=== PATIENT | female | born 1940 | race Caucasian/White ===

== ENCOUNTER 2019-12-03 02:08 | Emergency (ER) | payer MEDICARE, MEDICAID, SELFPAY ==
[2019-12-03 01:53] VITALS: BP 171/51; PULSE 95; RESP 16; TEMP 36.5; O2SAT 98; BMI 33.5
--- NOTE | 2019-12-03 02:05 | CTR_ITS ---
PROCEDURE INFORMATION: Exam: CT Head Without Contrast Exam date and time: 12/03/2019 2:09 AM Age: 79 years old Clinical indication: Injury or trauma; Fall; Initial encounter; Blunt trauma (contusions or hematomas) and laceration; Consciousness not specified; Without residual foreign body; Forehead; Additional info: Fall, head lac TECHNIQUE: Imaging protocol: Computed tomography of the head without contrast. Total DLP: 831.73 mGy-cm Radiation optimization: All CT scans at this facility use at least one of these dose optimization techniques: automated exposure control; mA and/or kV adjustment per patient size (includes targeted exams where dose is matched to clinical indication); or iterative reconstruction. COMPARISON: No relevant prior studies available. FINDINGS: Brain: No acute intracranial hemorrhage or mass effect. There is decreased attenuation in the periventricular white matter, likely from microvascular disease. No definite acute infarct by CT. Ventricles: Ventricle size is normal for age. Bones/joints: No definite acute skull fracture. Sinuses: Minimal mucosal thickening in the left maxillary sinus. Included paranasal sinuses otherwise appear essentially clear. Mastoid air cells: No significant acute finding. Vasculature: Vascular calcifications in the internal carotid and vertebral basilar systems. CT/CT head wo con* [id number] IMPRESSION: 1. No acute intracranial hemorrhage or mass effect. 2. Changes of microvascular disease. 3. Other findings discussed above. Radiation Dose CTDIVOL = (mGy): DLP = 831.73 (mGy-cm)
[2019-12-03 02:06] VITALS: BP 164/60; PULSE 66; RESP 18; TEMP 37.2; O2SAT 99
--- NOTE | 2019-12-03 02:06 | ECG_ITS ---
Measurements Intervals [place] Rate: 66 P: -86 [place]: 158 QRS: 61 QRSD: 96 T: 57 QT: 393 QTc: 414 ECTOPIC ATRIAL RHYTHM ABNORMAL RHYTHM ECG No previous ECG available for comparison Electronically Signed On 12-03-2019 8:09:17 [employer] by Lazaro Broussard M.D. [email or web address]
--- NOTE | 2019-12-03 02:16 | PC.NURSE ---
Pt presents to ER after falling in home and hitting her head. Per pt, she got up from bed to go to bathroom, but then because nauseous, then dizzy, then fell onto floor.
--- NOTE | 2019-12-03 02:19 | W.ED.FALL ---
Documented by User: IWONA Painter 12/03/19 02:25 HPI - Fall General: Chief Complaint: Fall Stated Complaint: FALL/PASSING OUT Time Seen by Provider: 12/03/19 02:09 History of Present Illness: HPI Narrative: Patient arrived by EMS. Patient complains of fall earlier tonight. States she hit her head not sure what she hit. Patient says she felt like she was going to pass out but did not pass out. No loss of consciousness. Patient does have a laceration to middle of forehead extending up into the scalp line vertical. Patient denies shortness of breath chest pain or any other ongoing problems except possible UTI. MD complaint: fall Onset (ago): hour(s) Fall from: standing Fall witnessed: no Place fall occurred: home Loss of consciousness: None Prolonged down time: no Symptoms prior to fall: dizziness Location of injury: head Associated symptoms-after fall: Denies abdominal pain, chest pain or headache(s) Review of Systems General: Reports: 10 or more systems reviewed and unremarkable except in HPI and below (dizzieness) Const: Denies: fever, chills or body aches Eyes: Denies: change in vision or blurry vision ENMT: Denies: throat pain or nasal congestion Card: Denies: chest pain or shortness of breath on exertion Resp: Denies: shortness of breath, productive cough or non-productive cough GI: Denies: abdominal pain, nausea or vomiting : Reports: urinary frequency and urinary urgency Musc: Denies: extremity pain Skin/Breast: Denies: rash Neuro: Denies: headache Psych: Denies: anxiety or depression Emre/Lymph: Denies: easy bruising PFSH ED PFSH: Statuses (acute, chronic, etc) shown below reflect problem list status as previously entered and may not be historically accurate Social History Smoking and tobacco status: never smoked Physical Exam Narrative: EXAM NARRATIVE: 4 inch laceration vertical midline laceration of scalp and to forehead. Wound was closed with tissue adhesive without any complications. Const: COMMON NORMALS: no apparent distress, average body habitus and oriented x3 HENMT: COMMON NORMALS: normocephalic HEAD & SCALP: normal to inspection and normocephalic FACE & SINUS: normal facial exam Eye: COMMON NORMALS: conjunctivae normal GENERAL EYE: normal appearance of both eyes CONJUNCTIVA: Yes conjunctivae normal Neck/C-Spine: COMMON NORMALS: full ROM and no JVD CERVICAL SPINE: Yes cervical ROM normal and No pain with cervical ROM Chest: COMMONS NORMALS: inspection of chest normal Resp: COMMON NORMALS: normal respiratory effort and clear to auscultation bilaterally AUSCULTATION: clear to auscultation bilaterally Cardio: COMMON NORMALS: no JVD, regular rate and regular rhythm RATE: regular rate RHYTHM: regular rhythm GI: COMMON NORMALS: normal to inspection, nondistended, normoactive bowel sounds Extremity: COMMON NORMALS: normal to inspection and full ROM Neuro: COMMON NORMALS: oriented x3 and CN's II-XII intact bilaterally Procedures Laceration Laceration 1: Site: scalp and face Size (cm): 4 Description: linear Depth: simple, single layer Pre-repair: wound explored Skin layer closed with: other (tissue adhesive) Course Vital Signs: Vital signs: Vital Signs Temperature 97.7 F 12/03/19 01:53 Pulse Rate 95 12/03/19 01:53 Respiratory Rate 16 12/03/19 01:53 Blood Pressure 171/51 12/03/19 01:53 Pulse Oximetry 98 12/03/19 01:53 MDM - Fall Lab Data: Labs: Lab Results 12/03/19 12/03/19 12/03/19 Range/Units 02:00 02:00 03:10 WBC 14.3 H (4.0-10.0) 10^3/ uL RBC 5.39 H (4.1-5.3) 10^6/u L Hgb 15.2 (11.5-15.3) g/dL Hct 48.5 H (37.0-47.0) % MCV 90.0 (81-99) fL MCH 28.2 (28.0-34.0) pg MCHC 31.3 (30.0-36.0) g/dL RDW 14.9 (12.1-15.1) % Plt Count 219 (130-400) 10^3/c mm MPV 12.0 H (7.4-10.4) fL Neut % (Auto) 78.8 % Lymph % (Auto) 14.6 % [place] % (Auto) 5.3 % Eos % (Auto) 0.7 % Baso % (Auto) 0.3 % Neut # (Auto) 11.3 H (1.8-7.7) 10^3/u L Lymph # (Auto) 2.1 (0.8-4.8) 10^3/u L [place] # (Auto) 0.8 (0.2-0.9) 10^3/u L Eos # (Auto) 0.1 (0.0-0.8) 10^3/u L Baso # (Auto) 0.1 (0.0-0.1) 10^3/u L Nucleated RBC % (a uto) 0 % Nucleated RBCs # 0.0 /100WBC Sodium Cancelled Potassium Cancelled Chloride Cancelled Carbon Dioxide Cancelled Anion Gap Cancelled BUN Cancelled Creatinine Cancelled GFR Calculation Cancelled Glucose Cancelled POC Glucose (70-110) mg/dL Calcium Cancelled Total Bilirubin Cancelled AST Cancelled ALT Cancelled Alkaline Phosphata se Cancelled Total Protein Cancelled Albumin Cancelled Globulin Cancelled Urine Color Yellow (Yellow) Urine Appearance Hazy A (CLEAR) Urine pH 5 (5-7) Ur Specific Gravit y 1.020 (1.005-1.030) Urine Protein Neg (Negative) Urine Glucose (UA) 2+ (Normal) Urine Ketones Negative (Negative) Urine Occult Blood Neg (Negative) Urine Nitrate Negative (Negative) Urine Bilirubin Neg (NEGATIVE) Urine Urobilinogen Norm (Negative) mg/dL Ur Leukocyte Nevaeh ase Negative (Negative) Ur Squamous Epith Cells 10-15 H (0-5) Urine Bacteria Trace (NONE) Hyaline Casts 10-15 H Fine Granular Cast s 0-4 H /lpf Other Casts 0-4 /lpf 12/03/19 12/03/19 Range/Units 03:40 03:43 WBC (4.0-10.0) 10^3/ uL RBC (4.1-5.3) 10^6/u L Hgb (11.5-15.3) g/dL Hct (37.0-47.0) % MCV (81-99) fL MCH (28.0-34.0) pg MCHC (30.0-36.0) g/dL RDW (12.1-15.1) % Plt Count (130-400) 10^3/c mm MPV (7.4-10.4) fL Neut % (Auto) % Lymph % (Auto) % [place] % (Auto) % Eos % (Auto) % Baso % (Auto) % Neut # (Auto) (1.8-7.7) 10^3/u L Lymph # (Auto) (0.8-4.8) 10^3/u L [place] # (Auto) (0.2-0.9) 10^3/u L Eos # (Auto) (0.0-0.8) 10^3/u L Baso # (Auto) (0.0-0.1) 10^3/u L Nucleated RBC % (a uto) % Nucleated RBCs # /100WBC Sodium 139 Potassium 5.3 H Chloride 100 Carbon Dioxide 25 Anion Gap 19.3 H BUN 19 Creatinine 1.0 H GFR Calculation Glucose 328 H POC Glucose 323 (70-110) mg/dL Calcium 10.6 H Total Bilirubin 0.4 AST 24 ALT 26 Alkaline Phosphata se 93 Total Protein 8.0 Albumin 4.7 Globulin 3.3 Urine Color (Yellow) Urine Appearance (CLEAR) Urine pH (5-7) Ur Specific Gravit y (1.005-1.030) Urine Protein (Negative) Urine Glucose (UA) (Normal) Urine Ketones (Negative) Urine Occult Blood (Negative) Urine Nitrate (Negative) Urine Bilirubin (NEGATIVE) Urine Urobilinogen (Negative) mg/dL Ur Leukocyte Nevaeh ase (Negative) Ur Squamous Epith Cells (0-5) Urine Bacteria (NONE) Hyaline Casts Fine Granular Cast s /lpf Other Casts /lpf EKG Data^: EKG 1: EKG interpretation date: 12/03/19 EKG interpretation time: 02:25 Interpretation: 66bpm, ectopic atrial , pr-158ms Discharge Plan Discharge Patient Disposition: Home, Self-Care Clinical Impression: Fall Qualifiers: Encounter type: initial encounter Qualified Code(s): W19.XXXA - Unspecified fall, initial encounter Laceration of head Qualifiers: Encounter type: initial encounter Location of open wound of head: other part of head Foreign body presence: without foreign body Qualified Code(s): S01.81XA - Laceration without foreign body of other part of head, initial encounter Condition: Stable Prescriptions: No Action metformin 500 mg Tablet 500 mg PO BID RF: 0 verapamil 360 mg Capsule,Ext Rel. Pellets 24 Hr 360 mg PO QAM RF: 0 lisinopril 20 mg Tablet 20 mg PO BID RF: 0 Mucinex 600 mg Tablet Extended Release 12hr 600 mg PO Q12H RF: 0 Zyrtec 10 mg Tablet 10 mg PO DAILY RF: 0 furosemide 20 mg Tablet 20 mg PO DAILY RF: 0 potassium chloride 20 mEq Tablet Extended Release 20 meq PO DAILY RF: 0 Levemir FlexTouch U-100 Insuln 70 units SUBCUT DAILY RF: 0 Discharge Orders: Discharge Order (Routine); Ordered 12/03/19 Ordered By: Danie New Referrals: Marcelina Enrique FNP-C [Primary Care Provider] - Discharge Diet: Advance as tolerated Discharge Activity: Resume usual activity Patient Instructions: Laceration (ED), Minor Head Injury (ED) Coding Level of Care Code ED Welding Rod Coater for Chg Fwd Exam Problem Focused Documented by User: Danie New MD 12/03/19 04:23 HPI - Fall General: Chief Complaint: Fall Stated Complaint: FALL/PASSING OUT Time Seen by Provider: 12/03/19 02:09 [facility] ED PFSH: Statuses (acute, chronic, etc) shown below reflect problem list status as previously entered and may not be historically accurate Social History Smoking and tobacco status: never smoked Course Vital Signs: Vital signs: Vital Signs Temperature 97.7 F 12/03/19 01:53 Pulse Rate 95 12/03/19 01:53 Respiratory Rate 16 12/03/19 01:53 Blood Pressure 171/51 12/03/19 01:53 Pulse Oximetry 98 12/03/19 01:53 MDM - Fall MDM Narrative: Medical decision making narrative: Patient presents here with head injury and head laceration from a fall. Patient is well-appearing here and head CT is normal. She did not have any chest pain prior or syncope. Patient is stable for discharge and return with worsening. I saw patient with midlevel Dave. Tian and agree with his history and plan. Lab Data: Labs: Lab Results 12/03/19 12/03/19 12/03/19 Range/Units 02:00 02:00 03:10 WBC 14.3 H (4.0-10.0) 10^3/ uL RBC 5.39 H (4.1-5.3) 10^6/u L Hgb 15.2 (11.5-15.3) g/dL Hct 48.5 H (37.0-47.0) % MCV 90.0 (81-99) fL MCH 28.2 (28.0-34.0) pg MCHC 31.3 (30.0-36.0) g/dL RDW 14.9 (12.1-15.1) % Plt Count 219 (130-400) 10^3/c mm MPV 12.0 H (7.4-10.4) fL Neut % (Auto) 78.8 % Lymph % (Auto) 14.6 % [place] % (Auto) 5.3 % Eos % (Auto) 0.7 % Baso % (Auto) 0.3 % Neut # (Auto) 11.3 H (1.8-7.7) 10^3/u L Lymph # (Auto) 2.1 (0.8-4.8) 10^3/u L [place] # (Auto) 0.8 (0.2-0.9) 10^3/u L Eos # (Auto) 0.1 (0.0-0.8) 10^3/u L Baso # (Auto) 0.1 (0.0-0.1) 10^3/u L Nucleated RBC % (a uto) 0 % Nucleated RBCs # 0.0 /100WBC Sodium Cancelled Potassium Cancelled Chloride Cancelled Carbon Dioxide Cancelled Anion Gap Cancelled BUN Cancelled Creatinine Cancelled GFR Calculation Cancelled Glucose Cancelled POC Glucose (70-110) mg/dL Calcium Cancelled Total Bilirubin Cancelled AST Cancelled ALT Cancelled Alkaline Phosphata se Cancelled Total Protein Cancelled Albumin Cancelled Globulin Cancelled Urine Color Yellow (Yellow) Urine Appearance Hazy A (CLEAR) Urine pH 5 (5-7) Ur Specific Gravit y 1.020 (1.005-1.030) Urine Protein Neg (Negative) Urine Glucose (UA) 2+ (Normal) Urine Ketones Negative (Negative) Urine Occult Blood Neg (Negative) Urine Nitrate Negative (Negative) Urine Bilirubin Neg (NEGATIVE) Urine Urobilinogen Norm (Negative) mg/dL Ur Leukocyte Nevaeh ase Negative (Negative) Ur Squamous Epith Cells 10-15 H (0-5) Urine Bacteria Trace (NONE) Hyaline Casts 10-15 H Fine Granular Cast s 0-4 H /lpf Other Casts 0-4 /lpf 12/03/19 12/03/19 Range/Units 03:40 03:43 WBC (4.0-10.0) 10^3/ uL RBC (4.1-5.3) 10^6/u L Hgb (11.5-15.3) g/dL Hct (37.0-47.0) % MCV (81-99) fL MCH (28.0-34.0) pg MCHC (30.0-36.0) g/dL RDW (12.1-15.1) % Plt Count (130-400) 10^3/c mm MPV (7.4-10.4) fL Neut % (Auto) % Lymph % (Auto) % [place] % (Auto) % Eos % (Auto) % Baso % (Auto) % Neut # (Auto) (1.8-7.7) 10^3/u L Lymph # (Auto) (0.8-4.8) 10^3/u L [place] # (Auto) (0.2-0.9) 10^3/u L Eos # (Auto) (0.0-0.8) 10^3/u L Baso # (Auto) (0.0-0.1) 10^3/u L Nucleated RBC % (a uto) % Nucleated RBCs # /100WBC Sodium 139 Potassium 5.3 H Chloride 100 Carbon Dioxide 25 Anion Gap 19.3 H BUN 19 Creatinine 1.0 H GFR Calculation Glucose 328 H POC Glucose 323 (70-110) mg/dL Calcium 10.6 H Total Bilirubin 0.4 AST 24 ALT 26 Alkaline Phosphata se 93 Total Protein 8.0 Albumin 4.7 Globulin 3.3 Urine Color (Yellow) Urine Appearance (CLEAR) Urine pH (5-7) Ur Specific Gravit y (1.005-1.030) Urine Protein (Negative) Urine Glucose (UA) (Normal) Urine Ketones (Negative) Urine Occult Blood (Negative) Urine Nitrate (Negative) Urine Bilirubin (NEGATIVE) Urine Urobilinogen (Negative) mg/dL Ur Leukocyte Nevaeh ase (Negative) Ur Squamous Epith Cells (0-5) Urine Bacteria (NONE) Hyaline Casts Fine Granular Cast s /lpf Other Casts /lpf Imaging Data^: CT Head: Attestation: I personally reviewed and interpreted this imaging study as follows: Radiologist's impression: Ordering Physician: Flora Tian Sr, [facility] Date of Service: 12/03/19 Procedure(s): CT head wo con* [id number] Accession Number(s): [id number] cc: Flora Tian Sr, [facility] PROCEDURE INFORMATION: Exam: CT Head Without Contrast Exam date and time: 12/03/2019 2:09 AM Age: 79 years old Clinical indication: Injury or trauma; Fall; Initial encounter; Blunt trauma (contusions or hematomas) and laceration; Consciousness not specified; Without residual foreign body; Forehead; Additional info: Fall, head lac TECHNIQUE: Imaging protocol: Computed tomography of the head without contrast. Total DLP: 831.73 mGy-cm Radiation optimization: All CT scans at this facility use at least one of these dose optimization techniques: automated exposure control; mA and/or kV adjustment per patient size (includes targeted exams where dose is matched to clinical indication); or iterative reconstruction. COMPARISON: No relevant prior studies available. FINDINGS: Brain: No acute intracranial hemorrhage or mass effect. There is decreased attenuation in the periventricular white matter, likely from microvascular disease. No definite acute infarct by CT. Ventricles: Ventricle size is normal for age. Bones/joints: No definite acute skull fracture. Sinuses: Minimal mucosal thickening in the left maxillary sinus. Included paranasal sinuses otherwise appear essentially clear. Mastoid air cells: No significant acute finding. Vasculature: Vascular calcifications in the internal carotid and vertebral basilar systems. CT/CT head wo con* [id number] IMPRESSION: 1. No acute intracranial hemorrhage or mass effect. 2. Changes of microvascular disease. 3. Other findings discussed above. Discharge Plan Discharge Patient Disposition: Home, Self-Care Clinical Impression: Fall Qualifiers: Encounter type: initial encounter Qualified Code(s): W19.XXXA - Unspecified fall, initial encounter Laceration of head Qualifiers: Encounter type: initial encounter Location of open wound of head: other part of head Foreign body presence: without foreign body Qualified Code(s): S01.81XA - Laceration without foreign body of other part of head, initial encounter Condition: Stable Prescriptions: No Action metformin 500 mg Tablet 500 mg PO BID RF: 0 verapamil 360 mg Capsule,Ext Rel. Pellets 24 Hr 360 mg PO QAM RF: 0 lisinopril 20 mg Tablet 20 mg PO BID RF: 0 Mucinex 600 mg Tablet Extended Release 12hr 600 mg PO Q12H RF: 0 Zyrtec 10 mg Tablet 10 mg PO DAILY RF: 0 furosemide 20 mg Tablet 20 mg PO DAILY RF: 0 potassium chloride 20 mEq Tablet Extended Release 20 meq PO DAILY RF: 0 Levemir FlexTouch U-100 Insuln 70 units SUBCUT DAILY RF: 0 Discharge Orders: Discharge Order (Routine); Ordered 12/03/19 Ordered By: Danie New Referrals: Marcelina Enrique FNP-C [Primary Care Provider] - Discharge Diet: Advance as tolerated Discharge Activity: Resume usual activity Patient Instructions: Laceration (ED), Minor Head Injury (ED) Coding Level of Care Code ED Welding Rod Coater for Cheryle Russell Exam Problem Focused
[2019-12-03 02:51] LABS: Basophils # 0.1 10^3/uL (0.0-0.1); Basophils % 0.3 %; Eosinophils # 0.1 10^3/uL (0.0-0.8); Eosinophils % 0.7 %; Hematocrit 48.5 % (37.0-47.0); Hemoglobin 15.2 g/dL (11.5-15.3); Lymphocytes # 2.1 10^3/uL (0.8-4.8); Lymphocytes % 14.6 %; Mean Corpuscular HGB Conc 31.3 g/dL (30.0-36.0); Mean Corpuscular Hemoglobin 28.2 pg (28.0-34.0); Monocytes # 0.8 10^3/uL (0.2-0.9); Monocytes % 5.3 %; Neutrophils # 11.3 10^3/uL (1.8-7.7); Neutrophils % 78.8 %; Nucleated Red Blood Cells % 0 %; Platelet Count 219 10^3/cmm (130-400); Red Blood Count 5.39 10^6/uL (4.1-5.3); Red Cell Distribution Width 14.9 % (12.1-15.1); White Blood Count 14.3 10^3/uL (4.0-10.0)
[2019-12-03 03:06] VITALS: BP 113/60; PULSE 63; RESP 18; O2SAT 97
[2019-12-03 03:47] LABS: Glucose Point of Care 323 mg/dL (70-110)
[2019-12-03 03:52] LABS: Bilirubin Urine Neg (NEGATIVE); Blood Urine Neg (Negative); Glucose Urine UA 2+ (Normal); Ketones Urine Negative (Negative); Leukocyte Esterase Urine Negative (Negative); Nitrate Urine Negative (Negative); Protein Urine Neg (Negative); Urine Appearance Hazy (CLEAR); Urine Color Yellow (Yellow); Urobilinogen Urine Norm (Negative); pH Urine 5 (5-7)
[2019-12-03 03:53] LABS: Add Urine Microscopic? YES
[2019-12-03 04:00] LABS: Fine Granular Casts Urine 0-4 /lpf
[2019-12-03 04:00] LABS: Alanine Aminotransferase 26 U/L (0-33); Albumin Level 4.7 g/dL (3.5-5.2); Alkaline Phosphatase 93 IU/L (35-105); Anion Gap 19.3 (5-19); Aspartate Amino Transferase 24 U/L (0-32); Blood Urea Nitrogen 19 mg/dL (8-23); Calcium 10.6 mg/Dl (8.8-10.2); Carbon Dioxide 25 mmol/L (22-29); Chloride 100 mmol/L (98-107); Globulin 3.3 g/dL (1.3-4.6); Glucose 328 mg/dL (74-106); Potassium 5.3 mmol/L (3.5-5.1); Sodium 139 mmol/L (136-145); Total Bilirubin 0.4 mg/dL (0.15-1.2)
[2019-12-03 04:02] LABS: Bacteria Urine TRACE
[2019-12-03 04:03] LABS: Add Urine Culture? No; Other Casts Urine 0-4 /lpf
[2019-12-03 04:28] VITALS: BP 147/57; PULSE 64; RESP 18; O2SAT 97
[2019-12-03] MEDS: HYDROcodone-acetaminophen 5-325 mg Tablet 1 TAB PO (04:34)
[2019-12-03] MEDS: insulin regular-human 100 units/1 mL 5 UNIT SUBCUT (04:50)
[2019-12-03 07:55] LABS: WBC Urine 0-4 /hpf (0-5)
== END 2019-12-03 04:56 | disposition home or self-care (01) ==
PROVIDERS: Nurse Practitioner Family; Emergency Provider Emergency Medicine; Family Provider Nurse Practitioner Family; PCP Nurse Practitioner Family
DX: S01.01XA Laceration without foreign body of scalp, initial encounter (principal); W19.XXXA Unspecified fall, initial encounter; Y92.009 Unspecified place in unspecified non-institutional (private) residence as the place of occurrence of the external cause; Z79.4 Long term (current) use of insulin
CPT/HCPCS: 12002; 36415; 36416; 70450; 80053; 81003; 82962; 85025; 93005; 96372; 99282; A9270; J1815

== ENCOUNTER → 2020-02-20 12:48 | Outpatient (BNVA) | payer MEDICARE, MEDICAID, SELFPAY | PROVIDERS: Family Provider Nurse Practitioner Family; PCP Nurse Practitioner Family; Visit Provider Nurse Practitioner Family | DX: J06.9 Acute upper respiratory infection, unspecified (principal); E11.65 Type 2 diabetes mellitus with hyperglycemia; E55.9 Vitamin D deficiency, unspecified; E03.8 Other specified hypothyroidism; I10 Essential (primary) hypertension; Z79.4 Long term (current) use of insulin | CPT/HCPCS: 80053; 80061; 82306; 84443; 85025 ==

== ENCOUNTER → 2020-03-12 00:01 | Outpatient (BNVA) | payer MEDICARE, MEDICAID, SELFPAY | PROVIDERS: Family Provider Nurse Practitioner Family; PCP Nurse Practitioner Family; Visit Provider Nurse Practitioner | DX: E11.9 Type 2 diabetes mellitus without complications (principal) | CPT/HCPCS: 81000; 83036 ==

== ENCOUNTER 2020-04-07 08:56 | Outpatient (CLI) | payer MEDICARE, MEDICAID, SELFPAY ==
--- NOTE | 2020-04-07 09:11 | CT_ITS ---
WS: [id number] CTA NECK TECHNIQUE: Contrast enhanced CTA of the neck with coronal and sagittal reformatted images and maximum intensity projection (MIP) images. NASCET criteria utilized. CLINICAL INFORMATION: Carotid stenosis COMPARISON: September 01, 2019 and March 21, 2018 DLP: [address] scans at [facility] use at least one of these dose optimization techniques: automat ed exposure control; mA and/or kV adjustment per patient size (includes targeted exams where dose is matched to clinical indication); or iterative reconstruction. FINDINGS: RIGHT: Right common carotid artery is patent. Moderate atheromatous disease right carotid bulb extend ing into the ICA with right proximal ICA stenosis measuring approximately 60% unchanged from previous . Right ICA is patent to the skull base. LEFT: Left common carotid artery is patent. No significant left ICA stenosis. Left ICA is patent to t he skull base. Codominant and patent vertebral arteries bilaterally. Moderate calcified atheromatous disease involvi ng both cavernous carotid arteries unchanged. Proximal gulkana of Zhu appears unremarkable. Mastoid air cells are well aerated. Paranasal sinuses are well aerated. Mild mucosal thickening in th e ethmoid air cells. Partially visualized moderate intracranial parenchymal volume loss. Parotid glands are normal. Normal visualized tongue base. No evidence of supraglottic or glottic mass . Mild spondylitic changes cervical spine. CT/CT angio neck 50591 IMPRESSION: 1. Right ICA stenosis measures approximately 60% similar to previous. 2. Prior postoperative changes left carotid endarterectomy. No recurrent steno sis. 3. Codominant and patent vertebral arteries bilaterally. Proximal basilar akshat ry is patent. 4. Intracranial cavernous carotid calcification with moderate stenosis unchang ed.. 5. Partially visualized intracranial [place] of Zhu appears unremarkable.
[2020-04-07 09:59] LABS: Blood Urea Nitrogen 14 mg/dL (8-23)
[2020-04-07] MEDS: iohexol 350 mg/mL 100 mL Btl IV (10:14)
== END 2020-04-07 08:57 | disposition home or self-care (01) ==
LOC: RADWPI 09:02
PROVIDERS: Family Provider Nurse Practitioner Family; PCP Nurse Practitioner Family; Visit Provider Internal Medicine Cardiovascular Disease
DX: I65.21 Occlusion and stenosis of right carotid artery (principal)
CPT/HCPCS: 70498; 82565; 84520; Q9967

== ENCOUNTER → 2020-04-26 11:55 | Outpatient (BNVA) | payer MEDICARE, MEDICAID, SELFPAY | PROVIDERS: Family Provider Nurse Practitioner Family; PCP Nurse Practitioner Family; Visit Provider Nurse Practitioner Family | DX: E78.5 Hyperlipidemia, unspecified (principal); J30.89 Other allergic rhinitis; R60.0 Localized edema; E11.69 Type 2 diabetes mellitus with other specified complication; Z76.0 Encounter for issue of repeat prescription; K21.9 Gastro-esophageal reflux disease without esophagitis; M54.5 Low back pain; M25.551 Pain in right hip; Z91.19 Patient's noncompliance with other medical treatment and regimen; Z79.4 Long term (current) use of insulin; E03.8 Other specified hypothyroidism; I10 Essential (primary) hypertension; I87.2 Venous insufficiency (chronic) (peripheral); I65.23 Occlusion and stenosis of bilateral carotid arteries; W19.XXXA Unspecified fall, initial encounter; E04.1 Nontoxic single thyroid nodule; B37.3 Candidiasis of vulva and vagina; E55.9 Vitamin D deficiency, unspecified | CPT/HCPCS: 80053; 80061; 81000; 82306; 83036; 84443; 85025 ==

== ENCOUNTER → 2020-05-03 11:41 | Outpatient (BNVA) | payer MEDICARE, MEDICAID, SELFPAY | PROVIDERS: Family Provider Nurse Practitioner Family; PCP Nurse Practitioner Family; Visit Provider Nurse Practitioner Family | DX: M25.551 Pain in right hip (principal); W19.XXXA Unspecified fall, initial encounter | CPT/HCPCS: 73502 ==

== ENCOUNTER 2020-05-31 13:55 | Outpatient (CLI) | payer MEDICARE, MEDICAID, SELFPAY ==
--- NOTE | 2020-05-31 14:09 | USCV_ITS ---
Christina Julien Age: 79 Gender: F : 1940 Exam Date: 05/31/2020 14:33 Ordering Phys: Shyam Bellamy MD ([email or web address]) Technologist: ASHWIN OLIVIA [place] [facility] [place]: CAROTID STENOSIS Risk Factors: Previous Vascular Surgery: L CEA Right Brachial BP: / Left Brachial BP: / Right Left Velocity (cm/s) Spectral Plaque Velocity (cm/s) Spectral Plaque Syst/Diast Broadening Syst/Diast Broadening 106.90/12.10 Prox CCA 100.30/ 13.40 90.40/ 9.90 Mid CCA 82.80 / 9.90 64.50/ 10.90 Distal CCA 66.40 / 9.20 149.10/21.80 Prox ICA 86.20 / 22.50 104.10/15.50 Mid ICA 124.60/ 29.80 139.80/34.20 Distal ICA 88.90 / 15.10 155.40 ECA 88.60 1.15 ICA/CCA 1.50 Antegrade Vertebral Antegrade 72.30/ 18.40 cm/s 52.20/ 11.90 cm/s Bi Subclavian Bi 118.0 108.1 0 0 FINDINGS Moderate to heavy heterogeneous plaques of the right bifurcation and proximal internal carotid artery. Mild to moderate plaques of the left bifurcation and proximal internal carotid artery Antegrade flow in the vertebral arteries bilaterally Normal Doppler flow velocities in the external carotid arteries bilaterally CONCLUSIONS Moderate to heavy heterogeneous plaques at the right bifurcation and proximal internal carotid arterywith velocity elevation consistent with 50-79% stenosis. Mild to moderate plaques at the left bifurcation and proximal internal carotid arterywith velocity elevation consistent with 16-49% stenosis. Made to the study from 08/20/2018, there is progression of disease bilaterally Dr Shyam Bellamy MD [facility] (Electronically Signed) Final Date: 31 May 2020 21:10 S
--- NOTE | 2020-05-31 14:09 | US_ITS ---
WS: [id number] THYROID ULTRASOUND HISTORY: hypothyroid COMPARISON: 03/21/2018 Right lobe: 2.3 cm x 1.4 cm x 0.8 cm. Volume: 1.3 cm3. Small atrophic fibrotic RIGHT thyroid. Benign appearing subcentimeter hypoechoic nodule in the inferi or gland measures 4 x 3.5 mm. Left lobe: 1.8 cm x 1.1 cm x 0.6 cm. Volume: 0.6 cm3. Small atrophic gland. There is a very small ill-defined subcentimeter nodule in the inferior gland me asuring 4 x 3 x 4 mm. Isthmus: 0.3 cm. US/US thyroid 72578 IMPRESSION: 1. Shrunken fibrotic thyroid. 2. Bilateral subcentimeter thyroid nodules. Yearly evaluation by ultrasound re commended.
== END 2020-05-31 13:56 | disposition home or self-care (01) ==
PROVIDERS: Family Provider Nurse Practitioner Family; PCP Nurse Practitioner Family; Visit Provider Nurse Practitioner Family
DX: I65.23 Occlusion and stenosis of bilateral carotid arteries (principal); E03.9 Hypothyroidism, unspecified; E04.2 Nontoxic multinodular goiter
CPT/HCPCS: 76536; 93880

== ENCOUNTER → 2020-07-05 10:52 | Outpatient (BNVA) | payer MEDICARE, MEDICAID, SELFPAY | PROVIDERS: Family Provider Nurse Practitioner Family; PCP Nurse Practitioner Family; Visit Provider Nurse Practitioner Family | DX: R05 Cough (principal); E11.69 Type 2 diabetes mellitus with other specified complication; Z79.4 Long term (current) use of insulin; B37.3 Candidiasis of vulva and vagina | CPT/HCPCS: 71046; 81000 ==

== ENCOUNTER 2020-07-13 10:09 | Outpatient (CLI) | payer MEDICARE, MEDICAID, SELFPAY ==
--- NOTE | 2020-07-13 10:30 | CT_ITS ---
WS: [id number] CTA THORACIC TECHNIQUE: Contrast enhanced CTA of the thoracic aorta with coronal and sagittal reformatted images a nd maximum intensity projection (MIP) images. CLINICAL INFORMATION: abnormal chest cough COMPARISON: Radiograph July 05, 2020 DLP: 683.[address] scans at [facility] use at least one of these dose optimization techniques: automat ed exposure control; mA and/or kV adjustment per patient size (includes targeted exams where dose is matched to clinical indication); or iterative reconstruction. FINDINGS: Normal caliber thoracic aorta. Mild aortic calcification. Mild coronary calcification. Normal caliber descending thoracic aorta. Visualized upper abdominal aorta is normal caliber with mild to moderate aortic calcification. Lungs are well aerated. Subsegmental atelectasis in the lung bases. No suspicious pulmonary parenchym al opacities. No focal pneumonia. Moderate thoracic kyphosis. Hypertrophic changes mid thoracic spine. Proximal main pulmonary arteries are normal. Segmental and subsegmental pulmonary arteries appear nor mal. No evidence for pulmonary embolus. No mediastinal or hilar lymphadenopathy. Shotty AP window and mediastinal lymph nodes. Incidental prominent mediastinal fat corresponds to the radiographic findin gs. No axillary lymphadenopathy. Normal GE junction. Adrenal glands are normal. CT/CT angio chest [id number] IMPRESSION: 1. Normal caliber thoracic aorta. 2. Proximal pulmonary arteries are normal. No evidence for pulmonary embolus. 3. Mild chronic emphysematous changes. No acute pulmonary infiltrates. Subsegm ental atelectasis in the lung bases. 4. No mediastinal or hilar lymphadenopathy. 5. No other significant findings.
[2020-07-13 10:49] LABS: Blood Urea Nitrogen 22 mg/dL (8-23)
[2020-07-13] MEDS: iohexol 350 mg/mL 100 mL Btl IV (11:04)
== END 2020-07-13 10:10 | disposition home or self-care (01) ==
LOC: RADWPI 10:15
PROVIDERS: Family Provider Nurse Practitioner Family; PCP Nurse Practitioner Family; Visit Provider Nurse Practitioner Family
DX: R05 Cough (principal); R93.89 Abnormal findings on diagnostic imaging of other specified body structures; J98.11 Atelectasis
CPT/HCPCS: 71275; 82565; 84520; Q9967

== ENCOUNTER → 2020-09-22 10:45 | Outpatient (BNVA) | payer MEDICARE, MEDICAID, SELFPAY | PROVIDERS: Family Provider Nurse Practitioner Family; PCP Nurse Practitioner Family; Visit Provider Nurse Practitioner Family | DX: E11.69 Type 2 diabetes mellitus with other specified complication (principal); B37.3 Candidiasis of vulva and vagina; R30.0 Dysuria; Z79.4 Long term (current) use of insulin | CPT/HCPCS: 80053; 80061; 81000; 83036; 84443; 85025 ==

== ENCOUNTER → 2020-11-04 10:49 | Outpatient (BNVA) | payer MEDICARE, MEDICAID, SELFPAY | PROVIDERS: Family Provider Nurse Practitioner Family; PCP Nurse Practitioner Family; Visit Provider Nurse Practitioner Family | DX: R30.0 Dysuria (principal); R32 Unspecified urinary incontinence | CPT/HCPCS: 81000 ==

== ENCOUNTER → 2021-02-09 10:48 | Outpatient (BNVA) | payer MEDICARE, MEDICAID, SELFPAY | PROVIDERS: Family Provider Nurse Practitioner Family; PCP Nurse Practitioner Family; Visit Provider Nurse Practitioner Family | DX: E11.69 Type 2 diabetes mellitus with other specified complication (principal); Z79.4 Long term (current) use of insulin; E55.9 Vitamin D deficiency, unspecified; E03.8 Other specified hypothyroidism; E78.5 Hyperlipidemia, unspecified; B37.2 Candidiasis of skin and nail; I10 Essential (primary) hypertension; R60.0 Localized edema; I87.2 Venous insufficiency (chronic) (peripheral); R32 Unspecified urinary incontinence; K21.9 Gastro-esophageal reflux disease without esophagitis; E04.1 Nontoxic single thyroid nodule; I65.23 Occlusion and stenosis of bilateral carotid arteries; B37.3 Candidiasis of vulva and vagina; Z91.19 Patient's noncompliance with other medical treatment and regimen | CPT/HCPCS: 80053; 80061; 82306; 83036; 84443; 85025 ==

== ENCOUNTER → 2021-02-22 11:04 | Outpatient (BNVA) | payer MEDICARE, MEDICAID, SELFPAY | PROVIDERS: Family Provider Nurse Practitioner Family; PCP Nurse Practitioner Family; Visit Provider Nurse Practitioner Family | DX: M25.50 Pain in unspecified joint (principal); R10.9 Unspecified abdominal pain; K46.9 Unspecified abdominal hernia without obstruction or gangrene; G62.9 Polyneuropathy, unspecified; B35.1 Tinea unguium; K92.1 Melena; R10.84 Generalized abdominal pain | CPT/HCPCS: 85651; 86140; 86431 ==

== ENCOUNTER 2021-03-17 09:21 | Outpatient (CLI) | payer MEDICARE, MEDICAID, SELFPAY ==
--- NOTE | 2021-03-17 09:30 | US_ITS ---
WS: [id number] ULTRASOUND ABDOMEN CLINICAL INFORMATION: R10.9 - Unspecified abdominal pain COMPARISON: None. FINDINGS: Liver Size: Mild hepatomegaly Craniocaudal length: 17.0 cm. Echogenicity: Coarse with fatty infiltration Surface nodularity: None. Mass (size and location): None. Bile ducts Intrahepatic ducts: Normal. Common bile duct diameter: 0.5 cm. Gallbladder Removed Pancreas Normal as visualized. Spleen Splenomegaly: None. Craniocaudal length: 10.6 cm. Right kidney: Normal. Hydronephrosis: None. Size: 10.9 cm x 4.7 cm x 4.7 cm Left kidney: Normal. Hydronephrosis: None. Size: 10.7 cm x 6.0 cm x 5.5 cm. Abdominal aorta and IVC Visualized portions are normal. Ascites: Mild ascites US/US abdomen complete* [id number] IMPRESSION: 1. Mild hepatomegaly with fatty infiltration. 2. Prior cholecystectomy. 3. No hydronephrosis in either kidney. 4. Mild ascites
== END 2021-03-17 09:22 | disposition home or self-care (01) ==
LOC: RAD 09:32
PROVIDERS: PCP Nurse Practitioner Family; Visit Provider Nurse Practitioner Family
DX: R10.9 Unspecified abdominal pain (principal); K46.9 Unspecified abdominal hernia without obstruction or gangrene; R16.0 Hepatomegaly, not elsewhere classified; K76.0 Fatty (change of) liver, not elsewhere classified; Z90.49 Acquired absence of other specified parts of digestive tract; R18.8 Other ascites
CPT/HCPCS: 76700

== ENCOUNTER → 2021-05-03 11:27 | Outpatient (BNVA) | payer MEDICARE, MEDICAID, SELFPAY | PROVIDERS: PCP Nurse Practitioner Family; Visit Provider Nurse Practitioner Family | DX: E11.69 Type 2 diabetes mellitus with other specified complication (principal); E55.9 Vitamin D deficiency, unspecified; E03.8 Other specified hypothyroidism; E78.5 Hyperlipidemia, unspecified; B37.2 Candidiasis of skin and nail; I10 Essential (primary) hypertension; R60.0 Localized edema; I87.2 Venous insufficiency (chronic) (peripheral); R32 Unspecified urinary incontinence; K21.9 Gastro-esophageal reflux disease without esophagitis; E04.1 Nontoxic single thyroid nodule; I65.23 Occlusion and stenosis of bilateral carotid arteries; B37.3 Candidiasis of vulva and vagina; Z91.19 Patient's noncompliance with other medical treatment and regimen; Z79.4 Long term (current) use of insulin; Z76.0 Encounter for issue of repeat prescription | CPT/HCPCS: 80053; 80061; 83036; 84443; 85025 ==

== ENCOUNTER → 2021-05-24 11:21 | Outpatient (BNVA) | payer MEDICARE, MEDICAID, SELFPAY | PROVIDERS: PCP Nurse Practitioner Family; Visit Provider Internal Medicine Rheumatology | DX: M19.90 Unspecified osteoarthritis, unspecified site (principal); M54.5 Low back pain; G89.29 Other chronic pain; Z79.899 Other long term (current) drug therapy; L23.5 Allergic contact dermatitis due to other chemical products; E11.9 Type 2 diabetes mellitus without complications; Z79.4 Long term (current) use of insulin; M19.041 Primary osteoarthritis, right hand; M79.89 Other specified soft tissue disorders; M77.32 Calcaneal spur, left foot; M20.11 Hallux valgus (acquired), right foot; M77.31 Calcaneal spur, right foot | CPT/HCPCS: 36415; 72100; 72170; 73130; 73630; 82306; 99204; 99214 ==

== ENCOUNTER 2021-05-24 12:49 | Outpatient (CLI) | payer MEDICARE, MEDICAID, SELFPAY ==
--- NOTE | 2021-05-24 12:57 | XRR_ITS ---
PROCEDURE INFORMATION: Exam: XR Left Foot Exam date and time: 05/24/2021 12:57 PM Age: 80 years old Clinical indication: Foot; Bilateral; Patient HX: 1st visit with ra Dr. GOMEZ states she has no pain today but in her lumbar spine. Bk pain is a 4 and the rest is at 0 at the moment. PT pain is transient and it worsens as she is walking or movement; Additional info: Z79.899 - other terminal operator (current) drug therapy TECHNIQUE: Imaging protocol: XR Left foot. Views: 3 or more views. COMPARISON: No relevant prior studies available. FINDINGS: There is soft tissue swelling involving the dorsal foot and ankle. Plantar calcaneal spur. The Achilles tendon is not well evaluated. There is probable edema or infiltration of Kager's fat pad. Mild scattered degenerative changes. No fracture, dislocation or subluxation. No periosteal reaction or supsicious bone lesion. No tibiotalar joint effusion. XR/XR foot LT min 3V* [id number] IMPRESSION: 1. There is soft tissue swelling involving the dorsal foot and ankle. 2. Plantar calcaneal spur. 3. There is probable edema or infiltration of Kager's fat pad. 4. No acute fracture is seen.
--- NOTE | 2021-05-24 12:57 | XRR_ITS ---
PROCEDURE INFORMATION: Exam: XR Lumbosacral Spine Exam date and time: 05/24/2021 12:57 PM Age: 80 years old Clinical indication: Low back pain; Prior surgery; Surgery type: Gb; Patient HX: 1st visit with ra Dr. GOMEZ states she has no pain today but in her lumbar spine. Bk pain is a 4 and the rest is at 0 at the moment. PT pain is transient and it worsens as she is walking or movement; Additional info: Z79.899 - other intermediate teacher (current) drug therapy TECHNIQUE: Imaging protocol: XR of the lumbosacral spine. Views: 2 or 3 views. COMPARISON: CR XR hip RT 2-3V wo/w pel* [id number] 05/03/2020 11:43 AM FINDINGS: There are 5 lumbar type vertebral bodies. There is a grade 1 anterolisthesis of L5 likely related to facet joint degeneration. [id number]-[id number] degenerative spine most prominent at L5-S1. The sacroiliac joints are grossly symmetric. No acute fracture is identified. XR/XR lumbar spine 2-3V* [id number] IMPRESSION: 1. There is a grade 1 anterolisthesis of L5 likely related to facet joint degeneration. 2. Kghl-ac-mzfebiec degenerative spine most prominent at L5-S1. 3. No acute fracture is seen.
--- NOTE | 2021-05-24 12:57 | XRR_ITS ---
PROCEDURE INFORMATION: Exam: XR Right Foot Exam date and time: 05/24/2021 12:57 PM Age: 80 years old Clinical indication: Foot; Bilateral; Patient HX: 1st visit with ra Dr. GOMEZ states she has no pain today but in her lumbar spine. Bk pain is a 4 and the rest is at 0 at the moment. PT pain is transient and it worsens as she is walking or movement; Additional info: Z79.899 - other fpc (current) drug therapy TECHNIQUE: Imaging protocol: XR Right foot. Views: 3 or more views. COMPARISON: No relevant prior studies available. FINDINGS: Mild hallux valgus deformity. There is soft tissue swelling involving the dorsal foot and ankle. Plantar calcaneal spur. The Achilles tendon is not well evaluated. There is probable edema or infiltration of Kager's fat pad. Mild scattered degenerative changes. No fracture, dislocation or subluxation. No periosteal reaction or supsicious bone lesion. No tibiotalar joint effusion. XR/XR foot RT min 3V* [id number] IMPRESSION: 1. Mild hallux valgus deformity. 2. There is soft tissue swelling involving the dorsal foot and ankle. 3. Plantar calcaneal spur. 4. There is probable edema or infiltration of Kager's fat pad. 5. No acute fracture is seen.
--- NOTE | 2021-05-24 12:57 | XRR_ITS ---
PROCEDURE INFORMATION: Exam: XR Left Hand Exam date and time: 05/24/2021 12:57 PM Age: 80 years old Clinical indication: Hand; Bilateral; Patient HX: 1st visit with ra Dr. GOMEZ states she has no pain today but in her lumbar spine. Bk pain is a 4 and the rest is at 0 at the moment. PT pain is transient and it worsens as she is walking or movement; Additional info: Z79.899 - other assistant terminal manager (current) drug therapy TECHNIQUE: Imaging protocol: XR Left hand. Views: 3 or more views. COMPARISON: No relevant prior studies available. FINDINGS: There are small lucent lesions involving several of the phalanges which could reflect multiple myeloma. Mild degenerative changes at the radiocarpal, triscaphe and 1st carpometacarpal joints. No acute fracture, dislocation or subluxation is seen. No chondrocalcinosis is seen. XR/XR hand LT min 3V* [id number] IMPRESSION: 1. There are small lucent lesions involving several of the phalanges which could reflect multiple myeloma. 2. Mild degenerative changes at the radiocarpal, triscaphe and 1st carpometacarpal joints. 3. No acute fracture
--- NOTE | 2021-05-24 12:57 | XRR_ITS ---
PROCEDURE INFORMATION: Exam: XR Right Hand Exam date and time: 05/24/2021 12:57 PM Age: 80 years old Clinical indication: Hand; Bilateral; Patient HX: 1st visit with ra Dr. GOMEZ states she has no pain today but in her lumbar spine. Bk pain is a 4 and the rest is at 0 at the moment. PT pain is transient and it worsens as she is walking or movement; Additional info: Z79.899 - other [facility] (current) drug therapy TECHNIQUE: Imaging protocol: XR Right hand. Views: 3 or more views. COMPARISON: No relevant prior studies available. FINDINGS: There are a few small lucent lesions involving the phalanges reflect multiple myeloma. The scapholunate and lunotriquetral intervals are maintained. No chondrocalcinosis is seen. Mild primary osteoarthritis at the interphalangeal joint of the thumb. No fracture, dislocation or subluxation. XR/XR hand RT min 3V* [id number] IMPRESSION: 1. There are a few small lucent lesions involving the phalanges that could reflect multiple myeloma. 2. Mild primary osteoarthritis at the interphalangeal joint of the thumb. 3. No acute fracture.
--- NOTE | 2021-05-24 12:57 | XRR_ITS ---
PROCEDURE INFORMATION: Exam: XR Pelvis Exam date and time: 05/24/2021 12:57 PM Age: 80 years old Clinical indication: Hip pain; Bilateral; Prior surgery; Surgery type: Gb; Additional info: Z79.899 - other fci (current) drug therapy TECHNIQUE: Imaging protocol: XR pelvis. Views: 1 or 2 view. COMPARISON: CR XR hip RT 2-3V wo/w pel* [id number] 05/03/2020 11:43 AM FINDINGS: No fracture, dislocation or subluxation. Possible small sclerotic lesion in the left iliac wing. Possible subtle sclerotic lesion in intertrochanteric left femur. No evidence of small-bowel obstruction. There is a structure in the visualized upper abdomen that may reflect a prominent loop of gas-filled colon. Minimal degenerative changes at the hips. No gross free air. XR/XR pelvis 1-2V* [id number] IMPRESSION: 1. Minimal degenerative changes at the hips. 2. Possible small sclerotic lesion in the left iliac wing. Possible subtle sclerotic lesion in intertrochanteric left femur. Recommend CT to further assess. 3. There is a structure in the visualized upper abdomen that may reflect a prominent loop of gas-filled colon.
[2021-05-24 13:47] LABS: 25 Hydroxy Vitamin D 40 ng/mL (30-100)
[2021-05-25 15:12] LABS: Cyclic Citrullinated Peptide 17 UNITS
== END 2021-05-24 12:50 | disposition home or self-care (01) ==
PROVIDERS: PCP Nurse Practitioner Family; Visit Provider Internal Medicine Rheumatology
DX: M19.90 Unspecified osteoarthritis, unspecified site (principal); Z79.899 Other long term (current) drug therapy; M19.041 Primary osteoarthritis, right hand; M79.89 Other specified soft tissue disorders; M77.32 Calcaneal spur, left foot; M20.11 Hallux valgus (acquired), right foot; M77.31 Calcaneal spur, right foot
CPT/HCPCS: 36415; 72100; 72170; 73130; 73630; 82306

== ENCOUNTER 2021-07-06 10:06 | Outpatient (CLI) | payer MEDICARE, MEDICAID, SELFPAY ==
--- NOTE | 2021-07-06 10:00 | CT_ITS ---
WS: [id number] CT LEFT HIP, NONCONTRAST. HISTORY: R93.89 - Abnormal findings on diagnostic imaging exam. Technique: All CT scans at [facility] use at least one of these dose optimization techniq ues: automated exposure control; mA and/or kV adjustment per patient size (includes targeted exams wh ere dose is matched to clinical indication); or iterative reconstruction. DLP: Was not submitted. COMPARISON: CT 12/21/2017, pelvis radiograph 05/24/2021. Long-term stability sclerotic 13 mm lesion in the LEFT ilium. Stable since at least 12/21/2017. No bon e or osseous destruction or cortical thinning. No sclerotic foci present in the proximal LEFT femur. Very mild narrowing of the LEFT hip joint. Mild enthesopathy at the greater trochanter. Mild atrophy of the muscles surrounding the LEFT hip. No effusion over the greater trochanter. Mild atrophic uterus. There are a few visualized sigmoid diverticula without diverticulitis. Moderate calcification noted in the femoral arteries at the level of the hip. CT/CT hip LT wo con* [id number] IMPRESSION: 1. Mild degenerative changes at the LEFT hip and enthesopathy at the greater t rochanter. 2. Long-term stability of a sclerotic focus in the LEFT ilium is probably a audi ne island. Noted additional sclerotic foci. 3. Vascular calcifications.
[2021-07-06 12:05] LABS: Lactate Dehydrogenase 192 U/L (135-214)
[2021-07-07 07:38] LABS: PROTEIN, TOTAL 6.8 g/dL (6.1-8.1)
[2021-07-07 16:29] LABS: ALBUMIN 3.8 g/dL (3.8-4.8); ALPHA 1 GLOBULIN 0.3 g/dL (0.2-0.3); BETA 1 GLOBULIN 0.4 g/dL (0.4-0.6); BETA 2 GLOBULIN 0.4 g/dL (0.2-0.5); GAMMA GLOBULIN 0.9 g/dL (0.8-1.7)
== END 2021-07-06 10:07 | disposition home or self-care (01) ==
PROVIDERS: PCP Nurse Practitioner Family; Visit Provider Internal Medicine Rheumatology
DX: R93.89 Abnormal findings on diagnostic imaging of other specified body structures (principal); C90.00 Multiple myeloma not having achieved remission
CPT/HCPCS: 36415; 73700; 83615; 84155; 84165; 84260

== ENCOUNTER → 2021-08-04 11:25 | Outpatient (BNVA) | payer MEDICARE, MEDICAID, SELFPAY | PROVIDERS: PCP Nurse Practitioner Family; Visit Provider Nurse Practitioner Family | DX: I10 Essential (primary) hypertension (principal); R60.0 Localized edema; E78.5 Hyperlipidemia, unspecified; E03.8 Other specified hypothyroidism; Z79.4 Long term (current) use of insulin; J30.89 Other allergic rhinitis; Z76.0 Encounter for issue of repeat prescription; I87.2 Venous insufficiency (chronic) (peripheral); R32 Unspecified urinary incontinence; B37.2 Candidiasis of skin and nail; K21.9 Gastro-esophageal reflux disease without esophagitis; E55.9 Vitamin D deficiency, unspecified; I65.23 Occlusion and stenosis of bilateral carotid arteries; E04.1 Nontoxic single thyroid nodule; N39.498 Other specified urinary incontinence; B37.3 Candidiasis of vulva and vagina; Z91.19 Patient's noncompliance with other medical treatment and regimen | CPT/HCPCS: 80053; 80061; 83036; 84443; 85025 ==

== ENCOUNTER 2021-09-22 08:05 | Observation (INO) | payer MEDICARE, MEDICAID, SELFPAY ==
[2021-09-22 08:05] VITALS: BP 138/52; PULSE 71; RESP 23; TEMP 36.5; O2SAT 97; BMI 34.9
--- NOTE | 2021-09-22 08:11 | CT_ITS ---
WS: [id number] CT HEAD NONCONTRAST HISTORY: new onset seizure TECHNIQUE: Contiguous axial imaging performed through the brain in 2.5 mm imaging. Bone and soft tiss ue windows. Sagittal and coronal reformats reviewed. All CT scans at [facility] use at least one of these dose optimization techniques: automated exposure control; mA and/or kV adjustment per pa tient size (includes targeted exams where dose is matched to clinical indication); or iterative recon struction. DLP: 782.39 mGy.cm COMPARISON: 12/03/2019 Remote infarct in the LEFT parietal lobe with an adjacent calcification. Volume loss at the site of t he infarct. There is additional atrophy involving the frontal and temporal lobes which is similar to the prior examination. No acute infarcts or loss of the navarrete-white matter differentiation. Mild chronic small vessel ischemi c disease. Ventricles: Normal size with no hydrocephalus. Paranasal sinuses: Mild mucoperiosteal thickening in the ethmoid air cells. No air-fluid levels. Mastoid air cells: Well pneumatized. Calvarium and scalp: Skull is intact with no soft tissue edema or swelling. Moderate atherosclerotic plaque within the carotid arteries. CT/CT head wo con* [id number] IMPRESSION: 1. No acute intracranial hemorrhage or edema. 2. Remote infarct with encephalomalacia LEFT frontal lobe. 3. Moderate bifrontotemporal lobe atrophy and chronic ischemic disease. No int erval change.
--- NOTE | 2021-09-22 08:11 | XR_ITS ---
WS: [id number] Exam: XR chest 1V portable [id number] Date/Time of Exam: 09/22/2021 8:14 AM Reason For Exam: dyspnea/cough Comparison 07/05/2020. Probable infiltrate in the left lower lobe and retrocardiac region. Right lung is clear. No pneumotho rax is seen. Cardiomediastinal structures are unremarkable for technique. Bony elements are intact. Recommendations: Follow-up PA and lateral chest x-ray in several days might be considered for ongoing evaluation. XR/XR chest 1V portable [id number] IMPRESSION: 1. Findings suspicious for mild infiltrate in the left lower lobe.
--- NOTE | 2021-09-22 08:12 | ECG_ITS ---
[facility] Test Date: 2021-09-22 Pat Name: Christina Julien Department: Room: Gender: Female Soft Crab Shedder: : 1940 Requested By: Redd Vo Order Number: [id number] Latoya MD: Shyam Bellamy M.D. Measurements Intervals Cyril Rate: 68 P: SC: QRS: 86 QRSD: 145 T: 28 QT: 416 QTc: 445 Interpretive Statements Junctional rhythm with frequent supra ventricular ectopics RIGHT BUNDLE BRANCH BLOCK [120+ ms QRS DURATION, UPRIGHT V1, 40+ ms S IN I/aVL/V4/V5/V6] CRITICAL TEST RESULT Compared to ECG 12/03/2019 02:13:59 Right bundle-branch block now present Ectopic atrial rhythm no longer present Electronically Signed On 09-22-2021 23:55:45 CDT by Shyam Bellamy M.D. [id number] f
[2021-09-22 08:38] LABS: Glucose Point of Care 402 mg/dL (70-110)
--- NOTE | 2021-09-22 09:01 | NUR.SHIFT ---
pts blood glucose; 402. Dr malhotra
--- NOTE | 2021-09-22 09:02 | W.ED.SEIZURE ---
HPI - Seizure General: Chief Complaint: Seizure Stated Complaint: BRADYCARDIA, SEIZURE LIKE ACITIVITY Time Seen by Provider: 09/22/21 08:05 History of Present Illness: HPI Narrative: 81-year-old female presents to the emergency room via EMS complaint was that she had a seizure. Initially patient was lethargic and somewhat bradycardic we later got history from family and confirmed by the patient occurred after she had been straining on the toilet. She has no known history of seizures in the past. On EMS arrival she was bradycardic well into the 30s and she was given atropine which improved her heart rate into the 60s and remained there until she arrived here. She has no history of any arrhythmias. On arrival here she is awake and alert. MD complaint: possible seizure Onset (ago): minute(s) Description of Episode: tonic-clonic movement Trauma: No Seizure History: No Place: Home Associated symptoms: Reports confusion; Deny chest pain, chills, cough, diaphoresis, fever(s), anorexia, malaise, rash, short of breath, syncope or weakness Treatments prior to arrival: none Review of Systems Const: Denies: fever(s), chills, malaise or diaphoresis ENMT: Denies: throat pain, ear or mastoid pain, nasal discharge or nasal congestion Card: Denies: chest pain or syncope Resp: Denies: dyspnea, productive cough or non-productive cough GI: Denies: abdominal pain, nausea, vomiting, hematemesis, coffee ground emesis, diarrhea, constipation, bloating, hematochezia or melena : Denies: flank pain, difficulty voiding, dysuria, urinary frequency or urinary urgency Skin/Breast: Denies: rash or pruritus Neuro: Reports: confusion PFSH ED PFSH: Medical History Adult onset hypothyroidism Asymptomatic bilateral carotid artery stenosis Chemical induced allergic contact dermatitis Chronic GERD Chronic low back pain Diabetes Dyslipidemia Enrolled in chronic care management Environmental and seasonal allergies Essential hypertension Hypothyroidism (acquired) Leg swelling Lower extremity edema Medication refill Noncompliance Osteoarthritis (arthritis due to wear and tear of joints) Polyarthralgia Thyroid nodule Vaginal candidiasis Venous stasis dermatitis Vitamin D deficiency Surgical History History of cholecystectomy Family History Other Cancer Diabetes Hypertension Lung disease Social History Second hand smoke exposure: No Smoking risk assessment/counseling performed?: No Alcohol intake: never Desire information about alcohol rehabilitation?: No Counseling given: No Desire information about substance/drug rehabilitation?: No Counseling given: No Adopted: No Caregiver/support person: No Lives independently: Yes Household members: children Housing: House Marital status: / Number of children: 4 service: No Current occupational status: retired History of recent travel: No Current gender identity: Female Physical Exam Const: COMMON NORMALS: no acute distress GENERAL APPEARANCE: cooperative and comfortable ORIENTATION/CONSCIOUSNESS: Yes awake, Yes oriented to person, Yes oriented to place and Yes oriented to time HENMT: COMMON NORMALS: normocephalic, atraumatic and hearing grossly normal bilaterally HEAD & SCALP: normocephalic and atraumatic Neck/C-Spine: COMMON NORMALS: no JVD Resp: COMMON NORMALS: normal respiratory effort, No retractions, No use of accessory muscles and clear to auscultation bilaterally AUSCULTATION: clear to auscultation bilaterally Cardio: COMMON NORMALS: no JVD, regular rate, regular rhythm and No murmurs present (Cardio) RATE: regular rate RHYTHM: regular rhythm GI: COMMON NORMALS: Soft to palpation and No hepatosplenomegaly present AUSCULTATION: Yes normoactive bowel sounds PALPATION: Yes Soft to palpation, No Tenderness to palpation present (GI), No Guarding due to palpation present (GI) and Yes No hepatosplenomegaly present Extremity: COMMON NORMALS: normal to inspection, capillary refill normal, no clubbing, cyanosis or edema, no calf tenderness and no pedal edema Neuro: SENSORIUM/ORIENTATION: Yes oriented to person, Yes oriented to place and Yes oriented to time Skin: COMMON NORMALS: no rashes or lesions noted GENERAL SKIN EXAM: no rashes or lesions noted Course Vital Signs: Vital signs: Vital Signs Temperature 97.6 F 09/22/21 11:06 Pulse Rate 53 L 09/22/21 11:06 Respiratory Rate 11 L 09/22/21 11:06 Blood Pressure 131/49 09/22/21 11:06 Pulse Oximetry 100 09/22/21 11:06 MDM - Seizure MDM Narrative: Medical decision making narrative: Patient had significant bradycardia. I do not think she had a seizure think she had a vasovagal episode and there is little bit concerning she required atropine she is on a very high dose of verapamil and notes anything the records stating she has a history of A. fib and neither her nor her granddaughter at the bedside recall ever being told she had that in the past. She does have a little subtle left-sided pneumonia. We will start her on some antibiotics discussion with Dr. Vasquez orders written. Lab Data: Labs: Lab Results 09/22/21 09/22/21 09/22/21 08:32 09:40 09:40 WBC 11.4 10^3/uL H 10 ^3/uL (4.0-10.0) RBC 4.29 10^6/uL 10^6 /uL (4.1-5.3) Hgb 12.9 g/dL g/dL (11.5-15.3) Hct 41.0 % % (37.0-47.0) MCV 95.6 fl fl (81-99) MCH 30.1 pg pg (28.0-34.0) MCHC 31.5 g/dL g/dL (30.0-36.0) RDW 14.1 % % (12.1-15.1) Plt Count 200 10^3/cmm 10^3 /cmm (130-400) MPV 11.2 fL H fL (7.4-10.4) Neut % (Auto) 80.5 % % Lymph % (Auto) 13.9 % % [place] % (Auto) 4.4 % % Eos % (Auto) 0.4 % % Baso % (Auto) 0.4 % % Neut # (Auto) 9.20 10^3/uL H 10 ^3/uL (1.8-7.7) Lymph # (Auto) 1.6 10^3/uL 10^3/ uL (0.8-4.8) [place] # (Auto) 0.5 10^3/uL 10^3/ uL (0.2-0.9) Eos # (Auto) 0.0 10^3/uL 10^3/ uL (0.0-0.8) Baso # (Auto) 0.0 10^3/uL 10^3/ uL (0.0-0.1) Nucleated RBC % (a uto) 0 % % Nucleated RBCs # 0.0 /100WBC /100W BC Sodium 131 mmol/L L mmol /L (136-145) Potassium 5.5 mmol/L H mmol /L (3.5-5.1) Chloride 97 mmol/L L mmol/ L (98-107) Carbon Dioxide 23 mmol/L mmol/L (22-29) Anion Gap 16.5 (5-19) BUN 38 mg/dL H mg/dL (8-23) Creatinine 1.6 mg/dL H mg/dL (0.5-0.9) GFR Calculation Not Reportable Glucose 366 mg/dL H mg/dL (65-115) POC Glucose 402 mg/dL H mg/dL (70-110) Calculated Osmolal ity 296 mOsm/kg H mOs m/kg (285-295) Lactic Acid Calcium 9.1 mg/dL mg/dL (8.5-10.5) Magnesium Total Bilirubin 0.3 mg/dL mg/dL (0.15-1.2) AST 25 U/L U/L (0-32) ALT 36 U/L H U/L (0-33) Alkaline Phosphata se 78 IU/L IU/L (35-105) Creatine Kinase 131 U/L U/L (26-192) Troponin T Baselin e Total Protein 7.1 g/dL g/dL (6.6-8.7) Albumin 4.0 g/dL g/dL (3.5-5.2) Globulin 3.1 g/dL g/dL (1.3-4.6) TSH Urine Color Urine Appearance Urine pH Ur Specific Gravit y Urine Protein Urine Glucose (UA) Urine Ketones Urine Blood Urine Nitrate Urine Bilirubin Urine Urobilinogen Ur Leukocyte Nevaeh ase 09/22/21 09/22/21 09/22/21 09:40 09:40 09:40 WBC RBC Hgb Hct MCV MCH MCHC RDW Plt Count MPV Neut % (Auto) Lymph % (Auto) [place] % (Auto) Eos % (Auto) Baso % (Auto) Neut # (Auto) Lymph # (Auto) [place] # (Auto) Eos # (Auto) Baso # (Auto) Nucleated RBC % (a uto) Nucleated RBCs # Sodium Potassium Chloride Carbon Dioxide Anion Gap BUN Creatinine GFR Calculation Glucose POC Glucose Calculated Osmolal ity Lactic Acid 2.5 mmol/L H mmol /L (0.5-2.2) Calcium Magnesium 2.0 mg/dL mg/dL (1.7-2.3) Total Bilirubin AST ALT Alkaline Phosphata se Creatine Kinase Troponin T Baselin e 19 ng/L H ng/L (0-10) Total Protein Albumin Globulin TSH 6.11 uIU/mL H uIU /mL (0.27-4.20) Urine Color Urine Appearance Urine pH Ur Specific Gravit y Urine Protein Urine Glucose (UA) Urine Ketones Urine Blood Urine Nitrate Urine Bilirubin Urine Urobilinogen Ur Leukocyte Nevaeh ase 09/22/21 10:01 WBC RBC Hgb Hct MCV MCH MCHC RDW Plt Count MPV Neut % (Auto) Lymph % (Auto) [place] % (Auto) Eos % (Auto) Baso % (Auto) Neut # (Auto) Lymph # (Auto) [place] # (Auto) Eos # (Auto) Baso # (Auto) Nucleated RBC % (a uto) Nucleated RBCs # Sodium Potassium Chloride Carbon Dioxide Anion Gap BUN Creatinine GFR Calculation Glucose POC Glucose Calculated Osmolal ity Lactic Acid Calcium Magnesium Total Bilirubin AST ALT Alkaline Phosphata se Creatine Kinase Troponin T Baselin e Total Protein Albumin Globulin TSH Urine Color Straw (Yellow) Urine Appearance Clear (CLEAR) Urine pH 5 (5-7) Ur Specific Gravit y 1.015 (1.005-1.030) Urine Protein Neg (Negative) Urine Glucose (UA) 4+ H (Normal) Urine Ketones Negative (Negative) Urine Blood Neg (Negative) Urine Nitrate Negative (Negative) Urine Bilirubin Neg (Negative) Urine Urobilinogen Norm mg/dL mg/dL (Negative) Ur Leukocyte Nevaeh ase Negative (Negative) Discharge Plan Discharge Patient Disposition: Admitted As Inpatient Clinical Impression: Bradycardia, Community acquired pneumonia, Vasovagal episode Condition: Stable Coding Level of Care Code ED [employer] Supervisor for Cheryle Fwd Exam Comprehensive
--- NOTE | 2021-09-22 09:06 | CT_ITS ---
WS: [id number] CT ABDOMEN AND PELVIS WITH CONTRAST HISTORY: abd pain TECHNIQUE: Imaging performed of the abdomen and pelvis with IV contrast. Single phase imaging of the abdomen. Coronal and sagittal reformats are submitted. All CT scans at [facility] use at [facility] [facility] one of these dose optimization techniques: automated exposure control; mA and/or kV adjustment per patient size (includes targeted exams where dose is matched to clinical indication); or iterative re construction. IV CONTRAST: Visipaque 320; 95 mL IV. Oral contrast: No DLP: 1575.31 mGy.cm COMPARISON: 12/21/2017 Lower thorax: Dependent changes at the lung bases. Mild enlargement the heart chambers. Calcification along the mitral annular valve plane. Small hiatal hernia. Liver/biliary system: Normal size with no intrahepatic dilatation. Gallbladder: Normal. No gallstones or wall thickening. No pericholecystic fluid. Pancreas: Mild atrophy of the pancreas. Spleen: Splenic granulomata. Normal size. Adrenal glands: Normal. Right kidney: Normal. Left kidney: Normal. Aorta: Moderate atherosclerosis with no aneurysm. Lymphadenopathy: None. Free fluid: None. GI tract: The appendix is not visualized with certainty. No GI tract obstruction or mucosal inflammat ion. There are a few scattered diverticula in the sigmoid. Abdominal wall: Unremarkable abdominal wall. No hernia. Pelvis: Uterus remains present. No adnexal masses or free fluid. Urinary bladder is negative. Bones: 4 mm anterolisthesis of L5. CT/CT abdomen pelvis w con* [id number] IMPRESSION: 1. No acute abdominal or pelvic abnormalities are identified. 2. No GI tract obstruction or colitis. 3. Moderate atherosclerosis aorta. 4. Gallbladder is absent.
[2021-09-22 09:30] VITALS: BP 122/34; PULSE 74; RESP 18; TEMP 36.5; O2SAT 92
[2021-09-22 09:51] LABS: Basophils % 0.4 %; Eosinophils % 0.4 %; Hemoglobin 12.9 g/dL (11.5-15.3); Lymphocytes # 1.6 10^3/uL (0.8-4.8); Lymphocytes % 13.9 %; Mean Corpuscular HGB Conc 31.5 g/dL (30.0-36.0); Mean Corpuscular Hemoglobin 30.1 pg (28.0-34.0); Mean Corpuscular Volume 95.6 fl (81-99); Mean Platelet Volume 11.2 fL (7.4-10.4); Monocytes # 0.5 10^3/uL (0.2-0.9); Monocytes % 4.4 %; Neutrophils % 80.5 %; Nucleated Red Blood Cells % 0 %; Platelet Count 200 10^3/cmm (130-400); Red Blood Count 4.29 10^6/uL (4.1-5.3); Red Cell Distribution Width 14.1 % (12.1-15.1); White Blood Count 11.4 10^3/uL (4.0-10.0)
[2021-09-22 10:09] LABS: Add Urine Microscopic? NO; Charge for UA Resulting for Rev
[2021-09-22 10:11] LABS: Alanine Aminotransferase 36 U/L (0-33); Alkaline Phosphatase 78 IU/L (35-105); Anion Gap 16.5 (5-19); Aspartate Amino Transferase 25 U/L (0-32); Blood Urea Nitrogen 38 mg/dL (8-23); Calcium 9.1 mg/dL (8.5-10.5); Carbon Dioxide 23 mmol/L (22-29); Chloride 97 mmol/L (98-107); Creatine Phosphokinase 131 U/L (26-192); Globulin 3.1 g/dL (1.3-4.6); Glucose 366 mg/dL (65-115); Osmolality Calculated 296 mOsm/kg (285-295); Potassium 5.5 mmol/L (3.5-5.1); Sodium 131 mmol/L (136-145); Total Bilirubin 0.3 mg/dL (0.15-1.2); Total Protein 7.1 g/dL (6.6-8.7)
[2021-09-22 10:12] LABS: Lactic Sepsis W/Reflex 2.5 mmol/L (0.5-2.2); Troponin(5th) Baseline 19 ng/L (0-10)
--- NOTE | 2021-09-22 10:12 | ECG_ITS ---
[facility] Test Date: 2021-09-22 Pat Name: Christina Julien Department: Room: Gender: Female Taker Off Hemp Fiber: : 1940 Requested By: Redd Vo Order Number: [id number] Latoya MD: Shyam Bellamy M.D. Measurements Intervals Ayden Rate: 53 P: -83 LA: 133 QRS: 71 QRSD: 99 T: 62 QT: 451 QTc: 426 Interpretive Statements Ectopic atrial rhythm SEPTAL MYOCARDIAL INFARCTION , PROBABLY OLD [40+ ms Q WAVE IN V1/V2] Compared to ECG 09/22/2021 08:18:20 Myocardial infarct finding now present Sinus rhythm no longer present Right bundle-branch block no longer present Electronically Signed On 09-22-2021 23:59:36 CDT by Shyam Bellamy M.D. [id number]
[2021-09-22 10:24] LABS: Blood Urine Neg (Negative); Ketones Urine Negative (Negative); Nitrate Urine Negative (Negative); Protein Urine Neg (Negative); Specific Gravity, Urine 1.015 (1.005-1.030); Urine Appearance Clear (CLEAR); Urine Color Straw (Yellow); pH Urine 5 (5-7)
[2021-09-22 10:25] LABS: Bilirubin Urine Neg (Negative); Glucose Urine UA 4+ (Normal); Leukocyte Esterase Urine Negative (Negative); Urobilinogen Urine Norm (Negative)
[2021-09-22] MEDS: iodixanol 320 mg/mL 100mL Btl IV (10:33)
[2021-09-22] MEDS: levofloxacin-dextrose 5 % 750 MG/150 ML PREMIX 100 MG IV (11:03)
[2021-09-22] MEDS: sodium chloride 0.9% 1,000 ML 999 ML IV (11:04)
[2021-09-22 11:06] VITALS: BP 131/49; PULSE 53; RESP 11; TEMP 36.4; O2SAT 100
[2021-09-22 11:33] LABS: Reflex Lactate Order REFLEX LACTIC ORDERD
[2021-09-22 11:36] LABS: Thyroid Stimulating Hormone 6.11 uIU/mL (0.27-4.20)
--- NOTE | 2021-09-22 12:02 | PM.HP ---
Providers/Chief Complaint Primary Care Provider: VERONICA Ram Chief Complaint: BRADYCARDIA, SEIZURE LIKE ACITIVITY History of Present Illness Christina Julien is a 81 year old female who presented to the emergency department with an event at home. Apparently she was on the toilet, straining when she became lethargic, had decreased responsiveness, and apparently had some shaking. Exact events are not able to be confirmed at this point. When EMS arrived heart rate was in the 30s, likely atrial fibrillation with right bundle branch block. She received atropine with increase of her heart rate into the 60s. Patient reports no prior history of atrial fibrillation. Her only rate limiting medication is verapamil. She reports she does not have a history of a seizure disorder. She admits to feeling lightheaded prior to the event. Family is present with her currently and reports that she is back to her baseline mental status. She denies any chest discomfort currently. No fever. Has had a mild cold lately. Not short of breath. Not vaccinated for Covid. Review of Systems General: Reports: 10 or more systems reviewed and unremarkable except in HPI and below Const: Denies: fever(s) Eyes: Denies: change in vision ENMT: Denies: throat pain Card: Reports: lightheadedness; Denies: chest pain Resp: Denies: dyspnea GI: Reports: constipation; Denies: abdominal pain : Denies: flank pain Musc: Denies: neck pain Skin/Breast: Denies: rash Neuro: Denies: headache(s) Psych: Denies: anxiety Endo: Denies: polyuria Emre/Lymph: Denies: easy bruising All/Imm: Denies: urticaria Medications/Allergies Home Medications Medication Instructions Recorded Confirmed Last Taken Type lutein 10 mg tablet 10 mg PO DAILY 02/20/20 09/06/21 Unknown History nystatin 100,000 unit/gram topical 1 applic TOPICAL TID 30 Days #60 g 02/09/21 09/06/21 Unknown Rx powder Diabetic shoes with 3 inserts #1 ea 04/12/21 09/06/21 Unknown Rx Diabetic shoes #1 ea 05/06/21 09/06/21 Unknown Rx betamethasone dipropionate 0.05 % 1 applic TOPICAL BID #45 g 05/25/21 09/06/21 Unknown Rx topical cream ascorbic acid (vitamin C) 1,000 mg 500 mg PO DAILY 30 Days #30 tab 08/04/21 09/06/21 Unknown Rx tablet atorvastatin 40 mg tablet 40 mg PO DAILY 30 Days #30 tab 08/04/21 09/06/21 Unknown Rx calcium carbonate 600 mg (1,500 1 cap PO DAILY 30 Days #30 cap 08/04/21 09/06/21 Unknown Rx mg)-vitamin D3 500 unit capsule cetirizine 10 mg tablet 10 mg PO DAILY 30 Days #30 tab 08/04/21 09/06/21 Unknown Rx famotidine 20 mg tablet 20 mg PO BID 30 Days #60 tab 08/04/21 09/06/21 Unknown Rx fluticasone propionate 50 2 spray INTRANASAL DAILY 30 Days 08/04/21 09/06/21 Unknown Rx mcg/actuation nasal #9.9 ml spray,suspension furosemide 20 mg tablet 20 mg PO BID 30 Days #60 tab 08/04/21 09/06/21 Unknown Rx guaifenesin 600 mg tablet, 600 mg PO Q12H PRN 30 Days #60 tab 08/04/21 09/06/21 Unknown Rx extended release 12 hr insulin aspart U-100 100 unit/mL See Rx Instructions SUBCUT TID 30 08/04/21 09/06/21 Unknown Rx subcutaneous cartridge Days #15 ml insulin detemir U-100 100 unit/mL 40 unit SUBCUT BID 30 Days #24 ml 08/04/21 09/06/21 Unknown Rx (3 mL) subcutaneous pen ketoconazole 2 % topical cream 1 applic TOPICAL BID 14 Days #60 g 08/04/21 09/06/21 Unknown Rx levothyroxine 75 mcg capsule 75 mcg PO DAILY 30 Days #30 cap 08/04/21 09/06/21 Unknown Rx lisinopril 20 mg tablet 20 mg PO BID 30 Days #60 tab 08/04/21 09/06/21 Unknown Rx omega-3 fatty acids 1,000 mg 1,000 mg PO DAILY 30 Days #30 cap 08/04/21 09/06/21 Unknown Rx capsule oxybutynin chloride 15 mg 15 mg PO DAILY 30 Days #30 tab 08/04/21 09/06/21 Unknown Rx tablet,extended release 24 hr triamcinolone acetonide 0.1 % 1 applic TOPICAL DAILY 30 Days #80 08/04/21 09/06/21 Unknown Rx topical cream gm verapamil 360 mg 24 hr 360 mg PO QAM 30 Days #30 cap 08/04/21 09/06/21 Unknown Rx capsule,extended release ergocalciferol (vitamin D2) 50,000 unit PO Q7D 09/22/21 09/22/21 09/15/21 History potassium chloride 20 meq PO DAILY 09/22/21 09/22/21 09/21/21 History Allergies Allergy/AdvReac Type Severity Reaction Status Date / Time clindamycin Allergy ALGY-Rash Verified 08/17/21 10:33 Penicillins Allergy ALGY-Rash Verified 08/17/21 10:33 Sulfa (Sulfonamide Allergy ALGY-Swell Verified 08/17/21 10:33 Antibiotics) Lip/Tongue/Throat tetracycline Allergy ALGY-Swell Verified 08/17/21 10:33 Lip/Tongue/Throat PFSH Acute PFSH: Medical History (Updated 09/22/21 @ 12:11 by Ismael Vasquez MD) Adult onset hypothyroidism Asymptomatic bilateral carotid artery stenosis Chemical induced allergic contact dermatitis Chronic GERD Chronic low back pain Diabetes Dyslipidemia Enrolled in chronic care management Environmental and seasonal allergies Essential hypertension Hypothyroidism (acquired) Leg swelling Lower extremity edema Medication refill Noncompliance Osteoarthritis (arthritis due to wear and tear of joints) Polyarthralgia Thyroid nodule Vaginal candidiasis Venous stasis dermatitis Vitamin D deficiency Surgical History (Updated 09/22/21 @ 12:05 by Ismael Vasquez MD) H/O thyroidectomy History of cholecystectomy Family History Other Cancer Diabetes Hypertension Lung disease Social History Second hand smoke exposure: No Smoking risk assessment/counseling performed?: No Alcohol intake: never Desire information about alcohol rehabilitation?: No Counseling given: No Desire information about substance/drug rehabilitation?: No Counseling given: No Adopted: No Caregiver/support person: No Lives independently: Yes Household members: children Housing: House Marital status: / Number of children: 4 service: No Current occupational status: retired History of recent travel: No Current gender identity: Female Vitals/I&O/Wt Last Vital Signs Temp 97.6 F 09/22/21 11:06 Pulse 53 L 09/22/21 11:06 Resp 11 L 09/22/21 11:06 BP 131/49 09/22/21 11:06 Pulse Ox 100 09/22/21 11:06 Weight last 48 hrs Weight 81.193 kg Physical Exam Narrative: EXAM NARRATIVE: General exam is a conversant female in no apparent distress HEENT: Pupils equally round. Oropharynx clear. Neck is supple no lymphadenopathy thyromegaly Cardiovascular regular rate and rhythm with 2/6 systolic murmur Lungs clear Abdomen is soft, obese, nontender exam is deferred Extremities no cyanosis clubbing or edema, cap refill brisk Skin no rash Neuro no focal deficits. Data : 09/22/21 09:40 09/22/21 09:40 Micro: Microbiology 09/22/21 09:42 Blood Culture - Preliminary Blood SPECIMEN COLLECTED 09/22/21 09:40 Blood Culture - Preliminary Blood SPECIMEN COLLECTED Other data: Lactic acid elevated at 2.5 LFTs normal with exception of ALT of 36 Troponin baseline 19 with repeat pending TSH 6.1 Urinalysis negative Strips from ambulance demonstrate intraventricular conduction delay, no definable PEs, rate in the 30s. After atropine this is a right bundle with rate in the 60s. Perhaps atrial fibrillation or junctional. 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 However significant arrhythmia, and bradycardia noted during the event. Verapamil may have augmented this. Observation Telemetry Cardiology consultation Hydration Echocardiogram Check magnesium level Repeat potassium level in the morning Status: Acute (2) Bradycardia: See above Continue telemetry monitoring Discontinue verapamil Serial troponins Status: Acute (3) Community acquired pneumonia: Continue Levaquin initiated in the emergency department Status: Acute (4) Diabetes: Sliding scale insulin Status: Chronic Qualifiers: Diabetes mellitus type: type 2 Diabetes mellitus half-way insulin use: with half-way use Diabetes mellitus complication status: with other specified complication Qualified Code(s): E11.69 - Type 2 diabetes mellitus with other specified complication; 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 Hydration Mild hyperkalemia. Hold HUY inhibitor. Hold potassium. Hypertension. Hold ARB. Hold verapamil. Will likely need initiation of new regimen starting tomorrow hyperlipidemia. Continue statin Hypothyroidism. 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
[2021-09-22 12:08] LABS: Troponin 5 2HR 16.96 ng/L (0-10)
--- NOTE | 2021-09-22 12:15 | USCV_ITS ---
Christina Julien Age: 81 Gender: F : 1940 Exam Date: 09/22/2021 12:30 Ordering Phys: Ismael Vasquez MD Technologist: CORBY [place] [facility] [place]: [place] BP: 154 / 55 HR: 58 Rhythm: Sinus Technical Quality: Suboptimal MEASUREMENTS (Male / Female) Normal Values 2D ECHO LV Diastolic Diameter PLAX 4.3 cm 4.2 - 5.9 / 3.9 - 5.3 cm LV Systolic Diameter PLAX 3.2 cm IVS Diastolic Thickness 1.3 cm 0.6 - 1.0 / 0.6 - 0.9 cm IVS Systolic Thickness 1.9 cm LVPW Diastolic Thickness 1.0 cm 0.6 - 1.0 / 0.6 - 0.9 cm LVPW Systolic Thickness 1.6 cm LVOT Diameter 2.0 cm LV Ejection Fraction 2D Teich 51.7 % LV Ejection Fraction MOD 2C 62.9 % LV Ejection Fraction 2C AL 62.4 % LA Diameter 2.7 cm LA Width 2.4 cm RA Height 3.3 cm Aorta at Sinotubular Diameter 2.3 cm DOPPLER AV Peak Velocity 114.0 cm/s LVOT Peak Velocity 90.0 cm/s AV Area Cont Eq vti 2.5 cm squared AV Area Cont Eq pk 2.6 cm squared MV Area PHT 4.0 cm squared Mitral E to A Ratio 0.9 MV E' Velocity 54.5 cm/s Mitral E to MV E' Ratio 14.8 Mitral E to LV E' Lateral Ratio 14.8 Mitral E to LV E' Septal Ratio 15.0 TR Peak Velocity 330.7 cm/s TR Peak Gradient 43.7 mmHg TV Peak E Velocity 60.0 cm/s Right Atrial Pressure 3.0 mmHg Pulmonary Artery Systolic Pressu 46.7 mmHg PV Peak Velocity 125.0 cm/s RV Acceleration Time 0.1 s RV Ejection Time 0.4 s RV AcT/ET 0.2 FINDINGS Left Ventricle Normal left ventricular cavity size. Mildly increased left ventricular wall thickness. Normal left ventricular systolic function. Left ventricular ejection fraction is estimated at 60 %. No diagnostic regional wall motion abnormality based on this study. Grade II diastolic dysfunction, moderately elevated filling pressures. Right Ventricle Normal right ventricular size and systolic function. Right Atrium Right atrium not well visualized. Right atrial pressure estimated at 3 mmHg. Left Atrium Mildly increased left atrial size. Mitral Valve Mild mitral annular calcification. Thickened mitral valve. No mitral valve stenosis. Trace mitral valve regurgitation. Aortic Valve Structurally normal trileaflet aortic valve. No aortic valve stenosis. No aortic valve regurgitation. Tricuspid Valve Structurally normal tricuspid valve. No tricuspid valve stenosis. Trace tricuspid valve regurgitation. Pulmonic Valve Pulmonic valve not well visualized. No pulmonary valve stenosis. No significant pulmonary valve regurgitation. Pericardium No pericardial effusion. Aorta Normal size aortic root and proximal ascending aorta. Normal- sized inferior vena cava. CONCLUSIONS 1. This is a technically difficult study. 2. Normal left ventricular cavity size and systolic function. Mildly increased left ventricular wall thickness. Left ventricular ejection fraction is estimated at 60 %. No diagnostic regional wall motion abnormality based on this study. Grade II diastolic dysfunction, moderately elevated filling pressures. 3. Normal right ventricular size and systolic function. Devi Ragland MD (Electronically Signed) Final Date: 22 September 2021 17:21 S
[2021-09-22 12:17] LABS: Troponin 5 2HR Delta -2.04 ABS# (0-10)
--- NOTE | 2021-09-22 14:12 | ECG_ITS ---
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 Measurements Intervals [place] Rate: 60 P: 264 KS: 123 QRS: 73 QRSD: 113 T: 61 QT: 465 QTc: 465 Interpretive Statements Ectopic atrial rhythm MODERATE INTRAVENTRICULAR CONDUCTION DELAY [110+ ms QRS DURATION] ABNORMAL RHYTHM ECG Compared to ECG 09/22/2021 10:56:29 Intraventricular conduction delay now present Myocardial infarct finding no longer present Electronically Signed On 09-23-2021 0:01:39 CDT by Shyam Bellamy M.D. [id number]
[2021-09-22 15:03] LABS: Glucose Point of Care 233 mg/dL (70-110)
--- NOTE | 2021-09-22 15:03 | PC.NURSE ---
pt requesting a recheck on her blood glucose, blood glucose rechecked; 233. Dr. Root updated.
--- NOTE | 2021-09-22 16:19 | PC.NURSE ---
This RN called floor to give report, CONNIE Clay not available to take report, will return call as soon as possible
--- NOTE | 2021-09-22 16:44 | P.CONIM_ITS ---
Providers/Reason For Consult Consulting Physician/Specialty*: Dr. Ragland, cardiology Reason for Consult*: Bradycardia, syncope Attending Physician: Ismael Vasquez MD Primary Care Provider: VERONICA Ram History of Present Illness History of Present Illness Christina Julien is a 81 year old female with past medical history of hypertension, dyslipidemia, insulin-dependent diabetes mellitus, chronic leg swelling, hypothyroidism, carotid artery stenosis s/p left carotid endarterectomy presented for evaluation of syncope. She was in bathroom straining and became lethargic and had passing out episodes for few seconds to minutes. There was possibly some shaking of her head/ left arm involved. Patient is a poor historian. EKG on arrival showed junctional rhythm with competing ectopic atrial rhyhm. RBBB like morphology . Follow-up EKG with ectopic atrial bradycardia at 53 bpm. 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 No chest pain, ESTRELLA, dizziness or syncope since then. No URI/UTI like symptoms. No fever/chills. Review of Systems General: Reports: 10 or more systems reviewed and unremarkable except in HPI and below Const: Denies: fever(s) Eyes: Denies: change in vision ENMT: Denies: throat pain Card: Reports: lightheadedness; Denies: chest pain, irregular heart rhythm, edema or dyspnea on exertion Resp: Denies: dyspnea, productive cough or non-productive cough GI: Reports: constipation; Denies: abdominal pain : Denies: flank pain Musc: Denies: neck pain Skin/Breast: Denies: rash Neuro: Denies: headache(s) Psych: Denies: anxiety Endo: Denies: polyuria Emre/Lymph: Denies: easy bruising, petechiae or purpura All/Imm: Denies: urticaria Meds/Allergies Home Medications and Allergies Home Medications Medication Instructions Recorded Confirmed Last Taken Type lutein 10 mg tablet 10 mg PO DAILY 02/20/20 09/22/21 09/21/21 History nystatin 100,000 unit/gram topical 1 applic TOPICAL TID 30 Days #60 g 02/09/21 09/22/21 09/21/21 Rx powder Diabetic shoes with 3 inserts #1 ea 04/12/21 09/22/21 Unknown Rx Diabetic shoes #1 ea 05/06/21 09/22/21 Unknown Rx betamethasone dipropionate 0.05 % 1 applic TOPICAL BID #45 g 05/25/21 09/22/21 Unknown Rx topical cream ascorbic acid (vitamin C) 1,000 mg 500 mg PO DAILY 30 Days #30 tab 08/04/21 09/22/21 09/21/21 Rx tablet atorvastatin 40 mg tablet 40 mg PO DAILY 30 Days #30 tab 08/04/21 09/22/21 09/21/21 Rx calcium carbonate 600 mg (1,500 1 cap PO DAILY 30 Days #30 cap 08/04/21 09/22/21 09/21/21 Rx mg)-vitamin D3 500 unit capsule cetirizine 10 mg tablet 10 mg PO DAILY 30 Days #30 tab 08/04/21 09/22/21 09/21/21 Rx famotidine 20 mg tablet 20 mg PO BID 30 Days #60 tab 08/04/21 09/22/21 09/21/21 Rx fluticasone propionate 50 2 spray INTRANASAL DAILY 30 Days 08/04/21 09/22/21 09/21/21 Rx mcg/actuation nasal #9.9 ml spray,suspension furosemide 20 mg tablet 20 mg PO BID 30 Days #60 tab 08/04/21 09/22/21 09/22/21 Rx guaifenesin 600 mg tablet, 600 mg PO Q12H PRN 30 Days #60 tab 08/04/21 09/22/21 Unknown Rx extended release 12 hr insulin aspart U-100 100 unit/mL See Rx Instructions SUBCUT TID 30 08/04/21 09/22/21 Unknown Rx subcutaneous cartridge Days #15 ml insulin detemir U-100 100 unit/mL 40 unit SUBCUT BID 30 Days #24 ml 08/04/21 09/22/21 09/21/21 Rx (3 mL) subcutaneous pen ketoconazole 2 % topical cream 1 applic TOPICAL BID 14 Days #60 g 08/04/21 09/22/21 09/21/21 Rx levothyroxine 75 mcg capsule 75 mcg PO DAILY 30 Days #30 cap 08/04/21 09/22/21 09/21/21 Rx lisinopril 20 mg tablet 20 mg PO BID 30 Days #60 tab 08/04/21 09/22/21 09/21/21 Rx omega-3 fatty acids 1,000 mg 1,000 mg PO DAILY 30 Days #30 cap 08/04/21 09/22/21 09/21/21 Rx capsule oxybutynin chloride 15 mg 15 mg PO DAILY 30 Days #30 tab 08/04/21 09/22/21 09/21/21 Rx tablet,extended release 24 hr triamcinolone acetonide 0.1 % 1 applic TOPICAL DAILY 30 Days #80 08/04/21 09/22/21 Unknown Rx topical cream gm verapamil 360 mg 24 hr 360 mg PO QAM 30 Days #30 cap 08/04/21 09/22/21 09/21/21 Rx capsule,extended release ergocalciferol (vitamin D2) 50,000 unit PO Q7D 09/22/21 09/22/21 09/15/21 History potassium chloride 20 meq PO DAILY 09/22/21 09/22/21 09/21/21 History Allergies Allergy/AdvReac Type Severity Reaction Status Date / Time clindamycin Allergy ALGY-Rash Verified 08/17/21 10:33 Penicillins Allergy ALGY-Rash Verified 08/17/21 10:33 Sulfa (Sulfonamide Allergy ALGY-Swell Verified 08/17/21 10:33 Antibiotics) Lip/Tongue/Throat tetracycline Allergy ALGY-Swell Verified 08/17/21 10:33 Lip/Tongue/Throat PFSH Acute PFSH: Medical History Adult onset hypothyroidism Asymptomatic bilateral carotid artery stenosis Chemical induced allergic contact dermatitis Chronic GERD Chronic low back pain Diabetes Dyslipidemia Enrolled in chronic care management Environmental and seasonal allergies Essential hypertension Hypothyroidism (acquired) Leg swelling Lower extremity edema Medication refill Noncompliance Osteoarthritis (arthritis due to wear and tear of joints) Polyarthralgia Thyroid nodule Vaginal candidiasis Venous stasis dermatitis Vitamin D deficiency Surgical History H/O thyroidectomy History of cholecystectomy Family History Other Cancer Diabetes Hypertension Lung disease Social History Second hand smoke exposure: No Smoking risk assessment/counseling performed?: No Alcohol intake: never Desire information about alcohol rehabilitation?: No Counseling given: No Desire information about substance/drug rehabilitation?: No Counseling given: No Adopted: No Caregiver/support person: No Lives independently: Yes Household members: children Housing: House Marital status: / Number of children: 4 service: No Current occupational status: retired History of recent travel: No Current gender identity: Female Vitals/I&O/Wt Last Vital Signs Temp 97.6 F 09/22/21 11:06 Pulse 53 L 09/22/21 11:06 Resp 11 L 09/22/21 11:06 BP 131/49 09/22/21 11:06 Pulse Ox 100 09/22/21 11:06 Weight last 48 hrs Weight 179 lb Physical Exam Narrative: EXAM NARRATIVE: GENERAL: obese woman laying in bed in no acute distress HEENT: Pupils equal round reactive to light. No pallor or icterus. NECK: NoJVD, No carotid bruit. CARDIOVASCULAR SYSTEM: S1-S2 regular. No murmur rubs or gallops. RESPIRATORY SYSTEM: Chest clear to auscultation. No wheezes rhonchi or rubs heard. No use of accessory muscles. ABDOMEN: Soft, nontender and nondistended. Normal bowel sounds present. EXTREMITIES: No cyanosis or edema. No signs of chronic venous insufficiency. SEMICONDUCTOR BONDER: Patient is alert oriented ?3. No focal neurological deficits. SKIN: Normal turgor and temperature. Data Micro: Micro: Microbiology 09/22/21 09:42 Blood Culture - Pr eliminary Blood [facility] 09/22/21 09:40 Blood Culture - Pr eliminary Blood [facility] Other Data: Other data: Transthoracic echocardiogram 14 September 2021 CONCLUSIONS 1. This is a technically difficult study. 2. Normal left ventricular cavity size and systolic function. Mildly increased left ventricular wall thickness. Left ventricular ejection fraction is estimated at 60 %. No diagnostic regional wall motion abnormality based on this study. Grade II diastolic dysfunction, moderately elevated filling pressures. 3. Normal right ventricular size and systolic function LEXISCAN SPECT CARDIAC STRESS TEST ([id number]) 03/07/2019 1. No significant EKG changes with the LexiScan infusion 2. No LexiScan induced chest pain or cardiac arrhythmia 3. Normal blood pressure and heart rate response #1. Myocardial perfusion imaging revealing a small to moderate area of reversible defect in the mid inferolateral, apical lateral and LV apex, suggestive of myocardial ischemia in the distribution of the left circumflex artery. #2. Normal LV ejection fraction of 89%. #3. LV wall motion analysis revealing no gross wall motion abnormalities. #4. Normal LV volume. Echocardiogram 08/20/2018 Possibly normal LV size and ejection fraction of around 55%. Segmental wall motion analysis is difficult. No gross abnormalities noted Grade I/IV diastolic dysfunction (abnormal relaxation filling pattern), normal to mildly elevated filling pressures. Thickened aortic and mitral valves. Moderate mitral annular calcification. There is no pericardial effusion. There are no intracardiac masses. Mildly dilated right ventricle with normal ejection fraction Some features of right ventricular hypertrophy. The PA pressure could not be cannulated because of the poor Doppler signals . Technically difficult study because of the poor ultrasonic window. Coronary angiogram (03/2019) No significant disease noted in the Left Main, LAD, Circumflex, or RCAcoronary arteries. The left anterior escending artery and the circumflex artery was found to be tortuous. There are medium to large caliber vessels. Mild diffuse intimal irregularities were noted. No significant stenotic lesions. The right coronary artery is a nondominant, small caliber vessel with a high and posterior takeoff. Minimal intimal irregularities are noted throughout the vessel. No significant as stenotic lesions. Mild diffuse coronary calcification was noted in the other vessels. Coronary angiography shows left dominance. Chest x-ray 14 September 2021: Findings suspicious for mild infiltrate of left lower lobe. Carotid duplex 31 May 2020 CONCLUSIONS Moderate to heavy heterogeneous plaques at the right bifurcation and proximal internal carotid arterywith velocity elevation consistent with 50-79% stenosis. Mild to moderate plaques at the left bifurcation and proximal internal carotid arterywith velocity elevation consistent with 16-49% stenosis. Made to the study from 08/20/2018, there is progression of disease bilaterally A&P Assessment and plan (1) Syncope: Likley vasovagal. Baseline troponin T 19 at 2 hours 17 and at 6 hours 16.7. On verapamil at home. continue to hold. -HR running 50's-70's -continue to monitor closely on telemetry. Status: Acute (2) Bradycardia: Ectopic atrial rhythm on old EKG and on telemetry now. Status: Acute (3) Essential hypertension: Status: Chronic (4) Diabetes: Status: Chronic Qualifiers: Diabetes mellitus complication status: with other specified complication Diabetes mellitus terminal makeup operator insulin use: with terminal makeup operator use Diabetes mellitus type: type 2 Qualified Code(s): E11.69 - Type 2 diabetes mellitus with other specified complication; Z79.4 - intermediate manager (current) use of insulin Additional A&P Information Hyperkalemia IRENA (creatinine 04 August 2021 1.1 and 0.6 back in April) Dyslipidemia Obesity Carotid artery stenosis Hypothyroidism: TSH 6.1 History of 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 No acute intracranial hemorrhage or edema. Consult Attestations Time Spent in Patient Care: 16 - 35 minutes (>than 50% of time spent in counselling and/or direct pt care on unit) . Coding Level of Care Code Acute Wood Room Hand for [facility] Fwd Diagnoses Syncope R55 Bradycardia R00.1 Essential hypertension I10 Diabetes E11.69; Z79.4 Diabetes mellitus complication status: with other specified complication Diabetes mellitus terminal makeup operator insulin use: with terminal makeup operator use Diabetes mellitus type: type 2
--- NOTE | 2021-09-22 16:52 | PC.NURSE ---
Report called to floor, given to CONNIE Clay.
[2021-09-22 17:21] LABS: Lactic Acid level (Lactate) 1.4 mmol/L (0.5-2.2)
[2021-09-22 17:23] LABS: Troponin 5 6HR 16.73 ng/L (0-10)
[2021-09-22 17:29] LABS: Troponin 5 6HR Delta -2.27 ng/L (0-12)
[2021-09-22 18:08] VITALS: PULSE 63; O2SAT 100
[2021-09-22] MEDS: sodium chloride 0.9% 1,000 ML 75 ML IV (18:10)
[2021-09-22] MEDS: heparin 5,000 unit/mL INJ 1 mL 5000 UNIT SUBCUT (18:10)
[2021-09-22] MEDS: famotidine 20 mg Tablet PO (18:10)
[2021-09-22] MEDS: insulin lispro 100 unit/1 mL SUBCUT (18:39)
[2021-09-22 18:44] LABS: Glucose Point of Care 171 mg/dL (70-110)
[2021-09-22 18:46] VITALS: BP 141/53; PULSE 57; RESP 16; TEMP 36.4; O2SAT 99
[2021-09-22 20:05] LABS: Glucose Point of Care 133 mg/dL (70-110)
[2021-09-22] MEDS: insulin glargine 100 units/1 mL 30 UNIT SUBCUT (20:50)
[2021-09-22 22:00] VITALS: PULSE 63
[2021-09-23 00:09] VITALS: BP 108/25; PULSE 60; RESP 14; O2SAT 97
[2021-09-23 03:46] VITALS: BP 138/55; PULSE 69; RESP 15; TEMP 36.6; O2SAT 100
[2021-09-23 04:03] LABS: Basophils # 0.1 10^3/uL (0.0-0.1); Basophils % 0.7 %; Eosinophils # 0.3 10^3/uL (0.0-0.8); Eosinophils % 3.2 %; Hematocrit 37.6 % (37.0-47.0); Hemoglobin 11.8 g/dL (11.5-15.3); Lymphocytes # 2.9 10^3/uL (0.8-4.8); Mean Corpuscular HGB Conc 31.4 g/dL (30.0-36.0); Mean Corpuscular Hemoglobin 29.4 pg (28.0-34.0); Mean Corpuscular Volume 93.5 fl (81-99); Mean Platelet Volume 10.7 fL (7.4-10.4); Monocytes # 0.6 10^3/uL (0.2-0.9); Monocytes % 6.7 %; Neutrophils # 4.53 10^3/uL (1.8-7.7); Neutrophils % 54.2 %; Nucleated Red Blood Cells % 0 %; Platelet Count 173 10^3/cmm (130-400); Red Blood Count 4.02 10^6/uL (4.1-5.3); Red Cell Distribution Width 13.9 % (12.1-15.1); White Blood Count 8.4 10^3/uL (4.0-10.0)
[2021-09-23 04:30] LABS: Alanine Aminotransferase 24 U/L (0-33); Albumin Level 3.2 g/dL (3.5-5.2); Alkaline Phosphatase 66 IU/L (35-105); Anion Gap 11.6 (5-19); Aspartate Amino Transferase 17 U/L (0-32); Blood Urea Nitrogen 18 mg/dL (8-23); Calcium 8.2 mg/dL (8.5-10.5); Carbon Dioxide 23 mmol/L (22-29); Chloride 109 mmol/L (98-107); Globulin 2.5 g/dL (1.3-4.6); Glucose 192 mg/dL (65-115); Osmolality Calculated 295 mOsm/kg (285-295); Potassium 4.6 mmol/L (3.5-5.1); Sodium 139 mmol/L (136-145); Total Bilirubin 0.2 mg/dL (0.15-1.2); Total Protein 5.7 g/dL (6.6-8.7)
[2021-09-23] MEDS: heparin 5,000 unit/mL INJ 1 mL 5000 UNIT SUBCUT (05:31)
[2021-09-23 06:00] VITALS: PULSE 67
[2021-09-23 06:33] LABS: Glucose Point of Care 174 mg/dL (70-110)
[2021-09-23] MEDS: sodium chloride 0.9% 1,000 ML 75 ML IV (07:18)
[2021-09-23 08:00] VITALS: BP 155/64; PULSE 72; TEMP 37.1
[2021-09-23] MEDS: insulin lispro 100 unit/1 mL SUBCUT ×2 (08:06→12:18)
[2021-09-23] MEDS: levothyroxine 88 mcg Tablet PO (08:07)
[2021-09-23] MEDS: atorvastatin 40 mg Tablet PO (08:07)
[2021-09-23] MEDS: levoFLOXacin 750 mg Tablet PO (08:07)
[2021-09-23] MEDS: famotidine 20 mg Tablet PO (08:07)
--- NOTE | 2021-09-23 09:51 | PC.CHAP ---
Pastoral Care Encounter/Spiritual Assessment Type of Contact [] Declined rubber insulator visit [] Patient/Family/Request visit [] Outpatient visit [] Follow-up visit [] Physician referral [] Code/Alert [x] Routine visit [] Staff referral [] Actively dying [] Patient sleeping [] Family support [] [] Out of room [] Palliative care [] [] Receiving care in room [] Pre-surgical visit [] Trauma [] Long length of stay [] ICU visit [] Other: Relational/Emotional Strength [] Patient feels connected with others/family/visitors/staff [] Distress [] Loneliness/isolation [] Abandonment Spirituality of Patient [] Person of Magdalena [] Attends Latter Day of their Magdalena [] Believes in Prayer [] Reads Bible or Mormon materials [] There are Spiritual issues to be addressed Structures Engineer Interventions [x] Prayer [x] Active listening [x] Non-anxious presence [x] Spiritual/emotional support [] Crisis/trauma care [] Spiritual counseling [] Bereavement support [] Provided bereavement packet [] Provided Bible/devotional materials [] Provided toy/stuffed animal, coloring book to patient or family member [] Provided Communion [] Anointing/[place] [] Salvation [x] Completed spiritual assessment [] Other: Impact on Illness or Injury [] Angry [] Fearful [] Anxious [] Often cries [] Exhaustion [] Unable to work [] Unable to attend mormonism [] Unable to walk/stand [] Unable to read [] Unable to drive [] Unable to eat/drink [] Unable to sleep [] Unable to be with family [] Patient intubated [] Other: Summary patient sitting up in chair... feeling better... raising 2 grandchildren... Time spent with patient 10 min
[2021-09-23 11:09] LABS: Glucose Point of Care 231 mg/dL (70-110)
[2021-09-23] MEDS: amlodipine 5 mg Tablet PO (11:12)
[2021-09-23 12:00] VITALS: BP 137/92; PULSE 72; RESP 17; TEMP 36.4; O2SAT 98
--- NOTE | 2021-09-23 13:25 | PC.NURSE ---
Addendum entered by Qian Cohn RN 09/23/21 13:28: pt stated her pharmacy is close today and this weekend. Original Note: meds to bed
--- NOTE | 2021-09-23 13:54 | PM.DCS ---
Discharge Providers Date of Admission: 09/22/21 11:55 Date of Discharge: September 23, 2021 Attending Provider at Admission: Ismael Vasquez MD Attending Provider at Discharge: Ismael Vasquez MD Primary Care Provider: VERONICA Ram Diagnoses at Discharge Discharge Diagnosis (1) Syncope: Status: Acute (2) Bradycardia: Status: Acute (3) Essential hypertension: Status: Chronic (4) Diabetes: Status: Chronic Qualifiers: Diabetes mellitus type: type 2 Diabetes mellitus intermediate insulin use: with termite treater helper use Diabetes mellitus complication status: with other specified complication Qualified Code(s): E11.69 - Type 2 diabetes mellitus with other specified complication; Z79.4 - intermediate card tender (current) use of insulin Reason for Visit Reason for Visit: BRADYCARDIA, SEIZURE LIKE ACITIVITY Hospital Course Hospital Course Christina is an 81-year-old white female who presented to the emergency department after having a syncopal episode followed by some shaking. Patient related she was up trying to have a bowel movement straining when she became dizzy. Family members in ER reported history was related that patient became confused, syncopal, and had some shaking. She came to quickly. When EMS arrived her heart rate was in the 30s, and atropine was given. This increased her heart rate to the mid 60s, a junctional rhythm. She was brought into the emergency department where troponins had no significant delta. Acute kidney injury was noted. Mild elevation in potassium. Chest x-ray with questionable left lower lobe infiltrate. CT head negative. CT abdomen and pelvis negative. It was thought she had likely had vasovagal syncope, augmented by her verapamil. Verapamil was held, she was hydrated, and observed closely. During her hospital stay she had no significant bradycardia. She was placed on Norvasc for hypertension, and her lisinopril lowered. Cardiology evaluated the patient as well, an echocardiogram was obtained demonstrating preserved EF and no significant valvular abnormalities, grade 2/4 diastolic dysfunction. The following day she was feeling back to baseline, and with no significant findings it was thought she could be discharged home with close follow-up by cardiology. Physical Exam Narrative: EXAM NARRATIVE: General exam no distress Neck is supple Cardiovascular regular rate and rhythm Lungs clear Abdomen is soft Extremities no cyanosis clubbing or edema Discharge Data Data Completed and Pending: Completed Studies During Hospitalization Category Date Time Status CT abdomen pelvis w con* [id number] Stat Cat Scan 09/22/21 09:[address] head wo con* [id number] Stat Cat Scan 09/22/21 08:11 Completed XR chest 1V johan ble [id number] Stat Exams 09/22/21 08:11 Completed CV. echo complete * [id number] Routine Ultrasound 09/22/21 12:15 Completed Pending at discharge Category Date Time Status Blood Culture Sta t Lab 09/22/21 09:42 Results Sputum Culture an d Gram Stain Routi ne Lab 09/22/21 16:02 Uncollected Labs from last 24 hours 09/23/21 09/23/21 09/23/21 11:00 06:27 03:47 WBC RBC Hgb Hct MCV MCH MCHC RDW Plt Count MPV Neut % (Auto) Lymph % (Auto) [place] % (Auto) Eos % (Auto) Baso % (Auto) Neut # (Auto) Lymph # (Auto) [place] # (Auto) Eos # (Auto) Baso # (Auto) Nucleated RBC % (a uto) Nucleated RBCs # Sodium 139 Potassium 4.6 Chloride 109 H Carbon Dioxide 23 Anion Gap 11.6 BUN 18 Creatinine 0.8 GFR Calculation Not Reportable Glucose 192 H POC Glucose 231 H 174 H Calculated Osmolal ity 295 Lactic Acid (Sepsi s) Calcium 8.2 L Total Bilirubin 0.2 AST 17 ALT 24 Alkaline Phosphata se 66 Troponin T Hi Sens 6Hr Troponin T Hi Sens 6Hr Delta Total Protein 5.7 L Albumin 3.2 L Globulin 2.5 09/23/21 09/22/21 09/22/21 03:47 19:59 18:32 WBC 8.4 RBC 4.02 L Hgb 11.8 Hct 37.6 MCV 93.5 MCH 29.4 MCHC 31.4 RDW 13.9 Plt Count 173 MPV 10.7 H Neut % (Auto) 54.2 Lymph % (Auto) 35.0 [place] % (Auto) 6.7 Eos % (Auto) 3.2 Baso % (Auto) 0.7 Neut # (Auto) 4.53 Lymph # (Auto) 2.9 [place] # (Auto) 0.6 Eos # (Auto) 0.3 Baso # (Auto) 0.1 Nucleated RBC % (a uto) 0 Nucleated RBCs # 0.0 Sodium Potassium Chloride Carbon Dioxide Anion Gap BUN Creatinine GFR Calculation Glucose POC Glucose 133 H 171 H Calculated Osmolal ity Lactic Acid (Sepsi s) Calcium Total Bilirubin AST ALT Alkaline Phosphata se Troponin T Hi Sens 6Hr Troponin T Hi Sens 6Hr Delta Total Protein Albumin Globulin 09/22/21 09/22/21 09/22/21 16:30 16:30 14:59 WBC RBC Hgb Hct MCV MCH MCHC RDW Plt Count MPV Neut % (Auto) Lymph % (Auto) [place] % (Auto) Eos % (Auto) Baso % (Auto) Neut # (Auto) Lymph # (Auto) [place] # (Auto) Eos # (Auto) Baso # (Auto) Nucleated RBC % (a uto) Nucleated RBCs # Sodium Potassium Chloride Carbon Dioxide Anion Gap BUN Creatinine GFR Calculation Glucose POC Glucose 233 H Calculated Osmolal ity Lactic Acid (Sepsi s) 1.4 Calcium Total Bilirubin AST ALT Alkaline Phosphata se Troponin T Hi Sens 6Hr 16.73 H Troponin T Hi Sens 6Hr Delta -2.27 L Total Protein Albumin Globulin Vitals: Last Vital Signs Temp 97.6 F 09/23/21 12:00 Pulse 72 09/23/21 12:00 Resp 17 09/23/21 12:00 BP 137/92 09/23/21 12:00 Pulse Ox 98 09/23/21 12:00 Discharge Plan Discharge Patient Disposition: Home Condition: Stable Prescriptions: New amlodipine 5 mg Tablet 5 mg PO DAILY Qty: 30 RF: 0 levothyroxine 88 mcg Tablet 88 mcg PO DAILY Qty: 30 RF: 0 levofloxacin 750 mg Tablet 750 mg PO DAILY Qty: 5 RF: 0 Continued lutein 10 mg tablet 10 mg PO DAILY RF: 0 (DME) Diabetic shoes with 3 inserts See Rx Instructions .ROUTE .MEDSUPPLY Qty: 1 RF: 0 triamcinolone acetonide 0.1 % cream 1 applic TOPICAL DAILY 30 Days Qty: 80 RF: 2 oxybutynin chloride 15 mg tablet extended release 24 hr 15 mg PO DAILY 30 Days Qty: 30 RF: 2 omega-3 fatty acids [Fish Oil Concentrate] 1,000 mg capsule 1,000 mg PO DAILY 30 Days Qty: 30 RF: 2 ketoconazole 2 % cream 1 applic topical BID 14 Days Qty: 60 RF: 2 Levemir FlexTouch U-100 Insuln 100 unit/mL (3 mL) insulin pen 40 unit SUBCUT BID 30 Days Qty: 24 RF: 2 insulin aspart U-100 [Novolog PenFill U-100 Insulin] 100 unit/mL cartridge See Rx Instructions SUBCUT TID 30 Days Qty: 15 RF: 2 Mucinex 600 mg tablet extended release 12hr 600 mg PO Q12H PRN (Reason: congestion) 30 Days Qty: 60 RF: 2 furosemide 20 mg tablet 20 mg PO BID 30 Days Qty: 60 RF: 2 fluticasone propionate 50 mcg/actuation spray,suspension 2 spray INTRANASAL DAILY 30 Days Qty: 9.9 RF: 2 famotidine 20 mg tablet 20 mg PO BID 30 Days Qty: 60 RF: 2 Zyrtec 10 mg tablet 10 mg PO DAILY 30 Days Qty: 30 RF: 2 calcium carbonate-vitamin D3 [Calcium 600 with Vitamin D3] 600 mg(1,500mg) -500 unit capsule 1 cap PO DAILY 30 Days Qty: 30 RF: 2 atorvastatin 40 mg tablet 40 mg PO DAILY 30 Days Qty: 30 RF: 2 ascorbic acid (vitamin C) 1,000 mg tablet 500 mg PO DAILY 30 Days Qty: 30 RF: 2 nystatin 100,000 unit/gram powder 1 applic topical TID 30 Days Qty: 60 RF: 2 (DME) Diabetic shoes See Rx Instructions .Route .MEDSUPPLY Qty: 1 RF: 0 betamethasone dipropionate 0.05 % cream 1 applic topical BID Qty: 45 RF: 2 ergocalciferol (vitamin D2) 1,250 mcg (50,000 unit) capsule 50,000 unit PO Q7D RF: 0 potassium chloride 20 mEq tablet extended release 20 meq PO DAILY RF: 0 Changed lisinopril 20 mg tablet 20 mg PO DAILY 30 Days Qty: 60 RF: 2 Discontinued verapamil 360 mg capsule,ext rel. pellets 24 hr 360 mg PO QAM 30 Days Qty: 30 RF: 2 levothyroxine 75 mcg capsule 75 mcg PO DAILY 30 Days Qty: 30 RF: 2 Discharge Orders: Discharge Order (Routine); Ordered 09/23/21 Ordered By: Ismael Vasquez Referrals: Shyam Bellamy MD [Physician] - 7-10 days (Okay to follow-up with Molly Calle, follow-up arrhythmia) Marcelina Enrique FNP-C [Primary Care Provider] - 4-7 days Discharge Diet: Cardiac and Diabetic Discharge Activity: Increase activity as tolerated Patient Instructions: Opioid Safety Activity Restrictions/Additional Instructions: Follow-up with primary care provider 3 to 5 days Follow-up with cardiology 7 to 10 days Discharge Attestations Time Spent in Discharge Care*: greater than 30 min Quality Metrics Clinical Quality Measures During this hospital stay, did patient experience: None Coding Level of Care Code Acute Chg FW DC note Diagnoses Syncope R55 Bradycardia R00.1 Essential hypertension I10 Diabetes E11.69; Z79.4 Diabetes mellitus type: type 2 Diabetes mellitus intermediate insulin use: with termite treater helper use Diabetes mellitus complication status: with other specified complication
[2021-09-23 14:00] VITALS: PULSE 78
--- NOTE | 2021-09-23 16:29 | P.PN_ITS ---
Subjective Subjective: Interval history: Feels well and denies any complaints. HR running 70-80's now. remains in SR. No CP, SOB, dizziness. Medications: Reviewed: Yes Vitals/I&O/Wt Last Vital Signs Temp 97.6 F 09/23/21 12:00 Pulse 72 09/23/21 12:00 Resp 17 09/23/21 12:00 BP 137/92 09/23/21 12:00 Pulse Ox 98 09/23/21 12:00 09/23/21 09/23/21 09/23/21 06:59 14:59 22:59 Intake Total 1463 / 1463 Output Total 1100 / 1100 1000 / 1000 Balance -1100 / -1100 463 / 463 Weight last 48 hrs Weight 179 lb Physical Exam Narrative: EXAM NARRATIVE: GENERAL: obese woman laying in bed in no acute distress HEENT: Pupils equal round reactive to light. No pallor or icterus. NECK: NoJVD, No carotid bruit. CARDIOVASCULAR SYSTEM: S1-S2 regular. No murmur rubs or gallops. RESPIRATORY SYSTEM: Chest clear to auscultation. No wheezes rhonchi or rubs heard. No use of accessory muscles. ABDOMEN: Soft, nontender and nondistended. Normal bowel sounds present. EXTREMITIES: No cyanosis or edema. No signs of chronic venous insufficiency. WARD SECRETARY: Patient is alert oriented ?3. No focal neurological deficits. SKIN: Normal turgor and temperature. Data : 09/23/21 03:47 09/23/21 03:47 Micro: Microbiology 09/22/21 09:42 Blood Culture - Preliminary Blood NEGATIVE TO DATE 09/22/21 09:40 Blood Culture - Preliminary Blood NEGATIVE TO DATE A&P Assessment and plan (1) Syncope: Likley vasovagal. Baseline troponin T 19 at 2 hours 17 and at 6 hours 16.7. On verapamil at home. continue to hold. -HR running 50's-70's -continue to monitor closely on telemetry. 09/23/21 stable, doing well. Now in SR with HR in 70-80's -BP/HR log x 2 weeks on discharge. -May consider event monitor, if she is bradycardic again. Status: Acute (2) Bradycardia: Ectopic atrial rhythm on old EKG and on telemetry yesterday. -resolved. 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 Hypothyroidism: TSH 6.1 History of 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 No acute intracranial hemorrhage or edema. Attestations Medical Necessity Statement*: stable to be discharged Time Spent in Patient Care: 16 - 35 minutes (>than 50% of time spent in counselling and/or direct pt care on unit) . Coding Level of Care Code Acute Clamshell Engineer for [facility] Fwd Diagnoses Syncope R55 Bradycardia R00.1 Essential hypertension I10 Diabetes E11.69; Z79.4 Diabetes mellitus type: type 2 Diabetes mellitus oil heaterman insulin use: with fdc use Diabetes mellitus complication status: with other specified complication
== END 2021-09-23 15:57 | disposition home or self-care (01) ==
LOC: ER 12:02 → CSU 19:11
PROVIDERS: Admitting Provider Internal Medicine; Emergency Provider Family Medicine; PCP Nurse Practitioner Family; Visit Provider Internal Medicine
DX: R00.1 Bradycardia, unspecified (principal); R55 Syncope and collapse; J18.9 Pneumonia, unspecified organism; E11.69 Type 2 diabetes mellitus with other specified complication; I10 Essential (primary) hypertension; E03.9 Hypothyroidism, unspecified; K21.9 Gastro-esophageal reflux disease without esophagitis; E78.5 Hyperlipidemia, unspecified; E55.9 Vitamin D deficiency, unspecified; N17.9 Acute kidney failure, unspecified; E87.5 Hyperkalemia; Z79.4 Long term (current) use of insulin
CPT/HCPCS: 36415; 36416; 70450; 71045; 74177; 80053; 81003; 82550; 82962; 83605; 83735; 84443; 84484; 85025; 87040; 93005; 93306; 96365; 96372; 99291; G0378; J1644; J1815 ×2; J1956; J7030; Q9967

== ENCOUNTER → 2021-09-27 11:36 | Outpatient (BNVA) | payer MEDICARE, MEDICAID, SELFPAY | PROVIDERS: PCP Nurse Practitioner Family; Visit Provider Nurse Practitioner Family | DX: J18.9 Pneumonia, unspecified organism (principal) | CPT/HCPCS: 71046; 80053 ==

== ENCOUNTER → 2021-10-31 09:10 | Outpatient (BNVA) | payer MEDICARE, MEDICAID, SELFPAY | PROVIDERS: PCP Nurse Practitioner Family; Visit Provider Nurse Practitioner Family | DX: E03.9 Hypothyroidism, unspecified (principal); E78.5 Hyperlipidemia, unspecified; E11.69 Type 2 diabetes mellitus with other specified complication; Z79.4 Long term (current) use of insulin | CPT/HCPCS: 80053; 80061; 83036; 84443; 85025 ==

== ENCOUNTER 2021-12-07 08:45 | Outpatient (CLI) | payer MEDICARE, MEDICAID, SELFPAY ==
--- NOTE | 2021-12-07 08:45 | USCV_ITS ---
Christina Julien Age: 81 Gender: F : 1940 Exam Date: 12/07/2021 09:18 Ordering Phys: Molly Calle Technologist: PETE [place] [facility] [place]: 6 month f/u. No hx CVA per patient. IDDM x 35 yrs. Never smoked. Risk Factors: 6 month f/u. No hx CVA per patient. IDDM x 35 yrs. Never smoked. Previous Vascular Surgery: None Right Brachial BP: / Left Brachial BP: / Right Left Velocity (cm/s) Spectral Plaque Velocity (cm/s) Spectral Plaque Syst/Diast Broadening Syst/Diast Broadening 78.30/ 6.60 Min Homo Prox CCA 92.00 / 7.80 Min Homo 77.20/ 8.80 Min Homo Mid CCA 93.70 / 8.80 Min Homo 56.10/ 6.40 Min Rasta Distal CCA 94.80 / 11.00 Min Hetro 108.10/17.60 Min Rasta Prox ICA 97.90 / 14.00 Min Hetro 93.70/ 19.80 Min Homo Mid ICA 123.50/ 30.90 Min Homo 112.80/27.20 Min Homo Distal ICA 122.40/ 33.10 Min Homo 344.60 Marked Rasta ECA 108.10 Min Homo 1.44 ICA/CCA 1.30 Antegrade Vertebral Antegrade 55.10/ 8.80 cm/s 50.70/ 9.90 cm/s Tri Subclavian Tri 98.10 90.40 FINDINGS Moderate dense plaque of the right bifurcation and proximal internal carotid artery. Intimal thickening and minimal plaques of the common carotid arteries bilaterally Minimal plaques at the left bifurcation Antegrade flow in the vertebral arteries bilaterally Elevated velocity in the right external carotid artery CONCLUSIONS Moderate dense plaque at the right bifurcation and proximal internal carotid artery, suggesting less than 50% stenosis. Minimal plaque at the left bifurcation. Elevated velocity in the external carotid artery on the right side, suggestive of hemodynamically significant stenosis. No significant stenosis in the other vessels, based on the above findings. Compared to the study from 05/31/2020, the stenosis on the right side appears to be less severe Dr Shyam Bellamy MD [facility] (Electronically Signed) Final Date: 07 December 2021 13:19 S
== END 2021-12-07 08:46 | disposition home or self-care (01) ==
LOC: RAD 08:48
PROVIDERS: PCP Nurse Practitioner Family; Visit Provider Nurse Practitioner Family
DX: I65.23 Occlusion and stenosis of bilateral carotid arteries (principal)
CPT/HCPCS: 93880

== ENCOUNTER → 2022-02-01 11:41 | Outpatient (BNVA) | payer MEDICARE, MEDICAID, SELFPAY | PROVIDERS: PCP Nurse Practitioner Family; Visit Provider Nurse Practitioner Family | DX: E03.9 Hypothyroidism, unspecified (principal); E78.5 Hyperlipidemia, unspecified; E11.69 Type 2 diabetes mellitus with other specified complication; Z79.4 Long term (current) use of insulin | CPT/HCPCS: 80053; 80061; 81000; 83036; 84443; 85025 ==

== ENCOUNTER → 2022-02-09 14:11 | Outpatient (BNVA) | payer MEDICARE, MEDICAID, SELFPAY | PROVIDERS: PCP Nurse Practitioner Family; Visit Provider Internal Medicine Cardiovascular Disease | DX: I65.23 Occlusion and stenosis of bilateral carotid arteries (principal); E03.9 Hypothyroidism, unspecified; E78.5 Hyperlipidemia, unspecified; I10 Essential (primary) hypertension | CPT/HCPCS: 99214 ==

== ENCOUNTER → 2022-04-27 15:09 | Outpatient (BNVA) | payer MEDICARE, MEDICAID, SELFPAY | PROVIDERS: PCP Nurse Practitioner Family; Visit Provider Nurse Practitioner Family | DX: R10.9 Unspecified abdominal pain (principal); E11.69 Type 2 diabetes mellitus with other specified complication; Z79.4 Long term (current) use of insulin; B37.2 Candidiasis of skin and nail; E78.5 Hyperlipidemia, unspecified; R32 Unspecified urinary incontinence; I87.2 Venous insufficiency (chronic) (peripheral); J30.89 Other allergic rhinitis; R60.0 Localized edema; B37.9 Candidiasis, unspecified; K21.9 Gastro-esophageal reflux disease without esophagitis; Z76.0 Encounter for issue of repeat prescription; E03.9 Hypothyroidism, unspecified | CPT/HCPCS: 80053; 80061; 81000; 83036; 84443; 85025 ==

== ENCOUNTER → 2022-08-17 11:19 | Outpatient (BNVA) | payer MEDICARE, MEDICAID, SELFPAY | PROVIDERS: PCP Nurse Practitioner Family; Visit Provider Nurse Practitioner Family | DX: I87.2 Venous insufficiency (chronic) (peripheral) (principal); R32 Unspecified urinary incontinence; E78.5 Hyperlipidemia, unspecified; B37.2 Candidiasis of skin and nail; E11.69 Type 2 diabetes mellitus with other specified complication; Z79.4 Long term (current) use of insulin; J30.89 Other allergic rhinitis; R60.0 Localized edema; K21.9 Gastro-esophageal reflux disease without esophagitis; Z76.0 Encounter for issue of repeat prescription; I10 Essential (primary) hypertension; Z86.16 Personal history of COVID-19; I65.23 Occlusion and stenosis of bilateral carotid arteries; E03.8 Other specified hypothyroidism; E04.1 Nontoxic single thyroid nodule; E55.9 Vitamin D deficiency, unspecified; Z91.19 Patient's noncompliance with other medical treatment and regimen | CPT/HCPCS: 80053; 80061; 83036; 84443; 85025 ==

== ENCOUNTER → 2022-08-31 13:52 | Outpatient (BNVA) | payer MEDICARE, MEDICAID, SELFPAY | PROVIDERS: PCP Nurse Practitioner Family; Visit Provider Internal Medicine Cardiovascular Disease | DX: I65.23 Occlusion and stenosis of bilateral carotid arteries (principal); I10 Essential (primary) hypertension; E03.9 Hypothyroidism, unspecified; E78.5 Hyperlipidemia, unspecified; E04.1 Nontoxic single thyroid nodule | CPT/HCPCS: 99214 ==

== ENCOUNTER → 2022-09-19 11:02 | Outpatient (BNVA) | payer MEDICARE, MEDICAID, SELFPAY | PROVIDERS: PCP Nurse Practitioner Family; Visit Provider Podiatrist Foot & Ankle Surgery | DX: E11.42 Type 2 diabetes mellitus with diabetic polyneuropathy (principal); I73.9 Peripheral vascular disease, unspecified; L60.3 Nail dystrophy; M21.41 Flat foot [pes planus] (acquired), right foot; M21.42 Flat foot [pes planus] (acquired), left foot; L84 Corns and callosities; Z79.4 Long term (current) use of insulin | CPT/HCPCS: 11056; 11721 ==

== ENCOUNTER → 2022-10-27 11:45 | Outpatient (BNVA) | payer MEDICARE, MEDICAID, SELFPAY | PROVIDERS: PCP Nurse Practitioner Family; Visit Provider Nurse Practitioner Family | DX: I87.2 Venous insufficiency (chronic) (peripheral) (principal); R32 Unspecified urinary incontinence; E78.5 Hyperlipidemia, unspecified; B37.2 Candidiasis of skin and nail; Z79.4 Long term (current) use of insulin; J30.89 Other allergic rhinitis; R60.0 Localized edema; K21.9 Gastro-esophageal reflux disease without esophagitis; Z76.0 Encounter for issue of repeat prescription; E11.69 Type 2 diabetes mellitus with other specified complication; H65.193 Other acute nonsuppurative otitis media, bilateral; I10 Essential (primary) hypertension; R14.0 Abdominal distension (gaseous); R10.9 Unspecified abdominal pain; R15.9 Full incontinence of feces | CPT/HCPCS: 80053; 80061; 83036; 84443; 85025 ==

== ENCOUNTER 2022-10-30 10:50 | Outpatient (CLI) | payer MEDICARE, MEDICAID, SELFPAY ==
--- NOTE | 2022-10-30 11:15 | USCV_ITS ---
Christina Julien Age: 82 Gender: F : 1940 Exam Date: 10/30/2022 11:17 Ordering Phys: Shyam Bellamy MD ([email or web address]) Technologist: CHE Exam Location: [facility] – [place] Indication: STENOSIS Risk Factors: Previous Vascular Surgery: Right Brachial BP: / Left Brachial BP: / Right Left Velocity (cm/s) Spectral Plaque Velocity (cm/s) Spectral Plaque Syst/Diast Broadening Syst/Diast Broadening 80.50/ 4.40 Prox CCA 108.10/ 6.60 76.10/ 7.70 Mid CCA 70.60 / 9.90 68.40/ 9.90 Hetro Distal CCA 56.20 / 7.70 130.50/24.90 Hetro Prox ICA 71.70 / 12.10 130.50/15.50 Hetro Mid ICA 79.40 / 16.50 102.50/23.30 Hetro Distal ICA 108.10/ 17.60 132.10 Hetro ECA 105.80 1.62 ICA/CCA 1.00 Antegrade Vertebral Antegrade 68.40/ 3.10 cm/s 103.6/ 4.40 cm/s 0 Tri Subclavian Tri 73.90 118.0 0 FINDINGS Comparison:. 12/07/21 Diffuse bilateral scattered calcified plaque and intimal thickening throughout the common carotid arteries and extending through the bifurcation. Mild tortuosity and turbulence. Antegrade vertebral arteries. CONCLUSIONS Bilateral ICA stenosis less than 50%. No interval change in stenosis since prior exam. Mild carotid atherosclerosis. Dr. Aurora Perez DO (Electronically Signed) Final Date: 30 October 2022 13:07 S
--- NOTE | 2022-10-30 12:00 | US_ITS ---
WS: [id number] THYROID ULTRASOUND HISTORY: nodule COMPARISON: 05/31/2020 Right lobe: 1.0 cm x 1.1 cm x 1.8 cm (w x ap x l). Volume: 1.0 cm3. Small shrunken heterogeneous thyroid. No nodules or increased vascularity. Previously described nodul e is not present or visualized. Left lobe: 1.0 cm x 1.0 cm x 2.2 cm (w x ap x l). Volume: 1.2 cm3. Small shrunken heterogeneous thyroid. No nodules are identified today. Isthmus: 0.1 cm. US/US thyroid [id number] IMPRESSION: Atrophic heterogeneous thyroid. No nodules are identified on today's examjoe clark
== END 2022-10-30 10:51 | disposition home or self-care (01) ==
LOC: RAD 10:52
PROVIDERS: PCP Nurse Practitioner Family; Visit Provider Internal Medicine Cardiovascular Disease
DX: I65.23 Occlusion and stenosis of bilateral carotid arteries (principal); I77.9 Disorder of arteries and arterioles, unspecified; E03.4 Atrophy of thyroid (acquired); E04.1 Nontoxic single thyroid nodule
CPT/HCPCS: 76536; 93880

== ENCOUNTER 2023-02-01 09:04 | Outpatient (CLI) | payer MEDICARE, MEDICAID, SELFPAY ==
[2023-02-01] MEDS: iohexol 350 mg/mL 500 mL Btl (per mL) IV (09:25)
[2023-02-01] MEDS: iohexol 350 mg/mL 500 mL Btl (per mL) PO (09:26)
--- NOTE | 2023-02-01 10:30 | CT_ITS ---
WS: [id number] CT ABDOMEN PELVIS TECHNIQUE: Contrast-enhanced CT of the abdomen and pelvis with coronal and sagittal reformatted image s. CLINICAL INFORMATION: R14.0 - Abdominal distension (gaseous) COMPARISON: CT September 22, 2021 DLP: 750.[address] scans at [facility] use at least one of these dose optimization techniques: automated e xposure control; mA and/or kV adjustment per patient size (includes targeted exams where dose is matc hed to clinical indication); or iterative reconstruction. FINDINGS: Mild diffuse fatty infiltration of the liver. Normal portal vein and splenic vein. Fatty atrophy of t he pancreas. Normal spleen. Normal GE junction. Small esophageal hiatal hernia. Slight subsegmental a telectasis in the LEFT greater than RIGHT lower lobes. Air-fluid levels in the stomach with air distended distal stomach. Large amount of residual contrast in the stomach. Luminal stenosis at the pylorus may be due to spasm but indeterminant. This can be fu rther evaluated with endoscopy. Evidence of prior ventral abdominal wall surgery in the RIGHT upper abdomen. Adrenal glands are edmundo l. Normal renal parenchymal enhancement. No hydronephrosis. No obstructing renal or ureteral calculi. Normal caliber abdominal aorta. Aortic calcification. Celiac is patent. High-grade stenosis of the S MA origin with dense calcification is unchanged. Densely calcified RIGHT renal artery origin. Normal sigmoid colon. Fecal retention in the transverse colon. No evidence of high-grade small or lar ge bowel obstruction. Grade 1 anterolisthesis L5 on S1. CT/CT abdomen pelvis w con* [id number] IMPRESSION: 1. Small esophageal hiatal hernia. 2. Fluid distended stomach with a large amount of residual contrast and air-fl uid levels. Recommend correlation for gastric outlet obstruction. Stenosis dist al stomach at the pylorus nonspecific and may be due to spasm This can be furth er evaluated with endoscopy. 3. Mild diffuse fatty infiltration of the liver 4. No hydronephrosis in either kidney. 5. Evidence of prior postoperative changes RIGHT upper ventral abdominal wall. 6. Tiny plantar cystocele. 7. Grade 1 anterolisthesis L5 on S1 appears stable. 8. Prior cholecystectomy.
[2023-02-01 10:59] LABS: Blood Urea Nitrogen 26 mg/dL (8-23)
== END 2023-02-01 09:05 | disposition home or self-care (01) ==
LOC: RAD 09:09
PROVIDERS: PCP Nurse Practitioner Family; Visit Provider Nurse Practitioner Family
DX: R14.0 Abdominal distension (gaseous) (principal); K44.9 Diaphragmatic hernia without obstruction or gangrene; K76.0 Fatty (change of) liver, not elsewhere classified; N81.10 Cystocele, unspecified; Z90.49 Acquired absence of other specified parts of digestive tract
CPT/HCPCS: 74177; 82565; 84520; Q9967

== ENCOUNTER → 2023-02-12 09:49 | Outpatient (BNVA) | payer MEDICARE, MEDICAID, SELFPAY | PROVIDERS: PCP Nurse Practitioner Family; Visit Provider Internal Medicine Cardiovascular Disease | DX: I10 Essential (primary) hypertension (principal); E78.5 Hyperlipidemia, unspecified; E11.69 Type 2 diabetes mellitus with other specified complication; Z79.4 Long term (current) use of insulin; I65.23 Occlusion and stenosis of bilateral carotid arteries; R01.1 Cardiac murmur, unspecified; Z79.82 Long term (current) use of aspirin | CPT/HCPCS: 99214 ==

== ENCOUNTER → 2023-02-16 11:02 | Outpatient (BNVA) | payer MEDICARE, MEDICAID, SELFPAY | PROVIDERS: PCP Nurse Practitioner Family; Visit Provider Nurse Practitioner Family | DX: R39.9 Unspecified symptoms and signs involving the genitourinary system (principal); I87.2 Venous insufficiency (chronic) (peripheral); R32 Unspecified urinary incontinence; E78.5 Hyperlipidemia, unspecified; Z79.4 Long term (current) use of insulin; J30.89 Other allergic rhinitis; R60.0 Localized edema; K21.9 Gastro-esophageal reflux disease without esophagitis; Z76.0 Encounter for issue of repeat prescription; B37.2 Candidiasis of skin and nail; E11.69 Type 2 diabetes mellitus with other specified complication; E03.9 Hypothyroidism, unspecified | CPT/HCPCS: 80053; 80061; 81000; 83036; 84443 ==

== ENCOUNTER → 2023-02-27 10:58 | Outpatient (BNVA) | payer MEDICARE, MEDICAID, SELFPAY | PROVIDERS: PCP Nurse Practitioner Family; Visit Provider Podiatrist Foot & Ankle Surgery | DX: I73.9 Peripheral vascular disease, unspecified (principal); E11.42 Type 2 diabetes mellitus with diabetic polyneuropathy; L60.3 Nail dystrophy; Z79.4 Long term (current) use of insulin; M21.41 Flat foot [pes planus] (acquired), right foot; M21.42 Flat foot [pes planus] (acquired), left foot; L84 Corns and callosities | CPT/HCPCS: 11056; 11721 ==

== ENCOUNTER → 2023-03-07 14:41 | Outpatient (BNVA) | payer MEDICARE, MEDICAID, SELFPAY | PROVIDERS: PCP Nurse Practitioner Family; Visit Provider Surgery | DX: K21.9 Gastro-esophageal reflux disease without esophagitis (principal); E11.69 Type 2 diabetes mellitus with other specified complication; Z79.4 Long term (current) use of insulin | CPT/HCPCS: 99203 ==

== ENCOUNTER 2023-05-01 13:24 | Outpatient (CLI) | payer MEDICARE, MEDICAID, SELFPAY ==
--- NOTE | 2023-05-01 13:30 | USCV_ITS ---
Christina Julien Age: 82 Gender: F : 1940 Exam Date: 05/01/2023 13:49 Ordering Phys: Shyam Bellamy MD ([email or web address]) Technologist: Indigo Radford [place] [facility] [place] Indication: Systolic murmur BP: / HR: 73 Rhythm: Sinus Technical Quality: Adequate MEASUREMENTS (Male / Female) Normal Values 2D ECHO LV Diastolic Diameter PLAX 4.5 cm 4.2 - 5.9 / 3.9 - 5.3 cm LV Systolic Diameter PLAX 2.2 cm LV Chamber Size 3.0 cm IVS Diastolic Thickness 0.8 cm 0.6 - 1.0 / 0.6 - 0.9 cm IVS Systolic Thickness 1.4 cm LVPW Diastolic Thickness 1.1 cm 0.6 - 1.0 / 0.6 - 0.9 cm LVPW Systolic Thickness 1.9 cm RV Chamber Size 1.9 cm LVOT Diameter 2.0 cm LV Ejection Fraction 2D Teich 83.6 % LV Ejection Fraction MOD 2C 59.2 % LV Ejection Fraction 2C AL 57.4 % LA Diameter 3.9 cm LA Width 2.8 cm LA Height 3.4 cm RA Width 2.8 cm RA Height 3.5 cm Aorta at Sinotubular Diameter 2.2 cm IVC Diameter 1.6 cm M-MODE Aortic Annulus Diameter 3.0 cm LA Ao Ratio MM 1.4 MV E Point Septal Separation 1.0 cm DOPPLER AV Peak Velocity 163.0 cm/s LVOT Peak Velocity 129.0 cm/s AV Area Cont Eq vti 2.9 cm squared AV Area Cont Eq pk 2.5 cm squared MV Area PHT 2.1 cm squared Mitral E to A Ratio 0.5 MV E' Velocity 37.0 cm/s Mitral E to MV E' Ratio 10.2 Mitral E to LV E' Lateral Ratio 11.2 Mitral E to LV E' Septal Ratio 9.3 TR Peak Velocity 234.8 cm/s TR Peak Gradient 22.1 mmHg TR Mean Velocity 190.9 cm/s TR Mean Gradient 16.9 mmHg TR Velocity Time Integral 76.5 cm TV Peak E Velocity 73.0 cm/s Right Atrial Pressure 3.0 mmHg Pulmonary Artery Systolic Pressu 25.1 mmHg RV Acceleration Time 0.1 s RV Ejection Time 0.3 s RV AcT/ET 0.3 FINDINGS Left Ventricle Left ventricle is normal in size. LV systolic function is normal with EF of 55 to 60%. No regional wall motion abnormalities are seen. Grade 1 diastolic dysfunction Right Ventricle Normal in size and function Right Atrium Normal in size Left Atrium Normal in size Mitral Valve Moderate mitral annular calcification. Aortic Valve Structurally normal aortic valve. No significant stenosis. Tricuspid Valve Mild tricuspid regurgitation. Insufficient TR jet to evaluate RVSP. Pulmonic Valve Not well-visualized Pericardium Normal Aorta Normal in size IVC Appears to be normal CONCLUSIONS LV systolic exam is normal with EF of 55 to 60% Grade 1 diastolic dysfunction Mild tricuspid regurgitation Compared to prior echocardiogram from 2020, no significant changes are seen. Jas Willis MD (Electronically Signed) Final Date: 05 May 2023 15:10 S
== END 2023-05-01 13:25 | disposition home or self-care (01) ==
LOC: RAD 13:25
PROVIDERS: PCP Nurse Practitioner Family; Visit Provider Internal Medicine Cardiovascular Disease
DX: R06.09 Other forms of dyspnea (principal); I07.1 Rheumatic tricuspid insufficiency; I73.9 Peripheral vascular disease, unspecified; L60.3 Nail dystrophy; L84 Corns and callosities; E11.69 Type 2 diabetes mellitus with other specified complication; Z79.4 Long term (current) use of insulin; E11.42 Type 2 diabetes mellitus with diabetic polyneuropathy; M21.42 Flat foot [pes planus] (acquired), left foot; M21.41 Flat foot [pes planus] (acquired), right foot
CPT/HCPCS: 11056; 11721; 93306

== ENCOUNTER → 2023-05-16 16:00 | Outpatient (BNVA) | payer MEDICARE, MEDICAID, SELFPAY | PROVIDERS: PCP Nurse Practitioner Family; Visit Provider Nurse Practitioner Family | DX: R30.0 Dysuria (principal) | CPT/HCPCS: 81000 ==

== ENCOUNTER → 2023-05-17 11:12 | Outpatient (BNVA) | payer MEDICARE, MEDICAID, SELFPAY | PROVIDERS: PCP Nurse Practitioner Family; Visit Provider Nurse Practitioner Family | DX: B37.2 Candidiasis of skin and nail (principal); I87.2 Venous insufficiency (chronic) (peripheral); R30.0 Dysuria; R32 Unspecified urinary incontinence; E78.5 Hyperlipidemia, unspecified; Z79.4 Long term (current) use of insulin; J30.89 Other allergic rhinitis; R60.0 Localized edema; K21.9 Gastro-esophageal reflux disease without esophagitis; Z76.0 Encounter for issue of repeat prescription; E11.69 Type 2 diabetes mellitus with other specified complication; E11.9 Type 2 diabetes mellitus without complications; I10 Essential (primary) hypertension; I65.23 Occlusion and stenosis of bilateral carotid arteries; E03.8 Other specified hypothyroidism; L03.90 Cellulitis, unspecified; E55.9 Vitamin D deficiency, unspecified; E04.1 Nontoxic single thyroid nodule; R14.0 Abdominal distension (gaseous); R10.9 Unspecified abdominal pain | CPT/HCPCS: 80053; 80061; 83036; 84443; 85025 ==

== ENCOUNTER → 2023-07-03 15:21 | Outpatient (BNVA) | payer MEDICARE, MEDICAID, SELFPAY | PROVIDERS: PCP Nurse Practitioner Family; Visit Provider Podiatrist Foot & Ankle Surgery | DX: L60.8 Other nail disorders (principal); L60.3 Nail dystrophy; E11.42 Type 2 diabetes mellitus with diabetic polyneuropathy; I73.9 Peripheral vascular disease, unspecified; M21.40 Flat foot [pes planus] (acquired), unspecified foot; L84 Corns and callosities; Z79.4 Long term (current) use of insulin | CPT/HCPCS: 11056; 11721 ==

== ENCOUNTER 2023-07-12 13:09 | Outpatient (CLI) | payer MEDICARE, MEDICAID, SELFPAY ==
--- NOTE | 2023-07-12 13:20 | MM_ITS ---
WS: [id number] Bilateral screening 3D tomosynthesis digital mammogram, 07/12/2023 Clinical Data: Z12.39 - Encounter for other screening for malignant neop... Comparison: 05/18/2015, 08/29/2012, 10/11/2010, 11/30/2008, 07/09/2008. Findings: The breast parenchymal pattern shows fibroglandular tissue. No spiculated masses or clustered calcifi cations are seen. There are no secondary signs of carcinoma. There are mole markers on both breasts. There are large veins in each breast. Impression: 1. Negative bilateral mammogram unchanged. 2. Recommend annual screening mammograms. BI RADS: 1-Negative MM/[place] [id number] FOLLOW UP: 1 Year Follow-up The CAD thread checker was used.
== END 2023-07-12 13:10 | disposition home or self-care (01) ==
PROVIDERS: PCP Nurse Practitioner Family; Visit Provider Nurse Practitioner Family
DX: Z12.31 Encounter for screening mammogram for malignant neoplasm of breast (principal)
CPT/HCPCS: 77063; 77067

== ENCOUNTER → 2023-08-15 14:04 | Outpatient (BNVA) | payer MEDICARE, MEDICAID, SELFPAY | PROVIDERS: PCP Nurse Practitioner Family; Visit Provider Nurse Practitioner Family | DX: E78.5 Hyperlipidemia, unspecified (principal); E03.8 Other specified hypothyroidism; E11.9 Type 2 diabetes mellitus without complications; E11.69 Type 2 diabetes mellitus with other specified complication; Z79.4 Long term (current) use of insulin; I10 Essential (primary) hypertension; I65.23 Occlusion and stenosis of bilateral carotid arteries; E04.1 Nontoxic single thyroid nodule; K21.9 Gastro-esophageal reflux disease without esophagitis; I87.2 Venous insufficiency (chronic) (peripheral); E55.9 Vitamin D deficiency, unspecified; J30.89 Other allergic rhinitis; B37.2 Candidiasis of skin and nail; R60.0 Localized edema; R14.0 Abdominal distension (gaseous); R10.9 Unspecified abdominal pain; R32 Unspecified urinary incontinence; R15.9 Full incontinence of feces; M19.90 Unspecified osteoarthritis, unspecified site | CPT/HCPCS: 80053; 80061; 83036; 84443; 85025 ==

== ENCOUNTER → 2023-09-25 10:58 | Outpatient (BNVA) | payer MEDICARE, MEDICAID, SELFPAY | PROVIDERS: PCP Nurse Practitioner Family; Visit Provider Podiatrist Foot & Ankle Surgery | DX: L60.3 Nail dystrophy (principal); E11.42 Type 2 diabetes mellitus with diabetic polyneuropathy; I73.9 Peripheral vascular disease, unspecified; M21.40 Flat foot [pes planus] (acquired), unspecified foot; L84 Corns and callosities; Z79.4 Long term (current) use of insulin | CPT/HCPCS: 11056; 11721 ==

== ENCOUNTER 2023-10-26 10:48 | Inpatient (IN) | payer MEDICARE, MEDICAID, SELFPAY ==
[2023-10-26] VITALS (42 sets, daily range): BP systolic 110–151; BP diastolic 39–60; PULSE 86–101; RESP 13–26; TEMP 36.3–36.9; O2SAT 91–100; BMI 34.7
--- NOTE | 2023-10-26 10:49 | ECG_ITS ---
[facility] Test Date: 2023-10-26 Pat Name: Christina Julien Department: Room: Gender: Female Academic Affairs Dean: : 1940 Requested By: Redd Vo Order Number: [id number] Latoya MD: Devi Ragland M.D. Measurements Intervals [place] Rate: 89 P: -33 NM: 141 QRS: 145 QRSD: 104 T: 119 QT: 358 QTc: 437 Interpretive Statements SINUS RHYTHM POSSIBLE RIGHT VENTRICULAR HYPERTROPHY [SOME/ALL OF: PROMINENT R IN V1, LATE TRANSITION, RAD, JANNETTE, SSS] SEPTAL MYOCARDIAL INFARCTION , OF INDETERMINATE AGE [40+ ms Q WAVE IN V1/V2] Compared to ECG 09/22/2021 16:55:09 Myocardial infarct finding now present Ectopic atrial rhythm no longer present Intraventricular conduction delay no longer present Electronically Signed On 10-27-2023 6:04:11 SLASHER TENDER HELPER by Devi Ragland M.D. [id number]
--- NOTE | 2023-10-26 10:49 | XR_ITS ---
WS: [id number] Portable AP supine chest, 10/26/2023 Clinical Data: dyspnea Comparison: Two-view chest, 09/27/2021 Findings: No nodules, masses or effusions are seen. The heart is slightly enlarged. The pulmonary vas cularity is not increased. No pneumonia or pneumothorax is seen. Monitor leads are on the chest wall. The aortic arch and descending thoracic aorta are tortuous. Impression: Cardiomegaly and atherosclerosis.
--- NOTE | 2023-10-26 10:49 | CT_ITS ---
WS: [id number] CT HEAD TECHNIQUE: Noncontrast CT of the head obtained from the skullbase to the vertex. CLINICAL INFORMATION: Symptoms of acute stroke COMPARISON: CT 09/22/2021 DLP: 1070 mgy/cm All CT scans at [facility] use at least one of these dose optimization techniques: automated e xposure control; mA and/or kV adjustment per patient size (includes targeted exams where dose is matc hed to clinical indication); or iterative reconstruction. FINDINGS: No evidence of intracranial hemorrhage or mass effect. Ventricular system and basal cisterns are pat nt. Moderate small vessel changes with moderate parenchymal volume loss worse in the frontal lobes. C hronic infarct with encephalomalacia in the LEFT frontal lobe laterally. Dense focus of calcification in the LEFT mid MCA appears new from 2020. This could be further evaluat ed with CTA. Intracranial vascular calcification. Paranasal sinuses and mastoid air cells are well aerated. .Normal visualized soft tissues. IMPRESSION: 1. No evidence of intracranial hemorrhage or mass effect. 2. Dense focal calcification in the LEFT mid MCA. This can be further evaluated with CTA. 3. Moderate small vessel changes with moderate parenchymal volume loss worse in the frontal lobes. 4. Chronic infarct with encephalomalacia in the LEFT frontal lobe unchanged from previous Notified Redd Root DO at 10/26/2023 11:06 AM.
--- NOTE | 2023-10-26 10:51 | ED_ITS ---
HPI - Neuro Symptoms/Deficit 2 General: Chief Complaint: Neuro Symptoms/Deficit Stated Complaint: STROKE LIKE SYMPTOMS Time Seen by Provider: 10/26/23 10:49 Source: patient Mode of arrival: EMS History of Present Illness: 83-year-old female found down at home wi th severe right-sided weakness unable to speak clearly has a receptive aphasia as well weakness facial drooping. Her last known well was approximately 3 hours ago. Family is able to set the timeframe based on that she recorded her insulin at home additionally she had gotten her grandchildren off to school this morning Time: 11:00 Last Observed Normal: 09:00 Timing confirmed by: family member Location: speech, right face, right arm, right leg, ataxia and altered Severity: severe Quality: weak and constant Relieving factors: none Exacerbating factors: none Context: sudden onset and found down Treatments Prior to Arrival: none Review of Systems 2 General: Reports: ROS unobtainable due to mental status PFSH ED 2 PFSH: Medical History Cellulitis Heart murmur, systolic Diabetic foot Atherosclerosis Vasovagal episode Chemical induced allergic contact dermatitis Chronic low back pain Osteoarthritis (arthritis due to wear and tear of joints) Polyarthralgia Thyroid nodule Leg swelling Venous stasis dermatitis Vaginal candidiasis Vitamin D deficiency Medication refill Lower extremity edema Environmental and seasonal allergies Chronic GERD Diabetes Noncompliance Asymptomatic bilateral carotid artery stenosis Dyslipidemia Hypothyroidism (acquired) Essential hypertension Adult onset hypothyroidism Enrolled in chronic care management Surgical History H/O thyroidectomy History of cholecystectomy Family History Father CAD (coronary artery disease), Onset Age: 56 [place] Mother Diabetes Stroke Family/Other Cancer Brother Lung disease Other Hypertension Denies family history of Clotting disorder Dementia Chronic kidney disease (CKD) Suicide Anesthesia complication Bleeding disorder Social History Smoking and tobacco/nicotine status: never used tobacco/nicotine Second hand smoke exposure: No Alcohol intake: never Substance/Drug Use: never Adopted: No Caregiver/support person: No Lives independently: Yes Household members: children Housing: House Marital status: / Number of children: 4 service: No Current occupational status: retired Do you think of yourself as: Straight/Heterosexual Current gender identity: Female NIH stroke score 2 NIHSS: Level Of Consciousness - 1a: 3 Level Of Consciousness Questions - 1b: Neither Correct Level Of Consciousness Commands - 1c: Neither Correct Best Gaze - 2: Forced Deviation Visual Faustin - 3: Complete Hemianopia F acial Palsy - 4: Partial Paralysis Motor Arm Right - 5: No Effort Against Commerce Motor Arm Left - 5: No Drift Motor Leg Right - 6: No Effort Against Commerce Motor Leg Left - 6: No Drift Limb Ataxia - 7: Present In Two Limbs Sensory - 8: Mild To Moderate Loss Best Language - 9: Mute; Global Aphasia Dysarthia - 10: Severe Dysarthia Extinction And Inattention - 11: 2 Score: Total Score: 29 Physical Exam 2 HENMT: COMMON NORMALS: normocephalic, atraumatic and hearing grossly normal bilaterally HEAD & SCALP: normocephalic and atraumatic Resp: COMMON NORMALS: normal respiratory effort, No retractions, No use of accessory muscles and clear to auscultation bilaterally AUSCULTATION: clear to auscultation bilaterally Cardio: COMMON NORMALS: regular rate, regular rhythm and No murmurs present (Cardio) RATE: regular rate RHYTHM: regular rhythm GI: COMMON NORMALS: Soft to palpation and No hepatosplenomegaly present A USCULTATION: Yes normoactive bowel sounds PALPATION: Yes Soft to palpation, No Tenderness to palpation present (GI), No Guarding due to palpation present (GI) and Yes No hepatosplenomegaly present Extremity: COMMON NORMALS: normal to inspection, capillary refill normal, no clubbing, cyanosis or edema, no calf tenderness and no pedal edema Skin: COMMON NORMALS: no rashes or lesions noted GENERAL SKIN EXAM: no rashes or lesions noted Course 2 Vital Signs: Vital signs: Vital Signs Temperature 97.7 F 10/31/23 14:42 Pulse Rate 69 10/31/23 14:42 Respiratory Rate 20 H 10/31/23 14:42 Blood Pressure 147/62 10/31/23 14:42 Pulse Oximetry 99 10/31/23 14:42 Oxygen Delivery Me thod Nasal Cannula 10/31/23 11:34 Oxygen Flow Rate 1 10/31/23 09:04 MDM - Neuro Symptoms/Deficit Medical Decision Making Stroke score of 29 discussed risks and benefits of the family she is nearing the timeframe window for TNKase they wish to go ahead understanding the risk for bleeding. CTA of the head and neck after shows a stenotic area but radiologist did not feel there is any embolism to retrieve additionally there is already some subacute ischemic changes with contrast present. Admit to ICU. Differential Diagnosis Likely cerebrovascular accident Medical Records I reviewed the patient's medical records. Lab Data I reviewed the patient's lab results. 10/31/23 08:05 10/31/23 05:53 Radiology Impressions Shoulder X-Ray 10/27/23 10:56 IMPRESSION: No acute findings. Head CT 10/28/23 12:00 IMPRESSION: 1. Evolving subacute infarct in the left MCA territory. 2. Trace irregular high attenuation in the left frontal lobe similar to the finding on 10/27/2023. Possible trace hemorrhage or occluded vessel. 3. Calcifications in the proximal left middle cerebral artery and in the left frontal lobe adjacent to the aforementioned focus of irregular high attenuation. Possible calcified arterial emboli. 4. Cerebral volume loss with mildly increased mass effect related to the left MCA territory infarct. Stable 2 mm rightward subfalcine midline shift. Mildly progressive partial effacement of the left lateral ventricle. Venous Duplex 10/28/23 18:07 IMPRESSION: Venous thrombosis in the veins of the superficial left upper extremity veins as described above. Chest X-Ray 10/29/23 01:31 IMPRESSION: Right PICC with tip in the region of the proximal subclavian vein. Recommend advancement by at least 5 cm. Laboratory Results WBC 7.27 10^3/uL (3.29-11.43) 10/26/23 11:00 RBC 3.94 10^6/uL (3.85-5.65) 10/26/23 11:00 Hgb 11.60 g/dL (11.27-16.99) 10/26/23 11:00 Hct 35.6 % (36-47) L 10/26/23 11:00 MCV 90.4 fl (85-98) 10/26/23 11:00 MCH 29.4 pg (27-33) 10/26/23 11:00 MCHC 32.6 g/dL (30-55) 10/26/23 11:00 RDW 14.0 % (12.1-15.1) 10/26/23 11:00 Plt Count 157 10^3/cmm (157-399) 10/26/23 11:00 MPV 11.6 fL (7.4-10.4) H 10/26/23 11:00 Neut % (Auto) 47.5 % 10/26/23 11:00 Lymph % (Auto) 42.1 % 10/26/23 11:00 [place] % (Auto) 6.7 % 10/26/23 11:00 Eos % (Auto) 2.9 % 10/26/23 11:00 Baso % (Auto) 0.7 % 10/26/23 11:00 Neut # (Auto) 3.45 10^3/uL (1.8-7.7) 10/26/23 11:00 Lymph # (Auto) 3.1 10^3/uL (0.8-4.8) 10/26/23 11:00 [place] # (Auto) 0.5 10^3/uL (0.2-0.9) 10/26/23 11:00 Eos # (Auto) 0.2 10^3/uL (0.0-0.8) 10/26/23 11:00 Baso # (Auto) 0.1 10^3/uL (0.0-0.1) 10/26/23 11:00 Nucleated RBC % (auto) 0 % 10/26/23 11:00 Nucleated RBCs # 0.0 /100WBC 10/26/23 11:00 PT 14.50 SECONDS (12.1-14.9) 10/26/23 11:00 INR 1.09 (0.8-1.2) 10/26/23 11:00 APTT 22.8 SECONDS (23.9-36.7) L 10/26/23 11:00 Sodium 131 mmol/L (136-145) L 10/26/23 12:08 Potassium 5.4 mmol/L (3.5-5.1) H 10/26/23 12:08 Chloride 96 mmol/L (98-107) L 10/26/23 12:08 Carbon Dioxide 24 mmol/L (22-29) 10/26/23 12:08 Anion Gap 16.4 (5-19) 10/26/23 12:08 BUN 27 mg/dL (8-23) H 10/26/23 12:08 Creatinine 1.1 mg/dL (0.5-0.9) H 10/26/23 12:08 GFR Calculation Not Reportable 10/26/23 12:08 Glucose 399 mg/dL (65-115) H 10/26/23 12:08 POC Glucose 384 mg/dL (70-110) H 10/26/23 10:55 Calculated Osmolality 294 mOsm/kg (285-295) 10/26/23 12:08 Calcium 9.4 mg/dL (8.5-10.5) 10/26/23 12:08 Iron 92 ug/dL (37-145) 10/26/23 12:08 TIBC 283 mcg/dl 10/26/23 12:08 % Saturation 32.5 % (20-50) 10/26/23 12:08 Unsat Iron Binding 191 ug/dL (112-347) 10/26/23 12:08 Total Bilirubin 0.5 mg/dL (0.15-1.2) 10/26/23 12:08 AST 27 U/L (0-32) 10/26/23 12:08 ALT 25 U/L (0-33) 10/26/23 12:08 Alkaline Phosphatase 89 U/L (35-105) 10/26/23 12:08 Total Protein 6.8 g/dL (6.6-8.7) 10/26/23 12:08 Albumin 3.9 g/dL (3.5-5.2) 10/26/23 12:08 Globulin 2.9 g/dL (1.3-4.6) 10/26/23 12:08 Vitamin B12 595 pg/mL (232-1245) 10/26/23 12:08 All radiology interpretation(s) finalized by discharge Discharge Plan Discharge Patient Disposition: Admitted As Inpatient Admit Provider: Deonte Torre Clinical Impression: Acute ischemic left MCA stroke, Diabetes Condition: Stable Discharge Diet: As Directed Discharge Activity: As per PT/OT instructions Coding Level of Care Code ED Bowling Alley Mechanic for Cheryle Russell
[2023-10-26 10:58] LABS: Glucose Point of Care 384 mg/dL (70-110)
[2023-10-26] MEDS: tenecteplase 50mg Kit (STROKE) 19 MG IVP (11:05)
--- NOTE | 2023-10-26 11:11 | CT_ITS ---
WS: [id number] CTA HEAD AND NECK TECHNIQUE: Contrast enhanced CTA of the head and neck with coronal and sagittal reformatted images an d maximum intensity projection (MIP) images. NASCET criteria utilized. CLINICAL INFORMATION: cva COMPARISON: CTA 2019 DLP: 480.[address] scans at [facility] use at least one of these dose optimization techniques: automated e xposure control; mA and/or kV adjustment per patient size (includes targeted exams where dose is matc hed to clinical indication); or iterative reconstruction. FINDINGS: RIGHT: Right common carotid artery is patent. Moderate atheromatous disease right carotid bulb exte nding into the ICA with right proximal ICA stenosis measuring approximately 60 to 70%. Right ICA is p atent to the skull base. LEFT: Left common carotid artery is patent. No significant left ICA stenosis. Left ICA is patent to the skull base. Prior postoperative changes LEFT carotid endarterectomy. No recurrent stenosis. INTRACRANIAL CTA: Densely calcified cavernous carotid arteries and supraclinoid ICAs bilaterally with moderate stenosis . Patent anterior communicating artery. Dense focus of calcification in the LEFT mid MCA with moderat e to severe stenosis. Distal vessel remains patent. Significant decreased vascularity to the second a nd third order MCA branches with suggestion of developing low-attenuation change in the LEFT frontal and parietal lobes and temporal lobe MCA territory. Vertebral arteries are patent. Basilar artery is patent. Normal vascularity to the [employer] territory bila terally. IMPRESSION: 1. Focal calcification in the LEFT mid M1 segment with moderate to severe stenosis. Distal vessel re luis patent. However significant decreased vascularity to the second and third order branches MCA te rritory 2. Suspected developing subacute ischemia LEFT MCA territory. 3. Intracranial CTA otherwise patent. 4. Approximately 60 to 70% RIGHT proximal ICA stenosis. RIGHT ICA is patent to the skull base. 5. Prior LEFT carotid endarterectomy. No significant stenosis. Notified Redd Root DO at 10/26/2023 12:04 PM.
[2023-10-26 11:16] LABS: Basophils # 0.1 10^3/uL (0.0-0.1); Basophils % 0.7 %; Eosinophils # 0.2 10^3/uL (0.0-0.8); Eosinophils % 2.9 %; Hematocrit 35.6 % (36-47); Lymphocytes # 3.1 10^3/uL (0.8-4.8); Lymphocytes % 42.1 %; Mean Corpuscular HGB Conc 32.6 g/dL (30-55); Mean Corpuscular Hemoglobin 29.4 pg (27-33); Mean Corpuscular Volume 90.4 fl (85-98); Mean Platelet Volume 11.6 fL (7.4-10.4); Monocytes # 0.5 10^3/uL (0.2-0.9); Monocytes % 6.7 %; Neutrophils # 3.45 10^3/uL (1.8-7.7); Neutrophils % 47.5 %; Nucleated Red Blood Cells % 0 %; Platelet Count 157 10^3/cmm (157-399); Red Blood Count 3.94 10^6/uL (3.85-5.65); White Blood Count 7.27 10^3/uL (3.29-11.43)
--- NOTE | 2023-10-26 11:24 | P.CONIM_ITS ---
Providers/Reason For Consult 2 Consulting Physician/Specialty*: aMrko Perez MD neurology and epilepsy Reason for Consult*: Code stroke emergency department room 11 Code stroke alert initiated at 10:33 AM Patient arrived at [facility] emergency department at 10:48 AM Patient transferred to CT scanner on arrival at 10:48 AM Neurology assessment at bedside performed at 10:54 AM Tenecteplase given intravenously at 11:08 AM NIH score =24 Blood glucose =384 in emergency department Accu-Chek = 184 reported by family member at patient's home Primary Care Provider: VERONICA Ram History of Present Illness History of Present Illness Christina Julien is a 83 year old female with a history of remote left frontal lobe infarction with encephalomalacia, chronic cortical atrophy, insulin requiring type 2 diabetes mellitus, hypothyroidism, hypertension, obstructive sleep apnea, venous stasis dermatitis, thyroid nodule, polyarthralgia, abdominal hernia and questionable abdominal aneurysm. The patient was reported to be in her usual state of health. But on 10/26/2023 the patient was reported to be found down at 9:45 AM on 10/26/2023. Patient's last known well (LKW) was 7:30 AM on 10/26/2023. According to the family, the patient checked her blood sugar this morning on 10/26/2023 and it was reported by the family needs to be 184 and the patient self-administered her subcutaneous insulin injection. The patient was brought to [facility] emergency room via EMS secondary to acute on onset of right- sided paralysis, left gaze preference and inability to speak. NIH score = 29 by ER physician and NIH score = 24 by neurology evaluation at the bedside and emergency department bed #11. following the stat noncontrast head CT was performed. Stat noncontrast head CT was obtained and revealed No evidence of intracranial hemorrhage or mass effect. Dense focal calcification in the LEFT mid MCA. This can be further evaluated with CTA. Moderate small vessel changes with moderate parenchymal volume loss worse in the frontal lobes. Chronic infarct with encephalomalacia in the LEFT frontal lobe unchanged from previous. The family was contacted via phone and 1 family member arrived in person to give consent for intravenous tenecteplase (TNKase). Intravenous tenecteplase was administered at 11:05 AM on 10/26/2023. The patient tolerated the tenecteplase bolus without issues. In view of the patient's clinical findings of the left MCA distribution stroke, she was sent back to the CT scanner for CT angiogram of the head and neck as well as CT of the chest since there was reports of a questionable aortic aneurysm, per patient's family history given in the ER today in room # 11. The results of the CT angiograms were not available for review at the time of this dictation. The patient will be transferred to the intensive care unit per NIH stroke protocol and post tenecteplase administration. Drug allergies: Clindamycin which resulted in a rash Penicillins which resulted in a rash Sulfonamide antibiotics which resulted in tongue, lip and throat swelling Tetracycline which resulted in tongue lip and throat swelling Jardiance which resulted in abdominal pain Januvia which resulted in abdominal pain Home medications: Norvasc 5 mg p.o. daily Tylenol 1000 mg p.o. every 6 hours as needed pain Aspirin 81 mg p.o. daily Lipitor 40 mg p.o. q. evening Calcium with vitamin D3 600 mg / 12.5 mcg p.o. daily Zyrtec 10 mg p.o. daily as Pepcid 20 mg p.o. twice daily Lasix 20 mg p.o. twice daily Guaifenesin extended release 600 mg every 12 hours as needed Insulin 100 units subcutaneously Detemir insulin 100 units per 3 mL 50 units subcutaneously twice daily Ketoconazole 2% topical cream to be applied twice a day as needed Synthroid 88 mcg p.o. daily Lisinopril 40 mg p.o. daily Mupirocin 2% topical ointment twice a day Nitroglycerin 0.4 mg tablets sublingual every 5 minutes as needed for chest pain Nystatin 100,000 units/g topical powder applied topically 3 times a day as needed [place]-3 fatty acid 1000 mg p.o. daily Oxybutynin ER 15 mg p.o. daily Potassium chloride 20 mEq p.o. daily Triamcinolone 0.1% topical cream to be applied daily Past medical history: Hypothyroid Type 2 diabetes mellitus, insulin requiring Sleep apnea Obesity Old left frontal lobe infarction with encephalomalacia changes Venous stasis dermatitis Habits: None Review of Systems 2 General: Reports: 10 or more systems reviewed and unremarkable except in HPI and below Neuro: Reports: weakness in extremities, lack of coordination, difficulty walking, Slurred speech present and difficulty communicating thoughts Medications/Allergies Home Medications Medication Instructions Recorded Confirmed Last Taken Type Diabetic shoes with 3 inserts #1 ea 04/12/21 10/26/23 Unknown Rx Diabetic shoes #1 ea 05/06/21 10/26/23 Unknown Rx nitroglycerin 0.4 mg sublingual 0.4 mg sublingual Q5M PRN chest 12/22/21 10/26/23 Unknown Rx tablet pain #25 tabs adult protective underwear #1 ea 04/27/22 10/26/23 Unknown Rx pen needle, diabetic 31 gauge x #200 ea 10/23/22 10/26/23 Unknown Rx 3/16 (Comfort EZ Pen [place]) adult protective large underwear #1 ea 10/31/22 10/26/23 Unknown Rx acetaminophen 500 mg capsule 1,000 mg PO Q6H PRN Pain 02/12/23 10/26/23 Unknown History aspirin 81 mg tablet,delayed 81 mg PO DAILY 02/12/23 10/26/23 Unknown History release ascorbic acid (vitamin C) 1,000 mg 500 mg (1/2 x 1,000 mg) PO DAILY 02/16/23 10/26/23 Unknown Rx tablet 30 days #30 tabs diabetic shoes with 3 inserts #1 ea 02/27/23 10/26/23 Unknown Rx mupirocin 2 % topical ointment 1 applic topical BID #22 grams 07/26/23 10/26/23 Unknown Rx furosemide 20 mg tablet 20 mg PO BID 30 days #60 tabs 08/14/23 10/26/23 Unknown Rx potassium chloride 20 mEq 20 meq PO DAILY #30 tabs 08/14/23 10/26/23 Unknown Rx tablet,extended release amlodipine 5 mg tablet 5 mg PO DAILY #90 tabs 08/16/23 10/26/23 Unknown Rx atorvastatin 40 mg tablet 40 mg PO DAILY 30 days #30 tabs 08/16/23 10/26/23 Unknown Rx blood sugar diagnostic (Blood #200 ea 08/16/23 10/26/23 Unknown Rx Glucose Test strips) calcium carbonate 600 mg-vitamin 1 cap PO DAILY 30 days #30 caps 08/16/23 10/26/23 Unknown Rx D3 12.5 mcg (500 unit) capsule (Calcium 600 with Vitamin D3) cetirizine 10 mg tablet (Zyrtec) 10 mg PO DAILY 30 days #30 tabs 08/16/23 10/26/23 Unknown Rx famotidine 20 mg tablet 20 mg PO BID 30 days #60 tabs 08/16/23 10/26/23 Unknown Rx guaifenesin 600 mg tablet, 600 mg PO Q12H PRN congestion 30 08/16/23 10/26/23 Unknown Rx extended release 12 hr (Mucinex) days #60 tabs insulin aspart U-100 100 unit/mL See Rx Instructions SUBCUT TID 30 08/16/23 10/26/23 Unknown Rx subcutaneous cartridge (Novolog days #3 ea PenFill U-100 Insulin aspart) insulin detemir U-100 100 unit/mL 50 unit (0.5 mL) SUBCUT BID 30 08/16/23 10/26/23 Unknown Rx (3 mL) subcutaneous pen days #30 mL ketoconazole 2 % topical cream 1 applic topical BID PRN rash #15 08/16/23 10/26/23 Unknown Rx grams lancets 31 gauge #200 ea 08/16/23 10/26/23 Unknown Rx levothyroxine 88 mcg tablet 88 mcg PO DAILY #30 tabs 08/16/23 10/26/23 Unknown Rx lisinopril 40 mg tablet 40 mg PO DAILY #90 tabs 08/16/23 10/26/23 Unknown Rx nystatin 100,000 unit/gram topical 1 applic topical BID PRN rash #30 08/16/23 10/26/23 Unknown Rx ointment grams nystatin 100,000 unit/gram topical 1 applic topical TID PRN rash #60 08/16/23 10/26/23 Unknown Rx powder grams omega-3 fatty acids 1,000 mg 1,000 mg PO DAILY 30 days #30 caps 08/16/23 10/26/23 Unknown Rx capsule oxybutynin chloride 15 mg 15 mg PO DAILY 30 days #30 tabs 08/16/23 10/26/23 Unknown Rx tablet,extended release 24 hr triamcinolone acetonide 0.1 % 1 applic topical DAILY 30 days #80 08/16/23 10/26/23 Unknown Rx topical cream grams Allergies Allergy/AdvReac Type Severity Reaction Status Date / Time clindamycin Allergy ALGY-Rash Verified 09/25/23 11:02 Penicillins Allergy ALGY-Rash Verified 09/25/23 11:02 Sulfa (Sulfonamide Allergy ALGY-Swell Verified 09/25/23 11:02 Antibiotics) Lip/Tongue/Throat tetracycline Allergy ALGY-Swell Verified 09/25/23 11:02 Lip/Tongue/Throat empagliflozin AdvReac Intermediate ADR-Abdominal Verified 09/25/23 11:02 [From Jardiance] Pain sitagliptin [From Januvia] AdvReac Intermediate ADR-Abdominal Verified 09/25/23 11:02 Pain Current Medications Generic Name Dose Route Start Last Admin Trade Name Freq PRN Reason Stop Dose Admin Tenecteplase 19 mg 10/26/23 10:49 10/26/23 11:05 Tenecteplase 50mg Kit (Stroke) 0.25 mg/kg (19 mg) 19 mg IVP Administration ONCE PRN See Dose Instructions Protocol PFSH Acute 2 PFSH: Medical History Adult onset hypothyroidism Asymptomatic bilateral carotid artery stenosis Atherosclerosis Chemical induced allergic contact dermatitis Chronic GERD Chronic low back pain Diabetes Dyslipidemia Enrolled in chronic care management Environmental and seasonal allergies Essential hypertension Hypothyroidism (acquired) Leg swelling Lower extremity edema Medication refill Noncompliance Osteoarthritis (arthritis due to wear and tear of joints) Polyarthralgia Thyroid nodule Vaginal candidiasis Vasovagal episode Venous stasis dermatitis Vitamin D deficiency Surgical History H/O thyroidectomy History of cholecystectomy Family History Father CAD (coronary artery disease), Onset Age: 56 [place] Mother Diabetes Stroke Family/Other Cancer Brother Lung disease Other Hypertension Denies family history of Clotting disorder Dementia Chronic kidney disease (CKD) Suicide Anesthesia complication Bleeding disorder Social History Smoking and tobacco/nicotine status: never used tobacco/nicotine Second hand smoke exposure: No Alcohol intake: never Substance/Drug Use: never Adopted: No Caregiver/support person: No Lives independently: Yes Household members: children Housing: House Marital status: / Number of children: 4 service: No Current occupational status: retired Do you think of yourself as: Straight/Heterosexual Current gender identity: Female Vitals/I&O/Wt Last Vital Signs Temp 98.0 F 10/26/23 11:00 Pulse 89 10/26/23 11:00 Resp 18 10/26/23 11:00 BP 130/60 10/26/23 11:00 Pulse Ox 98 10/26/23 11:00 O2 Del Method Room Air 10/26/23 11:00 Weight last 48 hrs Weight 178 lb Physical Exam 2 Narrative: NIH score = 29 by ER physician at bedside NIH score = 24 by neurologist at bedside (secondary to patient being unable to answer questions or follow commands, left gaze preference, questionable right homonymous visual field deficits, right lower facial weakness, right arm and right leg paralysis, clumsiness/decreased coordination in the right arm and right leg, inability to speak, severe dysarthria, right-sided neglect) Blood pressure 130/60 heart rate 89 respirations 18 The patient is alert but nonverbal. She has severe dysarthria and unable to speak. Pupils 4 mm round reactive to light and accommodation. Extraocular movements revealed left gaze preference. There was right lower facial weakness. Motor testing revealed right upper and right lower extremity paralysis. Deep tendon reflexes revealed 1+ in the upper extremities and trace in the lower extremities with extensor plantar response on the right. There was no clonus. Sensory examination revealed neglect on the right side of her body. There was lack of coordination and secondary to paralysis of the right arm and right leg. Throat clear. Lungs clear. Heart regular rhythm and rate. Extremities revealed venous stasis dermatitis and edema in the lower extremities. Data 10/26/23 11:00 10/26/23 11:00 A&P Assessment and plan (1) Acute ischemic left MCA stroke: Impression: 1. Acute large MCA distribution stroke manifested as nonfluent aphasia, left gaze preference, and right-sided paralysis 2. Administration of tenecteplase (TNKase) on 10/26/2023 at 11:05 AM without acute complications 3. Remote left frontal lobe infarction with encephalomalacia 4. Insulin requiring type 2 diabetes mellitus 5. Sleep apnea 6. Obesity 7. Venous stasis dermatitis 8. Abdominal hernia 9. History of questionable aortic aneurysm, per patient's family report 10. Hypothyroidism 11. Hypertension Plan: 1. Follow NIH stroke protocol and post tenecteplase administration/intensive care unit treatment 2. Patient will be transferred to intensive care unit 3. Agree with obtaining CT angiogram of head and neck and chest to assess for large vessel ICA stenosis/occlusion in the left MCA territory and assess for aortic aneurysm 4. Repeat noncontrast head CT 24 hours post tenecteplase administration(tenecteplase given at 11:05 AM on 10/26/2023) 5. Resume Lipitor and aspirin 24 hours post tenecteplase administered 6. Recommend increasing aspirin to 325 mg p.o. every morning with food and 24- hour post tenecteplase administration 7. Continue neurochecks and vitals per NIH stroke protocol in post thrombolytics (tenecteplase) administration 8. Recommend obtaining occupational therapy, physical therapy and speech therapy consults to assess nonfluent aphasia, and right-sided paralysis (2) Thrombolytic medication administered within last 5 days: Consult Attestations 2 Medical Necessity Statement: The patient was evaluated by neurology for critical care acute large MCA distribution stroke on 10/26/2023 and tenecteplase administration on 10/26/2023. Coding Level of Care Code 13404 Diagnoses Acute ischemic left MCA stroke I63.512 Thrombolytic medication administered within last 5 days Z78.9 Time Spent (min) 30
[2023-10-26 11:28] LABS: INR 1.09 (0.8-1.2); Partial Thromboplastin Time 22.8 SECONDS (23.9-36.7)
[2023-10-26] MEDS: iohexol 350 mg/mL 500 mL Btl (per mL) IV (11:36)
--- NOTE | 2023-10-26 12:19 | PM.HP ---
Providers/Chief Complaint Primary Care Provider: VERONICA Ram Chief Complaint: STROKE LIKE SYMPTOMS History of Present Illness Christina Julien is a 83 year old female with past medical history of type 2 diabetes mellitus, hypertension, hyperlipidemia, hypothyroidism, obstructive sleep apnea, CAD, noncompliance, history of lower limb cellulitis and diabetic foot who was brought into the ER today because of symptoms concerning for stroke. As per the history patient was found down at her home by her brother who called EMS at 9:45 AM. Patient's last known well was 7:30 AM. Patient was seen in the ER was found to have NIH score of 29 with dense right-sided paralysis, left-sided gaze preference and inability to speak. Review of Systems General: Reports: ROS unobtainable due to mental status Medications/Allergies Home Medications Medication Instructions Recorded Confirmed Last Taken Type Diabetic shoes with 3 inserts #1 ea 04/12/21 10/26/23 Unknown Rx Diabetic shoes #1 ea 05/06/21 10/26/23 Unknown Rx nitroglycerin 0.4 mg sublingual 0.4 mg sublingual Q5M PRN chest 12/22/21 10/26/23 Unknown Rx tablet pain #25 tabs adult protective underwear #1 ea 04/27/22 10/26/23 Unknown Rx pen needle, diabetic 31 gauge x #200 ea 10/23/22 10/26/23 Unknown Rx 3/16 (Comfort EZ Pen [employer]icks) adult protective large underwear #1 ea 10/31/22 10/26/23 Unknown Rx acetaminophen 500 mg capsule 1,000 mg PO Q6H PRN Pain 02/12/23 10/26/23 Unknown History aspirin 81 mg tablet,delayed 81 mg PO DAILY 02/12/23 10/26/23 Unknown History release ascorbic acid (vitamin C) 1,000 mg 500 mg (1/2 x 1,000 mg) PO DAILY 02/16/23 10/26/23 Unknown Rx tablet 30 days #30 tabs diabetic shoes with 3 inserts #1 ea 02/27/23 10/26/23 Unknown Rx mupirocin 2 % topical ointment 1 applic topical BID #22 grams 07/26/23 10/26/23 Unknown Rx furosemide 20 mg tablet 20 mg PO BID 30 days #60 tabs 08/14/23 10/26/23 Unknown Rx potassium chloride 20 mEq 20 meq PO DAILY #30 tabs 08/14/23 10/26/23 Unknown Rx tablet,extended release amlodipine 5 mg tablet 5 mg PO DAILY #90 tabs 08/16/23 10/26/23 Unknown Rx atorvastatin 40 mg tablet 40 mg PO DAILY 30 days #30 tabs 08/16/23 10/26/23 Unknown Rx blood sugar diagnostic (Blood #200 ea 08/16/23 10/26/23 Unknown Rx Glucose Test strips) calcium carbonate 600 mg-vitamin 1 cap PO DAILY 30 days #30 caps 08/16/23 10/26/23 Unknown Rx D3 12.5 mcg (500 unit) capsule (Calcium 600 with Vitamin D3) cetirizine 10 mg tablet (Zyrtec) 10 mg PO DAILY 30 days #30 tabs 08/16/23 10/26/23 Unknown Rx famotidine 20 mg tablet 20 mg PO BID 30 days #60 tabs 08/16/23 10/26/23 Unknown Rx guaifenesin 600 mg tablet, 600 mg PO Q12H PRN congestion 30 08/16/23 10/26/23 Unknown Rx extended release 12 hr (Mucinex) days #60 tabs insulin aspart U-100 100 unit/mL See Rx Instructions SUBCUT TID 30 08/16/23 10/26/23 Unknown Rx subcutaneous cartridge (Novolog days #3 ea PenFill U-100 Insulin aspart) insulin detemir U-100 100 unit/mL 50 unit (0.5 mL) SUBCUT BID 30 08/16/23 10/26/23 Unknown Rx (3 mL) subcutaneous pen days #30 mL ketoconazole 2 % topical cream 1 applic topical BID PRN rash #15 08/16/23 10/26/23 Unknown Rx grams lancets 31 gauge #200 ea 08/16/23 10/26/23 Unknown Rx levothyroxine 88 mcg tablet 88 mcg PO DAILY #30 tabs 08/16/23 10/26/23 Unknown Rx lisinopril 40 mg tablet 40 mg PO DAILY #90 tabs 08/16/23 10/26/23 Unknown Rx nystatin 100,000 unit/gram topical 1 applic topical BID PRN rash #30 08/16/23 10/26/23 Unknown Rx ointment grams nystatin 100,000 unit/gram topical 1 applic topical TID PRN rash #60 08/16/23 10/26/23 Unknown Rx powder grams omega-3 fatty acids 1,000 mg 1,000 mg PO DAILY 30 days #30 caps 08/16/23 10/26/23 Unknown Rx capsule oxybutynin chloride 15 mg 15 mg PO DAILY 30 days #30 tabs 08/16/23 10/26/23 Unknown Rx tablet,extended release 24 hr triamcinolone acetonide 0.1 % 1 applic topical DAILY 30 days #80 08/16/23 10/26/23 Unknown Rx topical cream grams Allergies Allergy/AdvReac Type Severity Reaction Status Date / Time clindamycin Allergy ALGY-Rash Verified 09/25/23 11:02 Penicillins Allergy ALGY-Rash Verified 09/25/23 11:02 Sulfa (Sulfonamide Allergy ALGY-Swell Verified 09/25/23 11:02 Antibiotics) Lip/Tongue/Throat tetracycline Allergy ALGY-Swell Verified 09/25/23 11:02 Lip/Tongue/Throat empagliflozin AdvReac Intermediate ADR-Abdominal Verified 09/25/23 11:02 [From Jardiance] Pain sitagliptin [From Januvia] AdvReac Intermediate ADR-Abdominal Verified 09/25/23 11:02 Pain PFSH Acute PFSH: Medical History (Updated 10/26/23 @ 16:46 by Deonte Torre MD) Cellulitis Heart murmur, systolic Diabetic foot Atherosclerosis Vasovagal episode Chemical induced allergic contact dermatitis Chronic low back pain Osteoarthritis (arthritis due to wear and tear of joints) Polyarthralgia Thyroid nodule Leg swelling Venous stasis dermatitis Vaginal candidiasis Vitamin D deficiency Medication refill Lower extremity edema Environmental and seasonal allergies Chronic GERD Diabetes Noncompliance Asymptomatic bilateral carotid artery stenosis Dyslipidemia Hypothyroidism (acquired) Essential hypertension Adult onset hypothyroidism Enrolled in chronic care management Surgical History H/O thyroidectomy History of cholecystectomy Family History Father CAD (coronary artery disease), Onset Age: 56 [place] Mother Diabetes Stroke Family/Other Cancer Brother Lung disease Other Hypertension Denies family history of Clotting disorder Dementia Chronic kidney disease (CKD) Suicide Anesthesia complication Bleeding disorder Social History Smoking and tobacco/nicotine status: never used tobacco/nicotine Second hand smoke exposure: No Alcohol intake: never Substance/Drug Use: never Adopted: No Caregiver/support person: No Lives independently: Yes Household members: children Housing: House Marital status: / Number of children: 4 service: No Current occupational status: retired Do you think of yourself as: Straight/Heterosexual Current gender identity: Female Vitals/I&O/Wt Last Vital Signs Temp 98.0 F 10/26/23 11:00 Pulse 94 10/26/23 12:00 Resp 15 10/26/23 12:00 BP 145/53 10/26/23 12:00 Pulse Ox 97 10/26/23 12:00 O2 Del Method Room Air 10/26/23 11:45 Weight last 48 hrs Weight 80.739 kg Physical Exam Narrative: General: No acute distress, unable to sense orientation, patient if not able to speak but following in the room with eyes occasionally, sleeping on entering the room but wakes up with switching of light, pupils bilaterally equal and reactive HEENT: PERRLA, pupils bilaterally equal and reactive Chest: Normal vesicular breath sounds, no added sounds, equal good air entry bilaterally CVS: S1-S2 regular, no murmurs, no tachycardia, no gallops, no rubs Abdomen: Soft, nontender, no organomegaly, bowel sounds present Neuro: No focal deficits, no facial deformity, right-sided upper and lower limb weakness Data 10/26/23 11:00 10/26/23 12:08 Other Imaging: Radiologist's impression: CTA head and neck: IMPRESSION: 1. Focal calcification in the LEFT mid M1 segment with moderate to severe stenosis. Distal vessel remains patent. However significant decreased vascularity to the second and third order branches MCA territory 2. Suspected developing subacute ischemia LEFT MCA territory. 3. Intracranial CTA otherwise patent. 4. Approximately 60 to 70% RIGHT proximal ICA stenosis. RIGHT ICA is patent to the skull base. 5. Prior LEFT carotid endarterectomy. No significant stenosis. CT Head: Radiologist's impression: IMPRESSION: 1. No evidence of intracranial hemorrhage or mass effect. 2. Dense focal calcification in the LEFT mid MCA. This can be further evaluated with CTA. 3. Moderate small vessel changes with moderate parenchymal volume loss worse in the frontal lobes. 4. Chronic infarct with encephalomalacia in the LEFT frontal lobe unchanged from previous A&P Assessment and plan (1) Acute ischemic left MCA stroke: Post thrombolytics. Appreciate nephrology recommendations. Appreciate CTA head and neck results. Patient consider not candidate for embolectomy as per neurology. Check echocardiogram. Hold off on antihypertensives. Permissible hypertension. Goal MAP 65 mmhg. Blood pressure is currently soft. IV fluids with normal saline at 75 cc/h. Fluid 1 L bolus. If not able to maintain was started Levophed. Appreciate recent A1c, lipid panel. Aspirin 300 mg per rectal daily from tomorrow, atorvastatin when able to take orally. PT/OT/speech evaluation. N.p.o. for now. Plan for CT head without contrast in 24 hours after thrombolytics. (2) Thrombolytic medication administered within last 5 days: Monitor in ICU. Hold off on anticoagulation, DVT medical prophylaxis, aspirin for now. Hold off on Hood catheter. (3) Hyperkalemia: D50/10 units insulin. Repeat BMP in 4 hours. (4) Hyponatremia: Most likely pseudohyponatremia in setting of hyperglycemia. Normal saline as above. Repeat BMP as above. (5) Acute kidney injury: Dehydration along with diabetic nephropathy. Fluid as above. Monitor BMP daily. No concerns for metabolic acidosis for now. (6) Diabetes: Recent A1c more than 9. Insulin sliding scale at moderate dose protocol every 6 hourly. Glargine 50 units at bedtime. Patient takes glargine 50 units twice daily along with sliding scale. 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 If not able to take orally will plan for transition to IV in next 72 hours. (8) Essential hypertension: Goal blood pressure is above. Hold off on antihypertensives. (9) Noncompliance: Plan Obstructive sleep apnea: Will confirm if patient uses CPAP. If does well continue nightly. CODE STATUS: Discussed with sister at bedside. For now we will remain full code. Patient's daughter is DPOA is not at bedside. Will discuss discharge plan further goals of care with daughter once available. NPO. Protonix for PUD prophylaxis SCDs for DVT prophylaxis. Discharge plan: Will depend on further clinical improvement. Will await PT evaluation. Patient might need PEG tube placement and SNF placement depending on further goals of care discussions. Attestations Medical Necessity Statement*: Admission for more than 2 midnights for management of acute dense left MCA stroke, post thrombolysis monitoring of vitals, safe disposition is sought Diagnoses Acute ischemic left MCA stroke I63.512 Thrombolytic medication administered within last 5 days Z78.9 Hyperkalemia E87.5 Hyponatremia E87.1 Acute kidney injury N17.9 Type 2 diabetes mellitus with other specified complication, with long-term current use of insulin E11.69; Z79.4 Diabetes mellitus complication status: with other specified complication Diabetes mellitus [facility] 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
[2023-10-26 12:33] LABS: Alanine Aminotransferase 25 U/L (0-33); Albumin Level 3.9 g/dL (3.5-5.2); Alkaline Phosphatase 89 U/L (35-105); Anion Gap 16.4 (5-19); Aspartate Amino Transferase 27 U/L (0-32); Blood Urea Nitrogen 27 mg/dL (8-23); Calcium 9.4 mg/dL (8.5-10.5); Carbon Dioxide 24 mmol/L (22-29); Chloride 96 mmol/L (98-107); Creatinine Clr Calc Pharmacy 37.0968; Globulin 2.9 g/dL (1.3-4.6); Glucose 399 mg/dL (65-115); Osmolality Calculated 294 mOsm/kg (285-295); Potassium 5.4 mmol/L (3.5-5.1); Sodium 131 mmol/L (136-145); Total Bilirubin 0.5 mg/dL (0.15-1.2); Total Protein 6.8 g/dL (6.6-8.7)
[2023-10-26] MEDS: sodium chloride 0.9% 1,000 ML 50 ML IV (13:47)
[2023-10-26 13:49] LABS: Glucose Point of Care 372 mg/dL (70-110)
[2023-10-26] MEDS: pantoprazole 40 mg SDV IVP (13:49)
[2023-10-26 13:55] LABS: Iron 92 ug/dL (37-145); Percent Saturation 32.5 % (20-50); Total Iron Binding Capacity 283 mcg/dl; Unsaturated Iron Binding 191 ug/dL (112-347)
[2023-10-26] MEDS: insulin lispro 100 unit/1 mL SUBCUT ×2 (13:55→18:39)
[2023-10-26 14:12] LABS: Vitamin B12 595 pg/mL (232-1245)
[2023-10-26] MEDS: insulin regular-human 10 UNIT in SYRINGE 1 EACH IVP (14:51)
[2023-10-26] MEDS: dextrose 50% syringe 50 mL IVP (14:51)
[2023-10-26] MEDS: norepinephrine 4 MG/250 ML BAG 7.5 MG IV (17:07)
[2023-10-26] MEDS: meropenem 1,000 MG in sodium chloride 0.9% (plus) 50 ML 100 MG IV (17:09)
[2023-10-26 18:34] LABS: Glucose Point of Care 309 mg/dL (70-110)
[2023-10-26] MEDS: insulin glargine 100 units/1 mL 50 UNIT SUBCUT (20:54)
[2023-10-26 20:58] LABS: Glucose Point of Care 274 mg/dL (70-110)
[2023-10-27] VITALS (35 sets, daily range): BP systolic 105–156; BP diastolic 30–71; PULSE 61–88; RESP 13–22; TEMP 36.2–36.4; O2SAT 93–100
[2023-10-27] MEDS: meropenem 1,000 MG in sodium chloride 0.9% (plus) 50 ML 100 MG IV ×3 (01:09→17:50)
[2023-10-27 01:17] LABS: Glucose Point of Care 202 mg/dL (70-110)
[2023-10-27] MEDS: insulin lispro 100 unit/1 mL SUBCUT (01:18)
[2023-10-27 04:35] LABS: Basophils % 0.3 %; Eosinophils # 0.1 10^3/uL (0.0-0.8); Eosinophils % 0.9 %; Hematocrit 33.8 % (36-47); Lymphocytes # 4.7 10^3/uL (0.8-4.8); Lymphocytes % 36.7 %; Mean Corpuscular HGB Conc 32.2 g/dL (30-55); Mean Corpuscular Hemoglobin 29.5 pg (27-33); Mean Corpuscular Volume 91.4 fl (85-98); Mean Platelet Volume 11.2 fL (7.4-10.4); Monocytes # 1.1 10^3/uL (0.2-0.9); Monocytes % 8.4 %; Neutrophils # 6.83 10^3/uL (1.8-7.7); Neutrophils % 53.5 %; Nucleated Red Blood Cells % 0 %; Platelet Count 189 10^3/cmm (157-399); White Blood Count 12.79 10^3/uL (3.29-11.43)
[2023-10-27 05:05] LABS: Alanine Aminotransferase 22 U/L (0-33); Albumin Level 3.9 g/dL (3.5-5.2); Alkaline Phosphatase 78 U/L (35-105); Anion Gap 13.6 (5-19); Aspartate Amino Transferase 28 U/L (0-32); Blood Urea Nitrogen 12 mg/dL (8-23); Calcium 9.2 mg/dL (8.5-10.5); Carbon Dioxide 25 mmol/L (22-29); Chloride 107 mmol/L (98-107); Globulin 2.5 g/dL (1.3-4.6); Glucose 130 mg/dL (65-115); Magnesium 1.7 mg/dL (1.7-2.3); Osmolality Calculated 294 mOsm/kg (285-295); Phosphorus 2.1 mg/dL (2.5-4.5); Potassium 4.6 mmol/L (3.5-5.1); Sodium 141 mmol/L (136-145); Total Bilirubin 0.6 mg/dL (0.15-1.2); Total Protein 6.4 g/dL (6.6-8.7)
--- NOTE | 2023-10-27 06:00 | USCV_ITS ---
WilyChristina Age: 83 Gender: F : 1940 Exam Date: 10/27/2023 08:27 Ordering Phys: Deonte Torre MD Technologist: Carlton Martinez Exam Location: [facility] – [place] Indication: stroke BP: 121 / 40 HR: 84 Rhythm: Sinus Technical Quality: Adequate MEASUREMENTS (Male / Female) Normal Values 2D ECHO LVOT Diameter 2.0 cm LV Ejection Fraction MOD 2C 67.4 % LV Ejection Fraction 2C AL 65.8 % LA Diameter 3.2 cm LA Width 3.2 cm LA Height 5.7 cm RA Width 3.0 cm RA Height 4.6 cm Aorta at Sinotubular Diameter 2.2 cm M-MODE Aortic Annulus Diameter 2.5 cm LA Ao Ratio MM 1.3 MV E Point Septal Separation 0.6 cm DOPPLER AV Peak Velocity 181.0 cm/s LVOT Peak Velocity 152.0 cm/s AV Area Cont Eq vti 2.3 cm squared AV Area Cont Eq pk 2.7 cm squared MV Peak Velocity 157.0 cm/s MV Area PHT 2.9 cm squared Mitral E to A Ratio 0.6 MV E' Velocity 55.0 cm/s TR Peak Velocity 177.4 cm/s TR Peak Gradient 12.6 mmHg TR Mean Velocity 128.5 cm/s TR Mean Gradient 7.2 mmHg TR Velocity Time Integral 39.2 cm Right Atrial Pressure 8.0 mmHg Pulmonary Artery Systolic Pressu 20.6 mmHg PV Peak Velocity 179.0 cm/s RV Acceleration Time 0.1 s RV Ejection Time 0.3 s RV AcT/ET 0.3 FINDINGS Left Ventricle Normal left ventricular size, systolic function and wall thickness, with no regional wall motion abnormalities. Normal left ventricular wall thickness. Grade 1 diastolic dysfunction Right Ventricle The right ventricle is normal in size and function. Right Atrium The right atrium is normal in size. Left Atrium The left atrium is normal in size. Mitral Valve Structurally normal mitral valve without significant stenosis or prolapse. There is mild mitral regurgitation. Aortic Valve Structurally normal aortic valve without significant sclerosis or stenosis. There is no aortic regurgitation. Tricuspid Valve Structurally normal tricuspid valve without significant stenosis. There is trace to mild regurgitation. Pulmonary artery systolic pressure is normal. Pulmonic Valve Structurally normal pulmonic valve without significant stenosis. There is no pulmonic regurgitation. Pericardium Normal pericardium without effusion. Aorta Normal ascending aorta dimension. IVC The inferior vena cava not visualized CONCLUSIONS Normal LV function. No significant valvular disease Bebo Preston MD (Electronically Signed) Final Date: 27 October 2023 09:57 Amended: 12 November 2023 22:16 C
[2023-10-27 06:14] LABS: Folate Level > 20.0 ng/mL (4.8-37.3)
[2023-10-27 06:32] LABS: Glucose Point of Care 129 mg/dL (70-110)
[2023-10-27 08:11] LABS: Add Urine Microscopic? NO; Charge for UA Resulting for Rev
[2023-10-27 08:25] LABS: Bilirubin Urine Neg (Negative); Blood Urine Neg (Negative); Glucose Urine UA 4+ (Normal); Ketones Urine Negative (Negative); Leukocyte Esterase Urine Negative (Negative); Nitrate Urine Negative (Negative); Protein Urine Neg (Negative); Specific Gravity, Urine 1.015 (1.005-1.030); Urine Appearance Clear (CLEAR); Urine Color Yellow (Yellow); Urobilinogen Urine Norm (Negative); pH Urine 5 (5-7)
[2023-10-27 08:33] LABS: Amphetamines Screen Urine Negative (Negative); Barbiturates Screen Urine Negative (Negative); Benzodiazepines Screen Urine Negative (Negative); Cocaine Screen Urine Negative (Negative); Opiate Screen Urine Negative (Negative); PCP Screen Urine Negative (Negative); THC Screen Urine Negative (Negative)
[2023-10-27] MEDS: sodium chloride 0.9% 1,000 ML 50 ML IV (10:42)
--- NOTE | 2023-10-27 10:56 | USR_ITS ---
PROCEDURE INFORMATION: Exam: US Duplex Right upper Extremity Veins, Limited Exam date and time: 10/27/2023 11:46 AM Age: 83 years old Clinical indication: Swelling (edema) of limb; possible dvt TECHNIQUE: Imaging protocol: Real-time duplex ultrasound of the right extremity with 2-D navarrete scale, color Doppler flow and spectral waveform analysis including responses to compression and other maneuvers (when performed) with image documentation. Limited exam was focused on the right lower extremity veins. COMPARISON: No relevant prior studies available. FINDINGS: Veins: Patent without thrombus. Normal Doppler waveforms. Normal compressibility and/or augmentation [place]. US/[place] [id number] IMPRESSION: No evidence of deep vein thrombosis.
--- NOTE | 2023-10-27 10:56 | XRR_ITS ---
PROCEDURE INFORMATION: Exam: XR Right Shoulder Exam date and time: 10/27/2023 11:25 AM Age: 83 years old Clinical indication: Swelling; Shoulder; Right TECHNIQUE: Imaging protocol: Radiologic exam of the right shoulder. Views: 1 view. COMPARISON: CT angio headneck* [id number] 10/26/2023 11:20 AM FINDINGS: Bones/joints: Single view of the shoulder without fracture or dislocation. Degenerative changes. Soft tissues: No acute findings. XR/XR shoulder RT 1V [id number] IMPRESSION: No acute findings.
--- NOTE | 2023-10-27 11:24 | P.PN_ITS ---
Subjective 2 Subjective: History of Present Illness Christina Julien is a 83 year old female with a history of remote left frontal lobe infarction with encephalomalacia, chronic cortical atrophy, insulin requiring type 2 diabetes mellitus, hypothyroidism, hypertension, obstructive sleep apnea, venous stasis dermatitis, thyroid nodule, polyarthralgia, abdominal hernia and questionable abdominal aneurysm. The patient was reported to be in her usual state of health. But on 10/26/2023 the patient was reported to be found down at 9:45 AM on 10/26/2023. Patient's last known well (LKW) was 7:30 AM on 10/26/2023. According to the family, the patient checked her blood sugar this morning on 10/26/2023 and it was reported by the family needs to be 184 and the patient self-administered her subcutaneous insulin injection. The patient was brought to [facility] emergency room via EMS secondary to acute on onset of right- sided paralysis, left gaze preference and inability to speak. NIH score = 29 by ER physician and NIH score = 24 by neurology evaluation at the bedside and emergency department bed #11. following the stat noncontrast head CT was performed. Stat noncontrast head CT was obtained and revealed No evidence of intracranial hemorrhage or mass effect. Dense focal calcification in the LEFT mid MCA. This can be further evaluated with CTA. Moderate small vessel changes with moderate parenchymal volume loss worse in the frontal lobes. Chronic infarct with encephalomalacia in the LEFT frontal lobe unchanged from previous. The family was contacted via phone and 1 family member arrived in person to give consent for intravenous tenecteplase (TNKase). Intravenous tenecteplase was administered at 11:05 AM on 10/26/2023. The patient tolerated the tenecteplase bolus without issues. In view of the patient's clinical findings of the left MCA distribution stroke, she was sent back to the CT scanner for CT angiogram of the head and neck as well as CT of the chest since there was reports of a questionable aortic aneurysm, per patient's family history given in the ER today in room # 11. The results of the CT angiograms were not available for review at the time of this dictation. The patient was transferred to the intensive care unit Bed 11 per NIH stroke protocol and post tenecteplase administration. Today on 10/27/2023 the patient remained stable. The patient is an ICU bed 11. She was easily arousable to verbal and tactile stimuli. Patient trying to cooperate. She still has a dense nonfluent aphasia with severe dysarthria but slightly improved since 10/26/2023. Patient has some slight movement of the fingers of the right hand and right toes but still has significant deficit during motor testing of the right arm and right leg with near paralysis. Extensor plantar response still observed during neurological testing in the right lower extremity. CT angiogram of the head and neck 10/26/2023 IMPRESSION: 1. Focal calcification in the LEFT mid M1 segment with moderate to severe stenosis. Distal vessel remains patent. However significant decreased vascularity to the second and third order branches MCA territory 2. Suspected developing subacute ischem ia LEFT MCA territory. 3. Intracranial CTA otherwise patent. 4. Approximately 60 to 70% RIGHT proxim al ICA stenosis. RIGHT ICA is patent to the skull base. 5. Prior LEFT carotid endarterectomy. N o significant stenosis. CT angiogram of the head and neck was reviewed with Dr. Rodriguez, radiologist by Dr. Root. I spoke with Dr. Root who informed me that Dr. Rodriguez, radiologist could not determine distinctly if there was a thrombus in the left M1 segment of the left middle cerebral artery but due to the reported suspected developing subacute ischemia in the LEFT MCA on the CT angiogram of the head and neck, Dr. Root informing that the radiologist, Dr. Rodriguez stated that the patient would not be a candidate for thrombectomy secondary to potential for worsening the patient's condition secondary to risks of hemorrhagic changes if the procedure was attempted and therefore the patient was not referred to another facility to be evaluated for thrombectomy. The CT angiogram report also stated patient has history of a previous left carotid endarterectomy. Drug allergies: Clindamycin which resulted in a rash Penicillins which resulted in a rash Sulfonamide antibiotics which resulted in tongue, lip and throat swelling Tetracycline which resulted in tongue lip and throat swelling Jardiance which resulted in abdominal pain Januvia which resulted in abdominal pain Home medications: Norvasc 5 mg p.o. daily Tylenol 1000 mg p.o. every 6 hours as needed pain Aspirin 81 mg p.o. daily Lipitor 40 mg p.o. q. evening Calcium with vitamin D3 600 mg / 12.5 mcg p.o. daily Zyrtec 10 mg p.o. daily as Pepcid 20 mg p.o. twice daily Lasix 20 mg p.o. twice daily Guaifenesin extended release 600 mg every 12 hours as needed Insulin 100 units subcutaneously Detemir insulin 100 units per 3 mL 50 units subcutaneously twice daily Ketoconazole 2% topical cream to be applied twice a day as needed Synthroid 88 mcg p.o. daily Lisinopril 40 mg p.o. daily Mupirocin 2% topical ointment twice a day Nitroglycerin 0.4 mg tablets sublingual every 5 minutes as needed for chest pain Nystatin 100,000 units/g topical powder applied topically 3 times a day as needed [place]-3 fatty acid 1000 mg p.o. daily Oxybutynin ER 15 mg p.o. daily Potassium chloride 20 mEq p.o. daily Triamcinolone 0.1% topical cream to be applied daily Past medical history: 60% to 70% stenosis of the proximal righ t internal carotid artery reported on CT angiogram of the head and neck 10/26/2023 History of left carotid endarterectomy Hypothyroid Type 2 diabetes mellitus, insulin requiring Sleep apnea Obesity Old left frontal lobe infarction with encephalomalacia changes Venous stasis dermatitis Habits: None Review of Systems General: Reports: 10 or mor e systems reviewed and unremarkable except in HPI and below Neuro: Reports: weakness in extremities, la ck of coordination , difficulty walki ng, Slurred speech present and diffi culty communicatin g thoughts Vitals/I&O/Wt Last Vital Signs Temp 97.6 F 10/27/23 04:00 Pulse 77 10/27/23 08:30 Resp 16 10/27/23 08:30 BP 143/53 10/27/23 08:30 Pulse Ox 96 10/27/23 08:30 O2 Del Method Room Air 10/27/23 08:30 10/26/23 10/27/23 10/27/23 22:59 06:59 14:59 Intake Total 50.1 / 50.1 758.125 / 760.413 1389.375 / 1027.375 Output Total 480 / 480 Balance 50.1 / 50.1 278.125 / 992.684 6450.375 / 1027.375 Weight last 48 hrs Weight 167 lb 1.766 oz Weight 171 lb 15.369 oz Weight 178 lb Physical Exam 2 Narrative: Blood pressure 151/49 mean arterial blood pressure 83. O2 saturations while awake 98% O2 saturations while asleep 80. The patient has reported history of sleep apnea the nurse will speak with the family to determine if patient uses CPAP or BiPAP at home and I recommened CPAP or BiPAP during his hospitalization. The patient is alert but nonverbal. She has severe dysarthria and unable to speak. Pupils 4 mm round reactive to light and accommodation. Extraocular movements revealed left gaze preference. There was right lower facial weakness. Motor testing revealed right upper and right lower extremity paralysis. Deep tendon reflexes revealed 1+ in the upper extremities and trace in the lower extremities with extensor plantar response on the right. There was no clonus. Sensory examination revealed neglect on the right side of her body. There was lack of coordination and secondary to paralysis of the right arm and right leg. Throat clear. Lungs clear. Heart regular rhythm and rate. Extremities revealed venous stasis dermatitis and edema in the lower extremities. Urinary Catheter Management: Hood: Cath Placed During This Visit: yes Urinary Catheter Date of Insertion: 10/27/23 Urinary Catheter Time of Insertion: 08:08 Data 10/27/23 04:12 10/27/23 04:12 A&P Assessment and plan (1) Acute ischemic left MCA stroke: Impression: 1. Acute large MCA distribution stroke manifested as nonfluent aphasia, left gaze preference, and right-sided paralysis 1a. Focal calcification in the LEFT mid M1 segment with moderate to severe stenosis. Distal vessel remains patent. However significant decreased vascularity to the second and third order branches MCA territory and Suspected developing subacute ischemia LEFT MCA territory. The patient was reported not to be a candidate for thrombectomy secondary to subacute ischemic changes in the left MCA territory with potential for worsening of the patient's condition and hemorrhage 2. Administration of tenecteplase (TNKase) on 10/26/2023 at 11:05 AM without acute complications 2a. Remote left frontal lobe infarction with encephalomalacia 3. History of left carotid endarterectomy 3a. 60 to 70% stenosis of the proximal right internal carotid reported on CT angiogram of the head and neck performed on 10/26/2023 4. Insulin requiring type 2 diabetes mellitus 5. Sleep apnea 6. Obesity 7. Venous stasis dermatitis 8. Abdominal hernia 9. History of questionable aortic aneurysm, per patient's family report 10. Hypothyroidism 11. Hypertension Plan: 1. Follow NIH stroke protocol and post tenecteplase administration/intensive care unit treatment 2. Recommend patient be placed on CPAP or BiPAP since the patient was observed to have decreased O2 saturations in the 80s during sleep in the intensive care unit bed #11 and the patient has history of sleep apnea 3. Agree with obtaining CT angiogram of the chest to assess for aortic aneurysm 4. Repeat noncontrast head CT 24 hours post tenecteplase administration(tenecteplase given at 11:05 AM on 10/26/2023). Noncontrast head CT scheduled for 12 PM on 10/27/2023 5. Resume Lipitor 24 hours post tenecteplase administered 6. Recommend restarting low-dose aspirin 81 mg p.o. every morning and add Plavix 75 mg p.o. every morning with food if the repeat noncontrast head CT scheduled to be performed on 10/27/2023 is negative for hemorrhage or worsening/evolving stroke 24-hour post tenecteplase administration 7. Continue neurochecks and vitals per NIH stroke protocol and post thrombolytics (tenecteplase) administration 8. Recommend obtaining occupational therapy, physical therapy and speech therapy consults to assess nonfluent aphasia, and right-sided paralysis Attestations 2 Medical Necessity Statement*: The patient was evaluated by neurology secondary to acute left MCA distribution stroke and status post tenecteplase administration on 10/26/2023 Coding Level of Care Code 42248 Diagnoses Acute ischemic left MCA stroke I63.512
--- NOTE | 2023-10-27 12:00 | CTR_ITS ---
PROCEDURE INFORMATION: Exam: CT Head Without Contrast Exam date and time: 10/27/2023 12:46 PM Age: 83 years old Clinical indication: Other: Post thrombolysis TECHNIQUE: Imaging protocol: Computed tomography of the head without contrast. Radiation optimization: All CT scans at this facility use at least one of these dose optimization techniques: automated exposure control; mA and/or kV adjustment per patient size (includes targeted exams where dose is matched to clinical indication); or iterative reconstruction. REPORTING DATA: Count of CT and Cardiac NM exams in prior 12 months: This patient has received 3 known CTs and 0 known cardiac nuclear medicine studies in the 12 months prior to the current study. COMPARISON: CT angio headneck* [id number] 10/26/2023 11:20 AM RADIATION DOSE METRICS: Total DLP (mGy-cm): 1286.93 FINDINGS: Brain: Large ischemic infarct throughout the entire left MCA distribution producing effacement of the left cortical sulci and 2 mm midline shift to the right. Stable left frontal lobe encephalomalacia with subarachnoid hemorrhage and punctate calcification. Additional small vessel ischemic change. Vascular and dural calcifications. Cerebral ventricles: Mild effacement of the left lateral ventricle. No hydrocephalus. Paranasal sinuses: Ethmoid sinus mucoperiosteal disease. Mastoid air cells: No mastoid effusion. Bones/joints: No acute calvarial pathology. Soft tissues: Unremarkable soft tissues. CT/CT head wo con* [id number] IMPRESSION: 1. Large ischemic infarct throughout the entire left MCA distribution producing effacement of the left cortical sulci and 2 mm midline shift to the right. 2. Stable left frontal lobe encephalomalacia with subarachnoid hemorrhage and punctate calcification. 3. Additional findings as described above. The aforementioned findings initiated a critical results communication pathway. An addendum will be issued at the time of clincian notification.
[2023-10-27 13:17] LABS: Glucose Point of Care 122 mg/dL (70-110)
--- NOTE | 2023-10-27 15:02 | P.PN_ITS ---
Subjective 2 Subjective: No acute events overnight. Patient yesterday evening was placed on Levophed to maintain mean blood pressure around 65. Today morning Levophed was stopped. After stopping Levophed blood pressures were again down to 80-90 systolics with mean less than 60. Patient was given 500 cc of IV bolus and was started on 1 of Levophed. Patient worked with physical therapy today, was opening her eyes and following some commands but continued to remain aphasic with significant deficit on the right side. Seen with patient's daughter and son-in-law at bedside. Otherwise has remained afebrile. Blood work appreciated. Appreciated 24-hour CT head. Vitals/I&O/Wt Last Vital Signs Temp 97.6 F 10/27/23 04:00 Pulse 81 10/27/23 13:00 Resp 15 10/27/23 13:00 BP 105/39 10/27/23 13:00 Pulse Ox 98 10/27/23 13:00 O2 Del Method Room Air 10/27/23 13:00 10/27/23 10/27/23 10/27/23 06:59 14:59 22:59 Intake Total 758.125 / 720.741 3397.375 / 1027.375 Output Total 480 / 480 Balance 278.125 / 568.401 9193.375 / 1027.375 Weight last 48 hrs Weight 79.333 kg Weight 75.8 kg Weight 78 kg Weight 80.739 kg Physical Exam 2 Narrative: General: No acute distress, unable to sense orientation, patient if not able to speak but following in the room with eyes occasionally, sleeping on entering the room but wakes up with switching of light, pupils bilaterally equal and reactive HEENT: PERRLA, pupils bilaterally equal and reactive Chest: Normal vesicular breath sounds, no added sounds, equal good air entry bilaterally CVS: S1-S2 regular, no murmurs, no tachycardia, no gallops, no rubs Abdomen: Soft, nontender, no organomegaly, bowel sounds present Neuro: No focal deficits, no facial deformity, right-sided upper and lower limb weakness Urinary Catheter Management: Hood: Cath Placed During This Visit: yes Urinary Catheter Date of Insertion: 10/27/23 Urinary Catheter Time of Insertion: 08:08 Data 10/27/23 04:12 10/27/23 04:12 A&P Assessment and plan (1) Acute ischemic left MCA stroke: Post thrombolytics. Appreciate nephrology recommendations. Appreciate CTA head and neck results. Patient consider not candidate for embolectomy as per neurology. Appreciate CT head 24 hours post thrombolysis. Echocardiogram done shows normal EF with grade 1 diastolic dysfunction with mild MR. Keep mean arterial pressure around 65. Will give 500 cc bolus more and increase fluid to 100 cc/h. Wean Levophed accordingly. Patient not safe to have oral diet as per speech evaluation. Continue to follow-up PT and speech therapy. Aspirin 300 mg per rectally. Restart statin when possible. (2) Thrombolytic medication administered within last 5 days: Appreciate neurology recommendations. Hood catheter placed. Will restart heparin 5000 through 12 hourly from afternoon for DVT prophylaxis. Appreciate [address] head. (3) Hypotension: Patient does have significant hypotension. Maintain mean artery pressure over 65. Wean Levophed accordingly. No signs of infection for now. Appreciate UA. Patient does have mild leukocytosis which could be reactionary to acute stroke yesterday. For now we will continue with IV meropenem. Follow-up blood cultures. Hypotension most likely from dehydration and neurogenic. (4) Diabetes: Recent A1c more than 9. Blood sugars better controlled now. Continue to monitor. Insulin sliding scale at moderate dose protocol every 6 hourly. Glargine 50 units at bedtime. Patient takes glargine 50 units twice daily along with sliding scale. 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 (6) Hyponatremia: Resolved. Most likely pseudohyponatremia in setting of hyperglycemia. Normal saline as above. Repeat BMP daily. (7) Acute kidney injury: Resolved. Monitor BMP daily. (8) Hypothyroidism (acquired): Patient not able to take orally. Will switch to IV levothyroxine 44 mcg every morning from tomorrow. Appreciate TSH levels. (9) Essential hypertension: Goal blood pressure is above. Hold off on antihypertensives. (10) Noncompliance: Plan Obstructive sleep apnea: Will confirm if patient uses CPAP. If does well continue nightly. Right arm swelling: Will do ultrasound to rule out DVT Shoulder x-ray. Goals of care discussion: Discussed in detail with patient's daughter/DPOA at bedside. We discussed that unfortunately patient has significant deficit from advanced stroke. We discussed is difficult to see for now how much and when will patient improved. We also discussed that it is likely that this would be patient's baseline going forward. Daughter verbalized understanding. She states her mother would have wanted everything to be done to give getting better a try. She is okay with feeding tube. She is okay with chest compressions or ventilator if needed. Daughter states she has many grandchildren and great-grandchildren who will be able to take care of her and would want for patient to go home. We discussed that going forward patient will need assistance 24/ until she gets better. Daughter is agreeable. She is okay with home health. Will discuss with case management once available. CODE STATUS: Discussed with sister at bedside. For now we will remain full code. Patient's daughter is DPOA is not at bedside. NPO. Protonix for PUD prophylaxis SCDs for DVT prophylaxis. Discharge plan: Most likely home with home health with multiple family members as caregiver Attestations 2 Medical Necessity Statement*: Requires further hospitalization for management of significant dense MCA stroke while further speech therapy evaluation is awaited, possible PEG tube placement, safe discharge planning, hypotension Coding Level of Care Code Critical Care >/= 30 minutes Critical care time (in minutes): 60 The high probability of a clinically significant, sudden or life threatening deterioration, as referenced in this documentation, required my full and direct attention, intervention and personal management. The critical care time shown is in addition to time spent performing any reported separately billable procedures and includes the following: [x] Data and vital sign review and interpretation [x ] Patient assessment, examination and intervention [x] Medication orders and management [x] Patient/Family updates as able [x] Care Coordination and Documentation. Diagnoses Acute ischemic left MCA stroke I63.512 Thrombolytic medication administered within last 5 days Z78.9 Hypotension I95.9 Type 2 diabetes mellitus with other specified complication, with long-term current use of insulin E11.69; Z79.4 Diabetes mellitus complication status: with other specified complication Diabetes mellitus detention insulin use: with detention use Diabetes mellitus type: type 2 Hyperkalemia E87.5 Hyponatremia E87.1 Acute kidney injury N17.9 Hypothyroidism (acquired) E03.9 Essential hypertension I10 Noncompliance Z91.19
[2023-10-27] MEDS: sodium chloride 0.9% 1,000 ML 999 ML IV (16:44)
[2023-10-27] MEDS: pantoprazole 40 mg SDV IVP (16:44)
[2023-10-27 18:32] LABS: Glucose Point of Care 142 mg/dL (70-110)
--- NOTE | 2023-10-27 20:57 | PC.NURSE ---
Addendum entered by Carol Carpio RN 10/27/23 21:00: PRN Morphine given. Original Note: Patient asked if she was in pain and patient shook her head yes. Due to aphasia, patient is unable to tell me where her pain is at and unable to rate it on a scale of 1-10.
[2023-10-27] MEDS: morphine 4 mg/mL SDV 1 mL 2 MG IVP (21:00)
--- NOTE | 2023-10-27 21:03 | PC.NURSE ---
Upon my arrival on shift, NS running at 100 ml/hr and Levophed running at 1 mcg/min. Levophed was edited on jan by me to show correct rate that it is running, however it will not allow me to edit NS on jan.
[2023-10-27 21:10] LABS: Glucose Point of Care 143 mg/dL (70-110)
--- NOTE | 2023-10-27 21:21 | PC.NURSE ---
Dr. Mccarthy notified of blood sugar of 143, patient being NPO due to being unable to swallow due to stroke, and patient having 50 of Lantus due at this time. Ordered to give 25 units Lantus instead of 50 units at this time.
--- NOTE | 2023-10-27 22:33 | PC.NURSE ---
Dr. Mccarthy notified of change in patient's neuro assessment. Notified that patient currently has no movement to right arm or leg and that the neuro assessment from day shift nurse was charted as slight movement to right arm and right leg. No new orders received.
--- NOTE | 2023-10-27 22:35 | PC.NURSE ---
Patient unable to swallow PO medications and is NPO due to high aspiration risk. PO HS Liptor non-admined.
[2023-10-27 22:50] LABS: Glucose Point of Care 116 mg/dL (70-110)
--- NOTE | 2023-10-27 22:51 | PC.NURSE ---
Due to delay by pharmacy in verifying Lantus, patient's blood sugar was rechecked prior to administration. Blood sugar on recheck 116. Dr. Mccarthy notified. Ordered to hold Lantus.
--- NOTE | 2023-10-27 23:27 | PC.NURSE ---
Unable to assess patient's orientation status, as patient has aphasic and unclear speech.
[2023-10-28] VITALS (25 sets, daily range): BP systolic 105–197; BP diastolic 28–74; PULSE 63–103; RESP 12–30; TEMP 37.1–38.1; O2SAT 90–100; BMI 35.1
[2023-10-28] MEDS: sodium chloride 0.9% 1,000 ML 100 ML IV
[2023-10-28] MEDS: blistex lip oint 7 gm Tube 1 APPLIC TOPICAL (00:13)
--- NOTE | 2023-10-28 01:01 | PC.NURSE ---
Message to nurse order states keep MAP between 70 and 100. Levophed drip turned off at 0004 and restarted at 0101. See vital signs.
--- NOTE | 2023-10-28 04:26 | XRR_ITS ---
PROCEDURE INFORMATION: Exam: XR Chest Exam date and time: 10/28/2023 5:36 AM Age: 83 years old Clinical indication: Shortness of breath; Prior surgery; Surgery date: 6+ months; Surgery type: Gb; Patient HX: SOB with worsening breath sounds; Additional info: Change in breath sounds/shortness of breath TECHNIQUE: Imaging protocol: Radiologic exam of the chest. Views: 1 view. COMPARISON: CR XR chest 1V portable [id number] 10/26/2023 11:10 AM FINDINGS: Lungs: There is no consolidation. Pleural spaces: There is no pleural effusion or pneumothorax. Heart/Mediastinum: There is mild enlargement of the cardiac silhouette. Bones/joints: Bones are unremarkable. XR/XR chest 1V portable [id number] IMPRESSION: No acute findings.
--- NOTE | 2023-10-28 04:27 | PC.NURSE ---
Addendum entered by Carol Carpio RN 10/28/23 05:04: This RN recommended head CT. No new orders received. Addendum entered by Carol Carpio RN 10/28/23 04:32: Also notified that a little bit more drowsy/lethargic than earlier, but she still arouses to verbal. Original Note: Patient has sonorous breathing sounds, which patient did not have on previous assessment. When asking patient if she feels short of breath, she shakes her head yes. Patient repositioned in bed. Dr. Mccarthy notified. Ordered to stop NS and CXR ordered.
[2023-10-28 04:39] LABS: Glucose Point of Care 243 mg/dL (70-110)
[2023-10-28] MEDS: insulin lispro 100 unit/1 mL SUBCUT ×3 (05:37→17:12)
[2023-10-28 05:46] LABS: Glucose Point of Care 231 mg/dL (70-110)
--- NOTE | 2023-10-28 09:52 | P.PN_ITS ---
Subjective 2 Subjective: History of Present Illness Christina Julien is a 83 year old female with a history of remote left frontal lobe infarction with encephalomalacia, chronic cortical atrophy, insulin requiring type 2 diabetes mellitus, hypothyroidism, hypertension, obstructive sleep apnea, venous stasis dermatitis, thyroid nodule, polyarthralgia, abdominal hernia and questionable abdominal aneurysm. The patient was reported to be in her usual state of health. But on 10/26/2023 the patient was reported to be found down at 9:45 AM on 10/26/2023. Patient's last known well (LKW) was 7:30 AM on 10/26/2023. According to the family, the patient checked her blood sugar this morning on 10/26/2023 and it was reported by the family needs to be 184 and the patient self-administered her subcutaneous insulin injection. The patient was brought to [facility] emergency room via EMS secondary to acute on onset of right- sided paralysis, left gaze preference and inability to speak. NIH score = 29 by ER physician and NIH score = 24 by neurology evaluation at the bedside and emergency department bed #11. following the stat noncontrast head CT was performed. Stat noncontrast head CT was obtained and revealed No evidence of intracranial hemorrhage or mass effect. Dense focal calcification in the LEFT mid MCA. This can be further evaluated with CTA. Moderate small vessel changes with moderate parenchymal volume loss worse in the frontal lobes. Chronic infarct with encephalomalacia in the LEFT frontal lobe unchanged from previous. The family was contacted via phone and 1 family member arrived in person to give consent for intravenous tenecteplase (TNKase). Intravenous tenecteplase was administered at 11:05 AM on 10/26/2023. The patient tolerated the tenecteplase bolus without issues. In view of the patient's clinical findings of the left MCA distribution stroke, she was sent back to the CT scanner for CT angiogram of the head and neck as well as CT of the chest since there was reports of a questionable aortic aneurysm, per patient's family history given in the ER today in room # 11. The results of the CT angiograms were not available for review at the time of this dictation. The patient was transferred to the intensive care unit Bed 11 per NIH stroke protocol and post tenecteplase administration. Today on 10/27/2023 the patient remained stable. The patient is an ICU bed 11. She was easily arousable to verbal and tactile stimuli. Patient trying to cooperate. She still has a dense nonfluent aphasia with severe dysarthria but slightly improved since 10/26/2023. Patient has some slight movement of the fingers of the right hand and right toes but still has significant deficit during motor testing of the right arm and right leg with near paralysis. Extensor plantar response still observed during neurological testing in the right lower extremity. The patient was reevaluated on 10/28/2023 the patient remains alert and cooperative. She still has near paralysis of the right arm and right leg. Patient still has dense nonfluent aphasia but attempts to speak. Repeat noncontrast head CT performed on 10/27/2023 approximately 24 hours after tenecteplase was administered revealed a Large ischemic infarct throughout the entire left MCA distribution producing effacement of the left cortical sulci and 2 mm midline shift to the right and stable left frontal lobe encephalomalacia with subarachnoid hemorrhage and punctate calcification. The patient will undergo repeat noncontrast head CT today on 10/28/2023 to assess for any progression in the left hemispheric mass effect and reported subarachnoid hemorrhage in the remote stroke in the frontal region. CT angiogram of the head and neck 10/26/2023 IMPRESSION: 1. Focal calcification in the LEFT mid M1 segment with moderate to severe stenosis. Distal vessel remains patent. However significant decreased vascularity to the second and third order branches MCA territory 2. Suspected developing subacute ischem ia LEFT MCA territory. 3. Intracranial CTA otherwise patent. 4. Approximately 60 to 70% RIGHT proxim al ICA stenosis. RIGHT ICA is patent to the skull base. 5. Prior LEFT carotid endarterectomy. N o significant stenosis. CT angiogram of the head and neck was reviewed with Dr. Rodriguez, radiologist by Dr. Root. I spoke with Dr. Root who informed me that Dr. Rodriguez, radiologist could not determine distinctly if there was a thrombus in the left M1 segment of the left middle cerebral artery but due to the reported suspected developing subacute ischemia in the LEFT MCA on the CT angiogram of the head and neck, Dr. Root informing that the radiologist, Dr. Rodriguez stated that the patient would not be a candidate for thrombectomy secondary to potential for worsening the patient's condition secondary to risks of hemorrhagic changes if the procedure was attempted and therefore the patient was not referred to another facility to be evaluated for thrombectomy. The CT angiogram report also stated patient has history of a previous left carotid endarterectomy. Repeat noncontrast head CT 10/27/2023 approximate 24 hours post tenecteplase revealed: IMPRESSION: 1. Large ischemic infarct throughout th e entire left MCA distribution producing effacement of the left cortical sulci and 2 mm midline shift to the right. 2. Stable left frontal lobe encephaloma lacia with subarachnoid hemorrhage and punctate calcification. Drug allergies: Clindamycin which resulted in a rash Penicillins which resulted in a rash Sulfonamide antibiotics which resulted in tongue, lip and throat swelling Tetracycline which resulted in tongue lip and throat swelling Jardiance which resulted in abdominal pain Januvia which resulted in abdominal pain Home medications: Norvasc 5 mg p.o. daily Tylenol 1000 mg p.o. every 6 hours as needed pain Aspirin 81 mg p.o. daily Lipitor 40 mg p.o. q. evening Calcium with vitamin D3 600 mg / 12.5 mcg p.o. daily Zyrtec 10 mg p.o. daily as Pepcid 20 mg p.o. twice daily Lasix 20 mg p.o. twice daily Guaifenesin extended release 600 mg every 12 hours as needed Insulin 100 units subcutaneously Detemir insulin 100 units per 3 mL 50 units subcutaneously twice daily Ketoconazole 2% topical cream to be applied twice a day as needed Synthroid 88 mcg p.o. daily Lisinopril 40 mg p.o. daily Mupirocin 2% topical ointment twice a day Nitroglycerin 0.4 mg tablets sublingual every 5 minutes as needed for chest pain Nystatin 100,000 units/g topical powder applied topically 3 times a day as needed Olean-3 fatty acid 1000 mg p.o. daily Oxybutynin ER 15 mg p.o. daily Potassium chloride 20 mEq p.o. daily Triamcinolone 0.1% topical cream to be applied daily Past medical history: 60% to 70% stenosis of the proximal righ t internal carotid artery reported on CT angiogram of the head and neck 10/26/2023History of left carotid endarterectomy Hypothyroid Type 2 diabetes mellitus, insulin requiring Sleep apnea Obesity Old left frontal lobe infarction with encephalomalacia changes Venous stasis dermatitis Habits: None Review of Systems General: Reports: 10 or mor e systems reviewed and unremarkable except in HPI and below Neuro: Reports: weakness in extremities, la ck of coordination , difficulty walki ng, Slurred speech present and diffi culty communicatin g thoughts Vitals/I&O/Wt Last Vital Signs Temp 99.6 F 10/28/23 04:30 Pulse 88 10/28/23 08:26 Resp 16 10/28/23 08:26 BP 147/62 10/28/23 08:26 Pulse Ox 99 10/28/23 08:26 O2 Del Method Room Air 10/28/23 01:30 10/27/23 10/28/23 10/28/23 22:59 06:59 14:59 Intake Total 1538.05 / 3114.875 516.208 / 3631.083 Output Total 1100 / 1100 800 / 1900 330 / 330 Balance 438.05 / 2014.875 -283.792 / 1731.083 -330 / -330 Weight last 48 hrs Weight 179 lb 10.828 oz Weight 174 lb 14.4 oz Weight 167 lb 1.766 oz Weight 171 lb 15.369 oz Weight 178 lb Physical Exam 2 Narrative: The patient is alert but nonverbal. She has severe dysarthria and unable to speak. Pupils 4 mm round reactive to light and accommodation. Extraocular movements revealed left gaze preference. There was right lower facial weakness. Motor testing revealed right upper and right lower extremity paralysis. Deep tendon reflexes revealed 1+ in the upper extremities and trace in the lower extremities with extensor plantar response on the right. There was no clonus. Sensory examination revealed neglect on the right side of her body. There was lack of coordination and secondary to paralysis of the right arm and right leg. Throat clear. Lungs clear. Heart regular rhythm and rate. Extremities revealed venous stasis dermatitis and edema in the lower extremities. Urinary Catheter Management: Hood: Cath Placed During This Visit: yes Reason for Continuing Indwelling Catheter: Accurate Measurement of Urinary Output in Critically Ill Patients Urinary Catheter Date of Insertion: 10/27/23 Urinary Catheter Time of Insertion: 08:08 Data 10/27/23 04:12 10/27/23 04:12 A&P Assessment and plan (1) Acute ischemic left MCA stroke: Impression: 1. Acute large MCA distribution stroke manifested as nonfluent aphasia, left gaze preference, and right-sided paralysis 1a. Focal calcification in the LEFT mid M1 segment with moderate to severe stenosis. Distal vessel remains patent. However significant decreased vascularity to the second and third order branches MCA territory and Suspected developing subacute ischemia LEFT MCA territory. The patient was reported not to be a candidate for thrombectomy secondary to subacute ischemic changes in the left MCA territory with potential for worsening of the patient's condition and hemorrhage 1b. Abnormal repeat noncontrast head CT performed on 10/27/2023 approximately 24 hours post tenecteplase administration revealed large ischemic infarct throughout the entire left MCA distribution producing effacement of the left cortical sulci and 2 mm midline shift to the right. Stable left frontal lobe encephalomalacia with subarachnoid hemorrhage and punctate calcification. 1c. Vascular and dural calcifications 2. Administration of tenecteplase (TNKase) on 10/26/2023 at 11:05 AM without acute complications 2a. Remote left frontal lobe infarction with encephalomalacia 3. History of left carotid endarterectomy 3a. 60 to 70% stenosis of the proximal right internal carotid reported on CT angiogram of the head and neck performed on 10/26/2023 4. Insulin requiring type 2 diabetes mellitus 5. Sleep apnea 6. Obesity 7. Venous stasis dermatitis 8. Abdominal hernia 9. History of questionable aortic aneurysm, per patient's family report 10. Hypothyroidism 11. Hypertension Plan: 1. Follow NIH stroke protocol and post tenecteplase administration/intensive care unit treatment 2. Recommend patient be placed on CPAP or BiPAP since the patient was observed to have decreased O2 saturations in the 80s during sleep in the intensive care unit bed #11 and the patient has history of sleep apnea 3. Agree with obtaining CT angiogram of the chest to assess for aortic aneurysm 4. Patient scheduled for repeat noncontrast head CT to assess for worsening of left see left MCA distribution cerebral edema/mass effect and to evaluate any worsening of the reported subarachnoid hemorrhage in the remote stroke with encephalomalacia in the left frontal region. Note: Patient status post tenecteplase administration(tenecteplase given at 11:05 AM on 10/26/2023). Repeat Noncontrast head CT scheduled for 12 PM on 10/28/2023 5. Resume Lipitor 24 hours post tenecteplase administered 6. Recommend holding low-dose aspirin 81 mg p.o. every morning secondary to reports of left MCA distribution cerebral edema with mass effect and subarachnoid hemorrhage in the old left frontal lobe stroke with encephalomalacia reported on noncontrast head CT scan performed on 10/27/2023 approximately 24 hours post tenecteplase administration 7. Continue neurochecks and vitals per NIH stroke protocol and post thrombolytics (tenecteplase) administration 8. Recommend obtaining occupational therapy, physical therapy and speech therapy consults to assess nonfluent aphasia, and right-sided paralysis 9. Keep head of bed elevated at 30 degrees as tolerated 10. Use normal saline for IV fluids and no hypotonic fluids (hypotonic fluids may potentially increase the cerebral edema reported on noncontrast head CT) Attestations 2 Medical Necessity Statement*: Patient evaluated by neurology secondary to history of large left MCA distribution stroke with edema and mass effect and reports of subarachnoid bleeding in the old left frontal lobe stroke with encephalomalacia Coding Level of Care Code 79324 Diagnoses Acute ischemic left MCA stroke I63.512
[2023-10-28] MEDS: meropenem 1,000 MG in sodium chloride 0.9% (plus) 50 ML 100 MG IV ×3 (10:00→17:12)
[2023-10-28 11:05] LABS: Basophils % 0.4 %; Eosinophils % 0.1 %; Hematocrit 30.5 % (36-47); Lymphocytes # 2.1 10^3/uL (0.8-4.8); Lymphocytes % 21.9 %; Mean Corpuscular HGB Conc 31.5 g/dL (30-55); Mean Corpuscular Hemoglobin 29.2 pg (27-33); Mean Corpuscular Volume 92.7 fl (85-98); Mean Platelet Volume 10.9 fL (7.4-10.4); Monocytes # 0.9 10^3/uL (0.2-0.9); Monocytes % 9.1 %; Neutrophils # 6.44 10^3/uL (1.8-7.7); Neutrophils % 68.3 %; Nucleated Red Blood Cells % 0 %; Platelet Count 147 10^3/cmm (157-399); Red Blood Count 3.29 10^6/uL (3.85-5.65); Red Cell Distribution Width 14.3 % (12.1-15.1); White Blood Count 9.44 10^3/uL (3.29-11.43)
[2023-10-28 11:17] LABS: Alanine Aminotransferase 18 U/L (0-33); Albumin Level 3.7 g/dL (3.5-5.2); Alkaline Phosphatase 80 U/L (35-105); Anion Gap 13.2 (5-19); Aspartate Amino Transferase 27 U/L (0-32); Blood Urea Nitrogen 7 mg/dL (8-23); Calcium 8.8 mg/dL (8.5-10.5); Carbon Dioxide 25 mmol/L (22-29); Chloride 106 mmol/L (98-107); Globulin 2.7 g/dL (1.3-4.6); Glucose 198 mg/dL (65-115); Osmolality Calculated 294 mOsm/kg (285-295); Potassium 4.2 mmol/L (3.5-5.1); Sodium 140 mmol/L (136-145); Total Bilirubin 0.7 mg/dL (0.15-1.2); Total Protein 6.4 g/dL (6.6-8.7)
[2023-10-28 11:53] LABS: Glucose Point of Care 216 mg/dL (70-110)
--- NOTE | 2023-10-28 12:00 | CTR_ITS ---
PROCEDURE INFORMATION: Exam: CT Head Without Contrast Exam date and time: 10/28/2023 12:08 PM Age: 83 years old Clinical indication: Altered mental status/memory loss; Confusion or disorientation; Additional info: Repeat after a stroke TECHNIQUE: Imaging protocol: Computed tomography of the head without contrast. Radiation optimization: All CT scans at this facility use at least one of these dose optimization techniques: automated exposure control; mA and/or kV adjustment per patient size (includes targeted exams where dose is matched to clinical indication); or iterative reconstruction. REPORTING DATA: Count of CT and Cardiac NM exams in prior 12 months: This patient has received 4 known CTs and 0 known cardiac nuclear medicine studies in the 12 months prior to the current study. COMPARISON: CT head wo con* [id number] 10/27/2023 12:46 PM RADIATION DOSE METRICS: Total DLP (mGy-cm): 1169.28 FINDINGS: Brain: There is diffuse hypodensity and loss of navarrete-white differentiation in the left middle cerebral artery territory involving the frontal, temporal and parietal lobes, insula and lentiform nucleus. There is focal calcification in the high posterior left frontal lobe with minimal adjacent irregular increased density similar to the finding on 10/27/2023. Additional focal calcification is seen in association with the proximal left middle cerebral artery. There is diffuse cerebral atrophy and chronic microvascular white matter disease. Basal cisterns are patent. There is slight rightward midline shift (approximately 2 mm) which is stable since 10/27/2023. No new intracranial hemorrhage. Cerebral ventricles: There is partial compression of the left lateral ventricle. There is mild ex vacuo dilation of the right lateral ventricle. Paranasal sinuses: The paranasal sinuses are clear. Mastoid air cells: The mastoid air cells are clear. Bones/joints: The calvarium is intact. Soft tissues: The visible extracranial soft tissues are unremarkable. CT/CT head wo con* [id number] IMPRESSION: 1. Evolving subacute infarct in the left MCA territory. 2. Trace irregular high attenuation in the left frontal lobe similar to the finding on 10/27/2023. Possible trace hemorrhage or occluded vessel. 3. Calcifications in the proximal left middle cerebral artery and in the left frontal lobe adjacent to the aforementioned focus of irregular high attenuation. Possible calcified arterial emboli. 4. Cerebral volume loss with mildly increased mass effect related to the left MCA territory infarct. Stable 2 mm rightward subfalcine midline shift. Mildly progressive partial effacement of the left lateral ventricle.
--- NOTE | 2023-10-28 14:52 | PC.NURSE ---
Patient arrived to med/surg [id number]. Transferred by CONNIE Weaver.
--- NOTE | 2023-10-28 15:27 | PM.PN ---
Subjective Subjective: No acute events overnight. Patient remains at baseline mentation. Waking up on verbal stimulus and following with eyes and responds by nodding or smiling. Still aphasic. Continues to have significant deficits on right side. Blood pressure is better. Off Levophed. Did have 1 episode of fever up to 100.1 Fahrenheit. Vitals/I&O/Wt Last Vital Signs Temp 99.6 F 10/28/23 04:30 Pulse 88 10/28/23 11:00 Resp 16 10/28/23 11:00 BP 147/62 10/28/23 11:00 Pulse Ox 99 10/28/23 08:26 O2 Del Method Room Air 10/28/23 01:30 10/28/23 10/28/23 10/28/23 06:59 14:59 22:59 Intake Total 516.208 / 3631.083 50 / 50 Output Total 800 / 1900 330 / 330 Balance -283.792 / 1731.083 -280 / -280 Weight last 48 hrs Weight 81.5 kg Weight 81.5 kg Weight 79.333 kg Weight 75.8 kg Physical Exam Narrative: General: No acute distress, wakes up to verbal stimulus, following with eyes, responds with smiling and nodding her head but remains aphasic, pupils bilaterally equal and reactive HEENT: PERRLA, pupils bilaterally equal and reactive Chest: Normal vesicular breath sounds, no added sounds, equal good air entry bilaterally CVS: S1-S2 regular, no murmurs, no tachycardia, no gallops, no rubs Abdomen: Soft, nontender, no organomegaly, bowel sounds present Neuro: No focal deficits, no facial deformity, right-sided upper and lower limb weakness Urinary Catheter Management: Hood: Cath Placed During This Visit: yes Reason for Continuing Indwelling Catheter: Accurate Measurement of Urinary Output in Critically Ill Patients Urinary Catheter Date of Insertion: 10/27/23 Urinary Catheter Time of Insertion: 08:08 Data 10/28/23 10:49 10/28/23 10:49 A&P Assessment and plan (1) Acute ischemic left MCA stroke: Post thrombolytics. Appreciate nephrology recommendations. Appreciate CTA head and neck results. Patient consider not candidate for embolectomy as per neurology. Appreciate CT head 24 hours post thrombolysis. Echocardiogram done shows normal EF with grade 1 diastolic dysfunction with mild MR. Keep mean arterial pressure around 65. Will give 500 cc bolus more and increase fluid to 100 cc/h. Wean Levophed accordingly. Patient not safe to have oral diet as per speech evaluation. Continue to follow-up PT and speech therapy. Aspirin 300 mg per rectally. Restart statin when possible. (2) Thrombolytic medication administered within last 5 days: Appreciate neurology recommendations. Hood catheter placed. Will restart heparin 5000 through 12 hourly from afternoon for DVT prophylaxis. Appreciate [address] head. (3) Hypotension: Patient does have significant hypotension. Maintain mean artery pressure over 65. Wean Levophed accordingly. No signs of infection for now. Appreciate UA. Patient does have mild leukocytosis which could be reactionary to acute stroke yesterday. For now we will continue with IV meropenem. Follow-up blood cultures. Hypotension most likely from dehydration and neurogenic. (4) Diabetes: Recent A1c more than 9. Blood sugars better controlled now. Continue to monitor. Insulin sliding scale at moderate dose protocol every 6 hourly. Glargine 50 units at bedtime. Patient takes glargine 50 units twice daily along with sliding scale. 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 (6) Hyponatremia: Resolved. Most likely pseudohyponatremia in setting of hyperglycemia. Normal saline as above. Repeat BMP daily. (7) Acute kidney injury: Resolved. Monitor BMP daily. (8) Hypothyroidism (acquired): Patient not able to take orally. Will switch to IV levothyroxine 44 mcg every morning from tomorrow. Appreciate TSH levels. (9) Essential hypertension: Goal blood pressure is above. Hold off on antihypertensives. (10) Noncompliance: Plan Obstructive sleep apnea: Will confirm if patient uses CPAP. If does well continue nightly. Right arm swelling: Will do ultrasound to rule out DVT Shoulder x-ray. Goals of care discussion: Discussed in detail with patient's daughter/DPOA at bedside. We discussed that unfortunately patient has significant deficit from advanced stroke. We discussed is difficult to see for now how much and when will patient improved. We also discussed that it is likely that this would be patient's baseline going forward. Daughter verbalized understanding. She states her mother would have wanted everything to be done to give getting better a try. She is okay with feeding tube. She is okay with chest compressions or ventilator if needed. Daughter states she has many grandchildren and great-grandchildren who will be able to take care of her and would want for patient to go home. We discussed that going forward patient will need assistance 24/ until she gets better. Daughter is agreeable. She is okay with home health. Will discuss with case management once available. CODE STATUS: Discussed with sister at bedside. For now we will remain full code. Patient's daughter is DPOA is not at bedside. NPO. Protonix for PUD prophylaxis SCDs for DVT prophylaxis. Plan for the day: Transfer [facility] floor. Underwent repeat CT scan as per neurology recommendations which shows expected evolution of the stroke with mild concerns for trace hemorrhage or occluded blood vessel. For now we will hold off on rectal aspirin and heparin prophylaxis. Continue with PT evaluation. Patient still not able to maintain oral feeds. If continues to be in the current status we will plan for PEG tube placement. Will consult surgery. Continue with IV levothyroxine. IRENA resolved. Blood pressure better controlled. Continue with IV fluids at 75 cc/h. Monitor blood pressures with goal less than 140/90 mmHg. If needed will start on low-dose clonidine. Discharge plan: Most likely home with home health with multiple family members as caregiver Attestations Medical Necessity Statement*: Requires further hospitalization for management of acute MCA stroke while patient awaits possible PEG tube placement and safe discharge planning. 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
[2023-10-28 16:03] LABS: ABG PCO2 38.3 mmHg (35-45); ABG PH Result 7.45 (7.35-7.45); Alveolar-Arterial Oxygen Gradi 5.8 mmHg (5-10); Arterial Blood Gas Hematocrit 32.5 % (37-47); Base Excess ABG 2.6 mmol/L (-2.0-2.0); Blood Gas Allen Test Pos; Blood Gas Operator Identificat glc; Blood Gas Sample Site Radial, right; Blood Gas Sample Type Arterial; Carboxyhemoglobin 1.3 %THgb (0.4-20.1); HCO3 ABG 26.6 mmol/L (22-26); HGB O2 Sat 89.7 % (95-100); Ionized Calcium Level - ABG 1.2 mmol/L (1.1-1.4); Methemoglobin 0.5 % (0.4-1.5); Oxygen Device ROOM AIR; Oxygen Saturation ABG 91.3; PO2 FiO2 Ratio Arterial Blood 0; Potassium Level - ABG 3.7 mmol/L (3.5-5.0); Total Hemoglobin 10.6 g/dL (12-16)
[2023-10-28 17:08] LABS: Glucose Point of Care 170 mg/dL (70-110)
[2023-10-28] MEDS: pantoprazole 40 mg SDV IVP (17:53)
--- NOTE | 2023-10-28 18:07 | USR_ITS ---
PROCEDURE INFORMATION: Exam: US Duplex Left Upper Extremity Veins, Limited Exam date and time: 10/28/2023 6:31 PM Age: 83 years old Clinical indication: Swelling (edema) of limb; Upper extremity, left; Additional info: Tight and swollen TECHNIQUE: Imaging protocol: Real-time duplex ultrasound of the left extremity with 2-D navarrete scale, color Doppler flow and spectral waveform analysis including responses to compression and other maneuvers (when performed) with image documentation. Limited exam focused on the left upper extremity veins. COMPARISON: US thyroid [id number] 10/30/2022 11:32 AM FINDINGS: Left deep veins: Left internal jugular vein: Patent with normal flow and phasicity. Left innominate vein: Patent with normal flow and phasicity. Left subclavian vein: Patent with normal flow and phasicity. Left axillary vein: Patent with normal flow and phasicity. Left brachial veins: Patent with normal flow and phasicity. Superficial veins: Left Cephalic vein: Occluded with abnormal flow and phasicity. Left Basilic vein: Occluded with abnormal flow and phasicity. Soft tissues: Unremarkable. US/[place] [id number] IMPRESSION: Venous thrombosis in the veins of the superficial left upper extremity veins as described above.
[2023-10-28 18:16] LABS: Glucose Point of Care 186 mg/dL (70-110)
[2023-10-28] MEDS: insulin glargine 100 units/1 mL 50 UNIT SUBCUT (21:56)
--- NOTE | 2023-10-28 22:40 | PC.NURSE ---
unable to get good PIV in patient, notified doctor, said to place PICC, called daughter monster to verify consent since patient is unable to consent, daughter consented and verified with myself and Step RN consent in chart.
[2023-10-29] VITALS (10 sets, daily range): BP systolic 134–153; BP diastolic 44–75; PULSE 55–75; RESP 17–19; TEMP 36.4–37.4; O2SAT 99–100
[2023-10-29 00:02] LABS: Glucose Point of Care 213 mg/dL (70-110)
--- NOTE | 2023-10-29 00:40 | PC.NURSE ---
Consent obtained from family. All risk and benefits discussed. Risk included but not limited to dvt and infection. RUE scanned with US and basilic vein was the best option. Vein was straight, 3 mm, and free of visible clot. Pt draped in usual sterile fashion. Using real time US, lidocaine injected, vein accessed, and picc unable to be floated passed 20 cm. After multiple trys a midline was floated into position. EBL less then 5 ml. no bleeding no hemotoma. This is a midline.
[2023-10-29] MEDS: meropenem 1,000 MG in sodium chloride 0.9% (plus) 50 ML 100 MG IV ×3 (01:09→17:17)
[2023-10-29] MEDS: insulin lispro 100 unit/1 mL SUBCUT ×2 (01:09→06:46)
--- NOTE | 2023-10-29 01:31 | XRR_ITS ---
PROCEDURE INFORMATION: Exam: XR Chest Exam date and time: 10/29/2023 1:40 AM Age: 83 years old Clinical indication: Device placement; Prior surgery; Surgery date: 6+ months; Surgery type: Gb; Patient HX: Check S/P RT midline placement TECHNIQUE: Imaging protocol: Radiologic exam of the chest. Views: 1 view. COMPARISON: CR (CHEST, ) 10/28/2023 5:36 AM FINDINGS: Tubes, catheters and devices: Right PICC with tip in the region of the proximal subclavian vein. Recommend advancement by at least 5 cm. Lungs: No consolidation. Pleural spaces: Unchanged mild blunting of the left costophrenic angle, could be related to atelectasisor pleural fluid. No pneumothorax. Heart/Mediastinum: Unremarkable cardiomediastinal silhouette. Bones/joints: No acute abnormality. XR/XR chest 1V portable [id number] IMPRESSION: Right PICC with tip in the region of the proximal subclavian vein. Recommend advancement by at least 5 cm.
[2023-10-29 05:53] LABS: Basophils % 0.4 %; Eosinophils % 0.1 %; Hematocrit 30.1 % (36-47); Lymphocytes # 2.7 10^3/uL (0.8-4.8); Lymphocytes % 24.7 %; Mean Corpuscular HGB Conc 30.6 g/dL (30-55); Mean Corpuscular Hemoglobin 29.4 pg (27-33); Mean Corpuscular Volume 96.2 fl (85-98); Mean Platelet Volume 10.9 fL (7.4-10.4); Monocytes % 8.8 %; Neutrophils # 7.26 10^3/uL (1.8-7.7); Neutrophils % 65.5 %; Nucleated Red Blood Cells % 0 %; Platelet Count 138 10^3/cmm (157-399); Red Blood Count 3.13 10^6/uL (3.85-5.65); White Blood Count 11.08 10^3/uL (3.29-11.43)
[2023-10-29 06:17] LABS: Alanine Aminotransferase 14 U/L (0-33); Albumin Level 3.2 g/dL (3.5-5.2); Alkaline Phosphatase 68 U/L (35-105); Anion Gap 15.9 (5-19); Aspartate Amino Transferase 24 U/L (0-32); Blood Urea Nitrogen 7 mg/dL (8-23); Calcium 8.6 mg/dL (8.5-10.5); Carbon Dioxide 22 mmol/L (22-29); Chloride 105 mmol/L (98-107); Globulin 2.8 g/dL (1.3-4.6); Glucose 164 mg/dL (65-115); Osmolality Calculated 290 mOsm/kg (285-295); Potassium 3.9 mmol/L (3.5-5.1); Sodium 139 mmol/L (136-145); Total Bilirubin 0.9 mg/dL (0.15-1.2)
[2023-10-29 06:38] LABS: Glucose Point of Care 167 mg/dL (70-110)
--- NOTE | 2023-10-29 09:54 | P.PN_ITS ---
Subjective 2 Subjective: History of Present Illness Christina Julien is a 83 year old female with a history of remote left frontal lobe infarction with encephalomalacia, chronic cortical atrophy, insulin requiring type 2 diabetes mellitus, hypothyroidism, hypertension, obstructive sleep apnea, venous stasis dermatitis, thyroid nodule, polyarthralgia, abdominal hernia and questionable abdominal aneurysm. The patient was reported to be in her usual state of health. But on 10/26/2023 the patient was reported to be found down at 9:45 AM on 10/26/2023. Patient's last known well (LKW) was 7:30 AM on 10/26/2023. According to the family, the patient checked her blood sugar this morning on 10/26/2023 and it was reported by the family needs to be 184 and the patient self-administered her subcutaneous insulin injection. The patient was brought to [facility] emergency room via EMS secondary to acute on onset of right- sided paralysis, left gaze preference and inability to speak. NIH score = 29 by ER physician and NIH score = 24 by neurology evaluation at the bedside and emergency department bed #11. following the stat noncontrast head CT was performed. Stat noncontrast head CT was obtained and revealed No evidence of intracranial hemorrhage or mass effect. Dense focal calcification in the LEFT mid MCA. This can be further evaluated with CTA. Moderate small vessel changes with moderate parenchymal volume loss worse in the frontal lobes. Chronic infarct with encephalomalacia in the LEFT frontal lobe unchanged from previous. The family was contacted via phone and 1 family member arrived in person to give consent for intravenous tenecteplase (TNKase). Intravenous tenecteplase was administered at 11:05 AM on 10/26/2023. The patient tolerated the tenecteplase bolus without issues. In view of the patient's clinical findings of the left MCA distribution stroke, she was sent back to the CT scanner for CT angiogram of the head and neck as well as CT of the chest since there was reports of a questionable aortic aneurysm, per patient's family history given in the ER today in room # 11. The results of the CT angiograms were not available for review at the time of this dictation. The patient was transferred to the intensive care unit Bed 11 per NIH stroke protocol and post tenecteplase administration. Today on 10/27/2023 the patient remained stable. The patient is an ICU bed 11. She was easily arousable to verbal and tactile stimuli. Patient trying to cooperate. She still has a dense nonfluent aphasia with severe dysarthria but slightly improved since 10/26/2023. Patient has some slight movement of the fingers of the right hand and right toes but still has significant deficit during motor testing of the right arm and right leg with near paralysis. Extensor plantar response still observed during neurological testing in the right lower extremity. The patient was reevaluated on 10/28/2023 the patient remains alert and cooperative. She still has near paralysis of the right arm and right leg. Patient still has dense nonfluent aphasia but attempts to speak. Repeat noncontrast head CT performed on 10/27/2023 approximately 24 hours after tenecteplase was administered revealed a Large ischemic infarct throughout the entire left MCA distribution producing effacement of the left cortical sulci and 2 mm midline shift to the right and stable left frontal lobe encephalomalacia with subarachnoid hemorrhage and punctate calcification. The patient had a repeat noncontrast head CT on 10/28/2023 to assess for any progression in the left hemispheric mass effect and reported subarachnoid hemorrhage in the remote stroke in the frontal region. This study was essentially unchanged. The patient was transferred to [facility] unit room 252 bed 1 on 10/28/2023. On examination on 10/29/2023. The patient clinically remains unchanged. She is still alert and follows commands using her left upper extremity and left lower extremity. Patient has near right-sided paralysis. The patient was also discovered to have superficial vein thrombosis in the left upper extremity. She is also scheduled for PEG placement. Patient has been evaluated by speech, OT and PT. CT angiogram of the head and neck 10/26/2023 IMPRESSION: 1. Focal calcification in the LEFT mid M1 segment with moderate to severe stenosis. Distal vessel remains patent. However significant decreased vascularity to the second and third order branches MCA territory 2. Suspected developing subacute ischem ia LEFT MCA territory. 3. Intracranial CTA otherwise patent. 4. Approximately 60 to 70% RIGHT proxim al ICA stenosis. RIGHT ICA is patent to the skull base. 5. Prior LEFT carotid endarterectomy. N o significant stenosis. CT angiogram of the head and neck was reviewed with Dr. Rodriguez, radiologist by Dr. Root. I spoke with Dr. Root who informed me that Dr. Rodriguez, radiologist could not determine distinctly if there was a thrombus in the left M1 segment of the left middle cerebral artery but due to the reported suspected developing subacute ischemia in the LEFT MCA on the CT angiogram of the head and neck, Dr. Root informing that the radiologist, Dr. Rodriguez stated that the patient would not be a candidate for thrombectomy secondary to potential for worsening the patient's condition secondary to risks of hemorrhagic changes if the procedure was attempted and therefore the patient was not referred to another facility to be evaluated for thrombectomy. The CT angiogram report also stated patient has history of a previous left carotid endarterectomy. Repeat noncontrast head CT 10/27/2023 approximate 24 hours post tenecteplase revealed: IMPRESSION: 1. Large ischemic infarct throughout th e entire left MCA distribution producing effacement of the left cortical sulci and 2 mm midline shift to the right. 2. Stable left frontal lobe encephaloma lacia with subarachnoid hemorrhage and punctate calcification. Repeat noncontrast head CT 10/28/2023: IMPRESSION: 1. Evolving subacute infarct in the le ft MCA territory. 2. Trace irregular high attenuation in the left frontal lobe similar to the finding on 10/27/2023. Possible trace hemorrhage or occluded vessel. 3. Calcifications in the proximal left middle cerebral artery and in the left frontal lobe adjacent to the aforementioned focus of irregular high attenuation. Possible calcified arterial emboli. 4. Cerebral volume loss with mildly in creased mass effect related to the left MCA territory infarct. Stable 2 mm rightward subfalcine midline shift. Mildly progressive partial effacement of the left lateral ventricle. Drug allergies: Clindamycin which resulted in a rash Penicillins which resulted in a rash Sulfonamide antibiotics which resulted in tongue, lip and throat swelling Tetracycline which resulted in tongue lip and throat swelling Jardiance which resulted in abdominal pain Januvia which resulted in abdominal pain Home medications: Norvasc 5 mg p.o. daily Tylenol 1000 mg p.o. every 6 hours as needed pain Aspirin 81 mg p.o. daily Lipitor 40 mg p.o. q. evening Calcium with vitamin D3 600 mg / 12.5 mcg p.o. daily Zyrtec 10 mg p.o. daily as Pepcid 20 mg p.o. twice daily Lasix 20 mg p.o. twice daily Guaifenesin extended release 600 mg every 12 hours as needed Insulin 100 units subcutaneously Detemir insulin 100 units per 3 mL 50 units subcutaneously twice daily Ketoconazole 2% topical cream to be applied twice a day as needed Synthroid 88 mcg p.o. daily Lisinopril 40 mg p.o. daily Mupirocin 2% topical ointment twice a day Nitroglycerin 0.4 mg tablets sublingual every 5 minutes as needed for chest pain Nystatin 100,000 units/g topical powder applied topically 3 times a day as needed Shelby-3 fatty acid 1000 mg p.o. daily Oxybutynin ER 15 mg p.o. daily Potassium chloride 20 mEq p.o. daily Triamcinolone 0.1% topical cream to be applied daily Past medical history: 60% to 70% stenosis of the proximal righ t internal carotid artery reported on CT angiogram of the head and neck 10/26/2023History of left carotid endarterectomyHypothyroid Type 2 diabetes mellitus, insulin requiring Sleep apnea Obesity Old left frontal lobe infarction with encephalomalacia changes Venous stasis dermatitis Habits: None Review of Systems General: Reports: 10 or mor e systems reviewed and unremarkable except in HPI and below Neuro: Reports: weakness in extremities, la ck of coordination , difficulty walki ng, Slurred speech present and diffi culty communicatin g thoughts Vitals/I&O/Wt Last Vital Signs Temp 98.7 F 10/29/23 08:00 Pulse 63 10/29/23 08:00 Resp 18 10/29/23 08:00 BP 147/64 10/29/23 08:00 Pulse Ox 99 10/29/23 08:00 O2 Del Method Nasal Cannula 10/29/23 08:00 10/28/23 10/29/23 10/29/23 22:59 06:59 14:59 Intake Total 313.75 / 363.75 35 / 398.75 292.917 / 292.917 Output Total 1050 / 1380 Balance 313.75 / 33.75 -1015 / -981.25 292.917 / 292.917 Weight last 48 hrs Weight 181 lb 8 oz Weight 179 lb 10.828 oz Weight 179 lb 10.828 oz Weight 174 lb 14.4 oz Physical Exam 2 Narrative: The patient is alert but nonverbal. She has severe dysarthria and unable to speak. Pupils 4 mm round reactive to light and accommodation. Extraocular movements revealed left gaze preference. There was right lower facial weakness. Motor testing revealed right upper and right lower extremity paralysis. Deep tendon reflexes revealed 1+ in the upper extremities and trace in the lower extremities with extensor plantar response on the right. There was no clonus. Sensory examination revealed neglect on the right side of her body. There was lack of coordination and secondary to paralysis of the right arm and right leg. Throat clear. Lungs clear. Heart regular rhythm and rate. Extremities revealed venous stasis dermatitis and edema in the lower extremities. Urinary Catheter Management: Hood: Cath Placed During This Visit: yes Reason for Continuing Indwelling Catheter: Accurate Measurement of Urinary Output in Critically Ill Patients Urinary Catheter Date of Insertion: 10/27/23 Urinary Catheter Time of Insertion: 08:08 Data 10/29/23 05:32 10/29/23 05:32 A&P Assessment and plan (1) Acute ischemic left MCA stroke: Impression: 1. Acute large MCA distribution stroke manifested as nonfluent aphasia, left gaze preference, and right-sided paralysis 1a. Focal calcification in the LEFT mid M1 segment with moderate to severe stenosis. Distal vessel remains patent. However significant decreased vascularity to the second and third order branches MCA territory and Suspected developing subacute ischemia LEFT MCA territory. The patient was reported not to be a candidate for thrombectomy secondary to subacute ischemic changes in the left MCA territory with potential for worsening of the patient's condition and hemorrhage 1b. Abnormal repeat noncontrast head CT performed on 10/27/2023 approximately 24 hours post tenecteplase administration revealed large ischemic infarct throughout the entire left MCA distribution producing effacement of the left cortical sulci and 2 mm midline shift to the right. Stable left frontal lobe encephalomalacia with subarachnoid hemorrhage and punctate calcification. 1c. Vascular and dural calcifications 2. Administration of tenecteplase (TNKase) on 10/26/2023 at 11:05 AM without acute complications 2a. Remote left frontal lobe infarction with encephalomalacia 3. History of left carotid endarterectomy 3a. 60 to 70% stenosis of the proximal right internal carotid reported on CT angiogram of the head and neck performed on 10/26/2023 4. Insulin requiring type 2 diabetes mellitus 5. Sleep apnea 6. Obesity 7. Venous stasis dermatitis 8. Abdominal hernia 9. History of questionable aortic aneurysm, per patient's family report 10. Hypothyroidism 11. Hypertension 12. Superficial left upper extremity venous thrombosis in the Left Cephalic vein: Occluded with abnormal flow and phasicity. Left Basilic vein: Occluded with abnormal flow and phasicity. Plan: 1. Follow NIH stroke protocol and post tenecteplase administration/intensive care unit treatment 2. Recommend patient be placed on CPAP or BiPAP since the patient was observed to have decreased O2 saturations in the 80s during sleep in the intensive care unit bed #11 and the patient has history of sleep apnea 3. Agree with obtaining CT angiogram of the chest to assess for aortic aneurysm 4. Patient scheduled for repeat noncontrast head CT to assess for worsening of left see left MCA distribution cerebral edema/mass effect and to evaluate any worsening of the reported subarachnoid hemorrhage in the remote stroke with encephalomalacia in the left frontal region. Note: Patient status post tenecteplase administration(tenecteplase given at 11:05 AM on 10/26/2023). Repeat Noncontrast head CT scheduled for 12 PM on 10/28/2023 5. Resume Lipitor 24 hours post tenecteplase administered 6. Recommend holding low-dose aspirin 81 mg p.o. every morning secondary to reports of left MCA distribution cerebral edema with mass effect and subarachnoid hemorrhage in the old left frontal lobe stroke with encephalomalacia reported on noncontrast head CT scan performed on 10/27/2023 approximately 24 hours post tenecteplase administration 7. Continue neurochecks and vitals per NIH stroke protocol and post thrombolytics (tenecteplase) administration 8. Recommend continuing occupational therapy, physical therapy and speech therapy for nonfluent aphasia, and right-sided paralysis 9. Keep head of bed elevated at 30 degrees as tolerated 10. Use normal saline for IV fluids and no hypotonic fluids (hypotonic fluids may potentially increase the cerebral edema reported on noncontrast head CT) 11. Agree with plans for patient undergo PEG placement for nutrition (this procedure is scheduled for 10/29/2023) 12. Recommend resuming aspirin using aspirin suppository 300 mg daily 24 hours after PEG placement (PEG placement scheduled for 10/29/2023 at 11:30 AM) Attestations 2 Medical Necessity Statement*: Patient evaluated by neurology for left MCA distribution stroke with edema and mass effect and reports of subarachnoid hemorrhage in the remote stroke with encephalomalacia in the left frontal region Coding Level of Care Code 48945 Diagnoses Acute ischemic left MCA stroke I63.512
--- NOTE | 2023-10-29 10:45 | P.CONIM_ITS ---
Providers/Reason For Consult 2 Consulting Physician/Specialty*: Dr. Pavan Andrade, DO/General surgery Reason for Consult*: PEG tube placement Attending Physician: Sumanth Lemus Primary Care Provider: VERONICA Ram History of Present Illness History of Present Illness Christina Julien is a 83 year old female who is currently in the hospital being treated for a stroke. HPI and review of systems are limited secondary to patient's post stroke status. She is not improving very quickly and is having difficulty swallowing. Family would like to proceed with a PEG tube Review of Systems 2 General: Reports: ROS unobtainable due to medical condition Medications/Allergies Home Medications Medication Instructions Recorded Confirmed Last Taken Type Diabetic shoes with 3 inserts #1 ea 04/12/21 10/26/23 Unknown Rx Diabetic shoes #1 ea 05/06/21 10/26/23 Unknown Rx nitroglycerin 0.4 mg sublingual 0.4 mg sublingual Q5M PRN chest 12/22/21 10/26/23 Unknown Rx tablet pain #25 tabs adult protective underwear #1 ea 04/27/22 10/26/23 Unknown Rx pen needle, diabetic 31 gauge x #200 ea 10/23/22 10/26/23 Unknown Rx 3/16 (Comfort EZ Pen [place]) adult protective large underwear #1 ea 10/31/22 10/26/23 Unknown Rx acetaminophen 500 mg capsule 1,000 mg PO Q6H PRN Pain 02/12/23 10/26/23 Unknown History aspirin 81 mg tablet,delayed 81 mg PO DAILY 02/12/23 10/26/23 Unknown History release ascorbic acid (vitamin C) 1,000 mg 500 mg (1/2 x 1,000 mg) PO DAILY 02/16/23 10/26/23 Unknown Rx tablet 30 days #30 tabs diabetic shoes with 3 inserts #1 ea 02/27/23 10/26/23 Unknown Rx mupirocin 2 % topical ointment 1 applic topical BID #22 grams 07/26/23 10/26/23 Unknown Rx furosemide 20 mg tablet 20 mg PO BID 30 days #60 tabs 08/14/23 10/26/23 Unknown Rx potassium chloride 20 mEq 20 meq PO DAILY #30 tabs 08/14/23 10/26/23 Unknown Rx tablet,extended release amlodipine 5 mg tablet 5 mg PO DAILY #90 tabs 08/16/23 10/26/23 Unknown Rx atorvastatin 40 mg tablet 40 mg PO DAILY 30 days #30 tabs 08/16/23 10/26/23 Unknown Rx blood sugar diagnostic (Blood #200 ea 08/16/23 10/26/23 Unknown Rx Glucose Test strips) calcium carbonate 600 mg-vitamin 1 cap PO DAILY 30 days #30 caps 08/16/23 10/26/23 Unknown Rx D3 12.5 mcg (500 unit) capsule (Calcium 600 with Vitamin D3) cetirizine 10 mg tablet (Zyrtec) 10 mg PO DAILY 30 days #30 tabs 08/16/23 10/26/23 Unknown Rx famotidine 20 mg tablet 20 mg PO BID 30 days #60 tabs 08/16/23 10/26/23 Unknown Rx guaifenesin 600 mg tablet, 600 mg PO Q12H PRN congestion 30 08/16/23 10/26/23 Unknown Rx extended release 12 hr (Mucinex) days #60 tabs insulin aspart U-100 100 unit/mL See Rx Instructions SUBCUT TID 30 08/16/23 10/26/23 Unknown Rx subcutaneous cartridge (Novolog days #3 ea PenFill U-100 Insulin aspart) insulin detemir U-100 100 unit/mL 50 unit (0.5 mL) SUBCUT BID 30 08/16/23 10/26/23 Unknown Rx (3 mL) subcutaneous pen days #30 mL ketoconazole 2 % topical cream 1 applic topical BID PRN rash #15 08/16/23 10/26/23 Unknown Rx grams lancets 31 gauge #200 ea 08/16/23 10/26/23 Unknown Rx levothyroxine 88 mcg tablet 88 mcg PO DAILY #30 tabs 08/16/23 10/26/23 Unknown Rx lisinopril 40 mg tablet 40 mg PO DAILY #90 tabs 08/16/23 10/26/23 Unknown Rx nystatin 100,000 unit/gram topical 1 applic topical BID PRN rash #30 08/16/23 10/26/23 Unknown Rx ointment grams nystatin 100,000 unit/gram topical 1 applic topical TID PRN rash #60 08/16/23 10/26/23 Unknown Rx powder grams omega-3 fatty acids 1,000 mg 1,000 mg PO DAILY 30 days #30 caps 08/16/23 10/26/23 Unknown Rx capsule oxybutynin chloride 15 mg 15 mg PO DAILY 30 days #30 tabs 08/16/23 10/26/23 Unknown Rx tablet,extended release 24 hr triamcinolone acetonide 0.1 % 1 applic topical DAILY 30 days #80 08/16/23 10/26/23 Unknown Rx topical cream grams Allergies Allergy/AdvReac Type Severity Reaction Status Date / Time clindamycin Allergy ALGY-Rash Verified 09/25/23 11:02 lidocaine Allergy ALGY-Rash Verified 10/28/23 22:51 Penicillins Allergy ALGY-Rash Verified 09/25/23 11:02 Sulfa (Sulfonamide Allergy ALGY-Swell Verified 09/25/23 11:02 Antibiotics) Lip/Tongue/Throat tetracycline Allergy ALGY-Swell Verified 09/25/23 11:02 Lip/Tongue/Throat empagliflozin AdvReac Intermediate ADR-Abdominal Verified 09/25/23 11:02 [From Jardiance] Pain sitagliptin [From Brettuvia] AdvReac Intermediate ADR-Abdominal Verified 09/25/23 11:02 Pain Current Medications Generic Name Dose Route Start Last Admin Trade Name Freq PRN Reason Stop Dose Admin Atorvastatin Calcium 20 mg 10/26/23 21:00 10/28/23 22:15 Atorvastatin 40 Mg Tablet PO Not Given BEDTIME MANNIE Camphor/Menthol/Phenol 1 applic 10/27/23 21:15 10/28/23 00:13 Blistex Lip Oint 7 Gm Tube TOPICAL 1 applic PRN PRN Administration DRYNESS Sodium Chloride 1,000 mls @ 75 mls/hr 10/26/23 13:21 10/29/23 08:22 Sodium Chloride 0.9% IV Infused .[id number] MANNIE Infusion Meropenem 1,000 mg/ Sodium 50 mls @ 100 mls/hr 10/26/23 17:00 10/29/23 10:14 Chloride IV 100 mls/hr Q8H MANNIE Administration Protocol Insulin Glargine 50 unit 10/26/23 21:00 10/28/23 21:56 Insulin Glargine 100 Units/1 Ml SUBCUT 50 unit BEDTIME MANNIE Administration Insulin Human Lispro 0 unit 10/26/23 13:21 10/29/23 06:46 Insulin Lispro 100 Unit/1 Ml SUBCUT 4 unit Q6H MANNIE Administration Protocol Morphine Sulfate 2 mg 10/26/23 13:21 10/27/23 21:00 Morphine 4 Mg/Ml Sdv 1 Ml IVP 2 mg Q4H PRN Administration SEVERE PAIN Pantoprazole Sodium 40 mg 10/26/23 14:00 10/28/23 17:53 Pantoprazole 40 Mg Sdv IVP 40 mg Q24H MANNIE Administration Tenecteplase 19 mg 10/26/23 10:49 10/26/23 11:05 Tenecteplase 50mg Kit (Stroke) 0.25 mg/kg (19 mg) 19 mg IVP Administration ONCE PRN See Dose Instructions Protocol PFSH Acute 2 PFSH: Medical History Cellulitis Heart murmur, systolic Diabetic foot Atherosclerosis Vasovagal episode Chemical induced allergic contact dermatitis Chronic low back pain Osteoarthritis (arthritis due to wear and tear of joints) Polyarthralgia Thyroid nodule Leg swelling Venous stasis dermatitis Vaginal candidiasis Vitamin D deficiency Medication refill Lower extremity edema Environmental and seasonal allergies Chronic GERD Diabetes Noncompliance Asymptomatic bilateral carotid artery stenosis Dyslipidemia Hypothyroidism (acquired) Essential hypertension Adult onset hypothyroidism Enrolled in chronic care management Surgical History H/O thyroidectomy History of cholecystectomy Family History Father CAD (coronary artery disease), Onset Age: 56 [place] Mother Diabetes Stroke Family/Other Cancer Brother Lung disease Other Hypertension Denies family history of Clotting disorder Dementia Chronic kidney disease (CKD) Suicide Anesthesia complication Bleeding disorder Social History Smoking and tobacco/nicotine status: never used tobacco/nicotine Second hand smoke exposure: No Alcohol intake: never Substance/Drug Use: never Adopted: No Caregiver/support person: No Lives independently: Yes Household members: children Housing: House Marital status: / Number of children: 4 service: No Current occupational status: retired Do you think of yourself as: Straight/Heterosexual Current gender identity: Female Vitals/I&O/Wt Last Vital Signs Temp 98.7 F 10/29/23 08:00 Pulse 63 10/29/23 08:00 Resp 18 10/29/23 08:00 BP 147/64 10/29/23 08:00 Pulse Ox 99 10/29/23 08:00 O2 Del Method Nasal Cannula 10/29/23 08:00 10/28/23 10/29/23 10/29/23 22:59 06:59 14:59 Intake Total 313.75 / 363.75 35 / 398.75 292.917 / 292.917 Output Total 1050 / 1380 Balance 313.75 / 33.75 -1015 / -981.25 292.917 / 292.917 Weight last 48 hrs Weight 181 lb 8 oz Weight 179 lb 10.828 oz Weight 179 lb 10.828 oz Physical Exam 2 Narrative: General : Patient is well developed , no acute distress Head : Normal cephalic, a-traumatic. Ears : Pinnae and external canal are normal. Eyes : PERRLA, Sclera and injection are normal. No conjunctival discharge. Nose : Mucous membranes are without erythema. Throat : buccal mucosa is normal, gums are without significant recession or hypertrophy. Lungs : Equal chest rise bilaterally, no use of accessory muscles, trachea is midline. Cor : Rate and rhythm are normal. Abdomen : Soft, ND, NT, no g/r/m Extremities : No edema, no cyanosis or clubbing, dorsalis pedis pulses are present bilaterally, non-tender to palpation of calves. Right-sided weakness Back : non-tender to palpation, no CVA tenderness. Neuro : Right hemiparesis Urinary Catheter Management: Hood: Cath Placed During This Visit: yes Reason for Continuing Indwelling Catheter: Accurate Measurement of Urinary Output in Critically Ill Patients Urinary Catheter Date of Insertion: 10/27/23 Urinary Catheter Time of Insertion: 08:08 Data 10/29/23 05:32 10/29/23 05:32 A&P Assessment and plan (1) Acute ischemic left MCA stroke: Plan Percutaneous endoscopic gastrostomy tube placement none The risks and benefits of the procedure, including bleeding, infection, intestinal perforation requiring surgery, missed lesion were explained to the patient. The patient is understanding of the risks and wishes to proceed. Coding Level of Care Code 23875 Diagnoses Acute ischemic left MCA stroke I63.512
--- NOTE | 2023-10-29 11:29 | PC.OT ---
HOLD OT TREATMENT TODAY DUE TO EGD SCHEDULED AT NOON
[2023-10-29] MEDS: sodium chloride 0.9% 1,000 ML 30 ML IV (11:48)
[2023-10-29 12:20] LABS: Glucose Point of Care 139 mg/dL (70-110)
--- NOTE | 2023-10-29 13:22 | P.ANESASSM_ITS ---
Pre-Anesthetic Assessment Height/Weight: Height 1.52 m Weight 82.327 kg Temp Pulse Resp BP Pulse Ox O2 Del Method O2 Flow Rate 97.9 F 57 L 18 135/44 100 Nasal Cannula 2.5 10/29/23 11:50 10/29/23 11:50 10/29/23 11:50 10/29/23 11:50 10/29/23 11:50 10/29/23 11:50 10/29/23 11:50 Operation Date: 10/29/23 12:00 Proposed Procedures p EGD(Not Applicable) - Pavan Andrade DO s PEG Tube Insertion(Not Applicable) - Pavan Andrade DO Familial anesthetic complications: none Was Beta Doug taken within 24 hours: N/A Was Clonidine taken within 24 hours: N/A Social No alcohol and No tobacco Exam alert, clear to auscultation bilaterally and regular rate & rhythm Airway Submandibular: within normal limits Cervical ROM: within normal limits Mallampati: Class I Dentition: false CV/HEM Coronary Artery Disease, Hypertension and Peripheral Vascular Disease GI Gastroesophageal Reflux Disease Metabolic Diabetes Mellitus, Hyperlipidemia and Morbid Obesity [facility] [place] Osteoarthritis/DJD Neuropsych Cerebrovascular Accident Anesthetic Plan ASA status: 3 Anesthesia: MAC Medications/Allergies Home Medications Medication Instructions Recorded Confirmed Last Taken Type Diabetic shoes with 3 inserts #1 ea 04/12/21 10/26/23 Unknown Rx Diabetic shoes #1 ea 05/06/21 10/26/23 Unknown Rx nitroglycerin 0.4 mg sublingual 0.4 mg sublingual Q5M PRN chest 12/22/21 10/26/23 Unknown Rx tablet pain #25 tabs adult protective underwear #1 ea 04/27/22 10/26/23 Unknown Rx pen needle, diabetic 31 gauge x #200 ea 10/23/22 10/26/23 Unknown Rx 3/16 (Comfort EZ Pen [place]) adult protective large underwear #1 ea 10/31/22 10/26/23 Unknown Rx acetaminophen 500 mg capsule 1,000 mg PO Q6H PRN Pain 02/12/23 10/26/23 Unknown History aspirin 81 mg tablet,delayed 81 mg PO DAILY 02/12/23 10/26/23 Unknown History release ascorbic acid (vitamin C) 1,000 mg 500 mg (1/2 x 1,000 mg) PO DAILY 03/24/23 12/01/23 Unknown Rx tablet 30 days #30 tabs diabetic shoes with 3 inserts #1 ea 02/27/23 10/26/23 Unknown Rx mupirocin 2 % topical ointment 1 applic topical BID #22 grams 07/26/23 10/26/23 Unknown Rx furosemide 20 mg tablet 20 mg PO BID 30 days #60 tabs 08/14/23 10/26/23 Unknown Rx potassium chloride 20 mEq 20 meq PO DAILY #30 tabs 08/14/23 10/26/23 Unknown Rx tablet,extended release amlodipine 5 mg tablet 5 mg PO DAILY #90 tabs 08/16/23 10/26/23 Unknown Rx atorvastatin 40 mg tablet 40 mg PO DAILY 30 days #30 tabs 08/16/23 10/26/23 Unknown Rx blood sugar diagnostic (Blood #200 ea 08/16/23 10/26/23 Unknown Rx Glucose Test strips) calcium carbonate 600 mg-vitamin 1 cap PO DAILY 30 days #30 caps 08/16/23 10/26/23 Unknown Rx D3 12.5 mcg (500 unit) capsule (Calcium 600 with Vitamin D3) cetirizine 10 mg tablet (Zyrtec) 10 mg PO DAILY 30 days #30 tabs 08/16/23 10/26/23 Unknown Rx famotidine 20 mg tablet 20 mg PO BID 30 days #60 tabs 08/16/23 10/26/23 Unknown Rx guaifenesin 600 mg tablet, 600 mg PO Q12H PRN congestion 30 08/16/23 10/26/23 Unknown Rx extended release 12 hr (Mucinex) days #60 tabs insulin aspart U-100 100 unit/mL See Rx Instructions SUBCUT TID 30 08/16/23 10/26/23 Unknown Rx subcutaneous cartridge (Novolog days #3 ea PenFill U-100 Insulin aspart) insulin detemir U-100 100 unit/mL 50 unit (0.5 mL) SUBCUT BID 30 08/16/23 10/26/23 Unknown Rx (3 mL) subcutaneous pen days #30 mL ketoconazole 2 % topical cream 1 applic topical BID PRN rash #15 08/16/23 10/26/23 Unknown Rx grams lancets 31 gauge #200 ea 08/16/23 10/26/23 Unknown Rx levothyroxine 88 mcg tablet 88 mcg PO DAILY #30 tabs 08/16/23 10/26/23 Unknown Rx lisinopril 40 mg tablet 40 mg PO DAILY #90 tabs 08/16/23 10/26/23 Unknown Rx nystatin 100,000 unit/gram topical 1 applic topical BID PRN rash #30 08/16/23 10/26/23 Unknown Rx ointment grams nystatin 100,000 unit/gram topical 1 applic topical TID PRN rash #60 08/16/23 10/26/23 Unknown Rx powder grams omega-3 fatty acids 1,000 mg 1,000 mg PO DAILY 30 days #30 caps 08/16/23 10/26/23 Unknown Rx capsule oxybutynin chloride 15 mg 15 mg PO DAILY 30 days #30 tabs 08/16/23 10/26/23 Unknown Rx tablet,extended release 24 hr triamcinolone acetonide 0.1 % 1 applic topical DAILY 30 days #80 08/16/23 10/26/23 Unknown Rx topical cream grams Allergies Allergy/AdvReac Type Severity Reaction Status Date / Time clindamycin Allergy ALGY-Rash Verified 09/25/23 11:02 lidocaine Allergy ALGY-Rash Verified 10/28/23 22:51 Penicillins Allergy ALGY-Rash Verified 09/25/23 11:02 Sulfa (Sulfonamide Allergy ALGY-Swell Verified 09/25/23 11:02 Antibiotics) Lip/Tongue/Throat tetracycline Allergy ALGY-Swell Verified 09/25/23 11:02 Lip/Tongue/Throat empagliflozin AdvReac Intermediate ADR-Abdominal Verified 09/25/23 11:02 [From Jardiance] Pain sitagliptin [From Januvia] AdvReac Intermediate ADR-Abdominal Verified 09/25/23 11:02 Pain Current Medications Generic Name Dose Route Start Last Admin Trade Name Freq PRN Reason Stop Dose Admin Atorvastatin Calcium 20 mg 10/26/23 21:00 10/28/23 22:15 Atorvastatin 40 Mg Tablet PO Not Given BEDTIME MANNIE Camphor/Menthol/Phenol 1 applic 10/27/23 21:15 10/28/23 00:13 Blistex Lip Oint 7 Gm Tube TOPICAL 1 applic PRN PRN Administration DRYNESS Sodium Chloride 1,000 mls @ 75 mls/hr 10/26/23 13:21 10/29/23 08:22 Sodium Chloride 0.9% IV Infused .[id number] MANNIE Infusion Meropenem 1,000 mg/ Sodium 50 mls @ 100 mls/hr 10/26/23 17:00 10/29/23 10:53 Chloride IV Infused Q8H MANNIE Infusion Protocol Sodium Chloride 1,000 mls @ 30 mls/hr 10/29/23 11:45 10/29/23 12:41 Sodium Chloride 0.9% IV 10/30/23 11:44 Infused .Q24H MANNIE Infusion Insulin Glargine 50 unit 10/26/23 21:00 10/28/23 21:56 Insulin Glargine 100 Units/1 Ml SUBCUT 50 unit BEDTIME MANNIE Administration Insulin Human Lispro 0 unit 10/26/23 13:21 10/29/23 06:46 Insulin Lispro 100 Unit/1 Ml SUBCUT 4 unit Q6H MANNIE Administration Protocol Morphine Sulfate 2 mg 10/26/23 13:21 10/27/23 21:00 Morphine 4 Mg/Ml Sdv 1 Ml IVP 2 mg Q4H PRN Administration SEVERE PAIN Pantoprazole Sodium 40 mg 10/26/23 14:00 10/28/23 17:53 Pantoprazole 40 Mg Sdv IVP 40 mg Q24H MANNIE Administration Tenecteplase 19 mg 10/26/23 10:49 10/26/23 11:05 Tenecteplase 50mg Kit (Stroke) 0.25 mg/kg (19 mg) 19 mg IVP Administration ONCE PRN See Dose Instructions Protocol PFSH Anesthesia Medical History Cellulitis Heart murmur, systolic Diabetic foot Atherosclerosis Vasovagal episode Chemical induced allergic contact dermatitis Chronic low back pain Osteoarthritis (arthritis due to wear and tear of joints) Polyarthralgia Thyroid nodule Leg swelling Venous stasis dermatitis Vaginal candidiasis Vitamin D deficiency Medication refill Lower extremity edema Environmental and seasonal allergies Chronic GERD Diabetes Noncompliance Asymptomatic bilateral carotid artery stenosis Dyslipidemia Hypothyroidism (acquired) Essential hypertension Adult onset hypothyroidism Enrolled in chronic care management Surgical History H/O thyroidectomy History of cholecystectomy Family History Father CAD (coronary artery disease), Onset Age: 56 [place] Mother Diabetes Stroke Family/Other Cancer Brother Lung disease Other Hypertension Denies family history of Clotting disorder Dementia Chronic kidney disease (CKD) Suicide Anesthesia complication Bleeding disorder Social History Smoking and tobacco/nicotine status: never used tobacco/nicotine Second hand smoke exposure: No Alcohol intake: never Substance/Drug Use: never Adopted: No Caregiver/support person: No Lives independently: Yes Household members: children Housing: House Marital status: / Number of children: 4 service: No Current occupational status: retired Do you think of yourself as: Straight/Heterosexual Current gender identity: Female Data Anesthesia 10/29/23 05:32 10/29/23 05:32 Short CBC 10/28/23 10/29/23 Range/Units 10:49 05:32 WBC 9.44 11.08 (3.29-11.43) 10^3/uL Hgb 9.60 L 9.20 L (11.27-16.99) g/dL Hct 30.5 L 30.1 L (36-47) % MCV 92.7 96.2 (85-98) fl Plt Count 147 L 138 L (157-399) 10^3/cmm Neut % (Auto) 68.3 65.5 % Neut # (Auto) 6.44 7.26 (1.8-7.7) 10^3/uL BMP 10/28/23 10/29/23 10:49 05:32 Sodium 140 139 Potassium 4.2 3.9 Chloride 106 105 Carbon Dioxide 25 22 BUN 7 L 7 L Creatinine 0.6 0.6 Glucose 198 H 164 H Calcium 8.8 8.6 Liver Function 10/28/23 10/29/23 Range/Units 10:49 05:32 Total Bilirubin 0.7 0.9 (0.15-1.2) mg/dL AST 27 24 (0-32) U/L ALT 18 14 (0-33) U/L Alkaline Phosphatase 80 68 (35-105) U/L Albumin 3.7 3.2 L (3.5-5.2) g/dL ABG 10/28/23 15:50 Specimen Type Arterial Sample Site Radial, right ABG pH 7.45 ABG pCO2 38.3 ABG pO2 57.0 L ABG PO2/FiO2 Ratio 0 ABG HCO3 26.6 H ABG O2 Saturation 91.3 ABG Base Excess 2.6 H A-a O2 Gradient 5.8 O2 Delivery Device Room air FiO2 21.0 Cardiac Studies: 2 Echocardiogram 10/27/23
--- NOTE | 2023-10-29 13:23 | ANE.PACU2 ---
Inpatient post-anesthesia follow up: Airway intact: Yes Vital signs: Temperature 97.9 F Pulse Rate 57 Respiratory Rate 18 Blood Pressure 135/44 Pulse Oximetry 100 Oxygen Delivery Me thod Nasal Cannula Oxygen Flow Rate 2.5 Fraction of Inspir ed Oxygen Hydration adequate: Yes Nausea and vomiting: No Pain level: 2 Mental status: Baseline
[2023-10-29] MEDS: sodium chloride 0.9% 1,000 ML 75 ML IV ×2 (14:25→20:51)
[2023-10-29 18:01] LABS: Glucose Point of Care 171 mg/dL (70-110)
[2023-10-29] MEDS: pantoprazole 40 mg SDV IVP (18:18)
--- NOTE | 2023-10-29 20:42 | P.PN_ITS ---
Subjective 2 Subjective: She is more interactive. Has been interacting more with family, to be in a positive mood, although does not seem to be oriented or able to comprehend the situation. Vitals/I&O/Wt Last Vital Signs Temp 99.4 F 10/29/23 18:44 Pulse 66 10/29/23 18:44 Resp 17 10/29/23 18:44 BP 153/71 10/29/23 18:44 Pulse Ox 100 10/29/23 16:00 O2 Del Method Nasal Cannula 10/29/23 11:50 O2 Flow Rate 2 10/29/23 16:00 10/29/23 10/29/23 10/29/23 06:59 14:59 22:59 Intake Total 35 / 398.75 817.917 / 817.917 50 / 867.917 Output Total 1050 / 1380 600 / 600 Balance -1015 / -981.25 217.917 / 217.917 50 / 267.917 Weight last 48 hrs Weight 82.327 kg Weight 81.5 kg Weight 81.5 kg Physical Exam 2 Narrative: Accompanied by family Const: COMMON NORMALS: alert; negative for patient oriented x3 GENERAL APPEARANCE: cooperative O RIENTATION/CONSCIOUSNESS: Yes awake HENMT: COMMON NORMALS: oropharynx normal OTHER: Poor control of oral musculature. Neck/C-Spine: COMMON NORMALS: no JVD Resp: COMMON NORMALS: normal respiratory effort and clear to auscultation bilaterally AUSCULTATION: clear to auscultation bilaterally Cardio: COMMON NORMALS: no JVD, regular rhythm, S1 normal heart sound present, S2 normal heart sound present and No murmurs present (Cardio) RHYTHM: regular rhythm HEART SOUNDS: S1 normal heart sound present and S2 normal heart sound present GI: COMMON NORMALS: Normal to inspection, nondistended, normoactive bowel sounds present, Soft to palpation and non-tender PALPATION: Yes Soft to palpation Extremity: COMMON NORMALS: no joint enlargement and no pedal edema Neuro: COMMON NORMALS: negative for patient oriented x3 S ENSORIUM/ORIENTATION: Yes alert OTHER: Right-sided hemiparesis. Right-sided facial droop. Skin: COMMON NORMALS: no rashes or lesions noted GENERAL SKIN EXAM: no rashes or lesions noted Urinary Catheter Management: Hood: Cath Placed During This Visit: yes Reason for Continuing Indwelling Catheter: Other Urinary Catheter Date of Insertion: 10/27/23 Urinary Catheter Time of Insertion: 08:08 Data 10/29/23 05:32 10/29/23 05:32 A&P Assessment and plan (1) Acute ischemic left MCA stroke: Aspirin has been on hold due to finding of possible trace left frontal lobe hemorrhagic transformation. Unable to tolerate oral intake. PEG placement tube today. Reviewed neurology documentation. Recommending aspirin restarted TN after PEG tube. Post thrombolytics. Reviewed CBC, chemistry. Reviewed chest x-ray, PICC line has been placed today. Recommended advancement. Continue PT, OT, ST, post discharge planning. Discussed with manager of case management. Echocardiogram done shows normal EF with grade 1 diastolic dysfunction with mild MR. Keep mean arterial pressure around 65. Patient not safe to have oral diet as per speech evaluation. Restart statin when possible. (2) Thrombolytic medication administered within last 5 days: Appreciate neurology recommendations. Hood catheter placed. Will restart heparin 5000 through 12 hourly from afternoon for DVT prophylaxis. Appreciate [address] head. (3) Hypotension: Stop normal saline. Noted low rate NS ordered by anesthesia until tomorrow. Hypotension so far has resolved. Patient does have significant hypotension. Maintain mean artery pressure over 65. Wean Levophed accordingly. No signs of infection for now. Appreciate UA. Patient does have mild leukocytosis which could be reactionary to acute stroke yesterday. For now we will continue with IV meropenem. Follow-up blood cultures. Hypotension most likely from dehydration and neurogenic. (4) Diabetes: Recent A1c more than 9. Blood sugars better controlled now. Continue to monitor. Insulin sliding scale at moderate dose protocol every 6 hourly. Glargine 50 units at bedtime. Patient takes glargine 50 units twice daily along with sliding scale. Qualifiers: Diabetes mellitus type: type 2 Diabetes mellitus emt intermediate insulin use: with mcfp use Diabetes mellitus complication status: with other specified complication Qualified Code(s): E11.69 - Type 2 diabetes mellitus with other specified complication; Z79.4 - termination clerk (current) use of insulin (5) Hyperkalemia: Resolved. (6) Hyponatremia: Resolved. Most likely pseudohyponatremia in setting of hyperglycemia. Normal saline as above. Repeat BMP daily. (7) Acute kidney injury: Resolved. Monitor BMP daily. (8) Hypothyroidism (acquired): Patient not able to take orally. Will switch to IV levothyroxine 44 mcg every morning from tomorrow. Appreciate TSH levels. (9) Essential hypertension: Goal blood pressure is above. Hold off on antihypertensives. (10) Noncompliance: Plan Obstructive sleep apnea: Will confirm if patient uses CPAP. If does well continue nightly. Right arm swelling: Reviewed duplex ultrasound, noted superficial thrombophlebitis. Elevate LUE. Discussed with family. Shoulder x-ray. CODE STATUS: Discussed with sister at bedside. For now we will remain full code. Patient's daughter is DPOA is not at bedside. NPO. Protonix for PUD prophylaxis SCDs for DVT prophylaxis. Discharge plan: Initially consideration of return home, discussed with manager of case management, however, on discussion with family, they are considering SNF. She is per discussion with PT moderate to max assist. C Attestations 2 Medical Necessity Statement*: Continue admission for assessment management of MCA CVA, possible component of hemorrhagic transformation, unable to tolerate oral intake, PEG tube placement, additional comorbidities as above. and High MDM includes number and complexity of problems actively addressed during encounter and amount and/or complexity of data reviewed/ordered [ previous or external records, resulted lab(s)/test(s), ordered lab(s)/test(s), independent historian and other healthcare professional discussion] as documented Diagnoses Acute ischemic left MCA stroke I63.512 Thrombolytic medication administered within last 5 days Z78.9 Hypotension I95.9 Type 2 diabetes mellitus with other specified complication, with long-term current use of insulin E11.69; Z79.4 Diabetes mellitus type: type 2 Diabetes mellitus emt intermediate insulin use: with emt intermediate use Diabetes mellitus complication status: with other specified complication Hyperkalemia E87.5 Hyponatremia E87.1 Acute kidney injury N17.9 Hypothyroidism (acquired) E03.9 Essential hypertension I10 Noncompliance Z91.19
[2023-10-29 20:52] LABS: Glucose Point of Care 140 mg/dL (70-110)
[2023-10-29] MEDS: insulin glargine 100 units/1 mL 50 UNIT SUBCUT (21:07)
[2023-10-30] VITALS (9 sets, daily range): BP systolic 143–164; BP diastolic 60–80; PULSE 62–95; RESP 16–19; TEMP 36.2–36.9; O2SAT 98–100
[2023-10-30 00:54] LABS: Glucose Point of Care 143 mg/dL (70-110)
[2023-10-30] MEDS: insulin lispro 100 unit/1 mL SUBCUT (00:59)
[2023-10-30] MEDS: meropenem 1,000 MG in sodium chloride 0.9% (plus) 50 ML 100 MG IV ×2 (00:59→08:51)
[2023-10-30 06:10] LABS: Glucose Point of Care 105 mg/dL (70-110)
[2023-10-30 06:29] LABS: Basophils % 0.3 %; Eosinophils # 0.1 10^3/uL (0.0-0.8); Eosinophils % 0.7 %; Hematocrit 28.1 % (36-47); Lymphocytes % 30.5 %; Mean Corpuscular HGB Conc 31.3 g/dL (30-55); Mean Corpuscular Hemoglobin 29.2 pg (27-33); Mean Corpuscular Volume 93.4 fl (85-98); Mean Platelet Volume 11.1 fL (7.4-10.4); Monocytes # 0.7 10^3/uL (0.2-0.9); Monocytes % 7.3 %; Neutrophils # 5.89 10^3/uL (1.8-7.7); Neutrophils % 60.9 %; Nucleated Red Blood Cells % 0 %; Platelet Count 163 10^3/cmm (157-399); Red Blood Count 3.01 10^6/uL (3.85-5.65); White Blood Count 9.68 10^3/uL (3.29-11.43)
[2023-10-30 06:52] LABS: Anion Gap 12.7 (5-19); Blood Urea Nitrogen 11 mg/dL (8-23); Calcium 8.8 mg/dL (8.5-10.5); Carbon Dioxide 27 mmol/L (22-29); Chloride 108 mmol/L (98-107); Glucose 126 mg/dL (65-115); Osmolality Calculated 299 mOsm/kg (285-295); Potassium 3.7 mmol/L (3.5-5.1); Sodium 144 mmol/L (136-145)
[2023-10-30 07:29] LABS: Procalcitonin 0.06 ng/mL (0-0.5)
--- NOTE | 2023-10-30 09:43 | PC.CHAP ---
Pastoral Care Encounter/Spiritual Assessment Type of Contact [] Declined molasses feed mixer visit [] Patient/Family/Request visit [] Outpatient visit [] Follow-up visit [] Physician referral [] Code/Alert [] Routine visit [] Staff referral [] Actively dying [x] Patient sleeping [x] Family support [] [] Out of room [] Palliative care [] [] Receiving care in room [] Pre-surgical visit [] Trauma [] Long length of stay [] ICU visit [] Other: Relational/Emotional Strength [] Patient feels connected with others/family/visitors/staff [] Distress [] Loneliness/isolation [] Abandonment Spirituality of Patient [] Person of Magdalena [] Attends Restorationism of their Magdalena [] Believes in Prayer [] Reads Bible or Denominational materials [] There are Spiritual issues to be addressed Senior Sales Operations Manager Interventions [x] Prayer [x] Active listening [x] Non-anxious presence [x] Spiritual/emotional support [] Crisis/trauma care [] Spiritual counseling [] Bereavement support [] Provided bereavement packet [] Provided Bible/devotional materials [] Provided toy/stuffed animal, coloring book to patient or family member [] Provided Communion [] Anointing/[place] [] Salvation [x] Completed spiritual assessment [] Other: Impact on Illness or Injury [] Angry [] Fearful [] Anxious [] Often cries [] Exhaustion [] Unable to work [] Unable to attend gnosticist [] Unable to walk/stand [] Unable to read [] Unable to drive [] Unable to eat/drink [] Unable to sleep [] Unable to be with family [] Patient intubated [] Other: Summary Time spent with patient 5 min
--- NOTE | 2023-10-30 10:36 | PC.NUTR ---
Begin EN via PEG with Glucerna 1.2 @ 1200 ml/day -Bolus: 355 ml @breakfast, 475 ml @lunch, 355 ml @dinner -FWF: 150 ml TID If continuous regimen is considered: Glucerna 1.2 @ 50 ml/hr x24 hours
[2023-10-30] MEDS: aspirin 300 mg Supp PR (11:07)
[2023-10-30 11:26] LABS: Glucose Point of Care 103 mg/dL (70-110)
--- NOTE | 2023-10-30 13:06 | P.PN_ITS ---
Subjective 2 Subjective: When asked if she is doing all right she smiles, nods yes. Vitals/I&O/Wt Last Vital Signs Temp 97.6 F 10/30/23 11:19 Pulse 76 10/30/23 11:19 Resp 16 10/30/23 11:19 BP 158/64 10/30/23 11:19 Pulse Ox 100 10/30/23 11:19 O2 Del Method Nasal Cannula 10/30/23 11:19 O2 Flow Rate 2 10/30/23 08:00 10/29/23 10/30/23 10/30/23 22:59 06:59 14:59 Intake Total 1247 / 2064.917 50 / 2114.917 50 / 50 Output Total 700 / 1300 Balance 1247 / 1464.917 -650 / 814.917 50 / 50 Weight last 48 hrs Weight 79.832 kg Weight 82.327 kg Physical Exam 2 Const: COMMON NORMALS: alert; negative for patient oriented x3 GENERAL APPEARANCE: cooperative (Squeezes left hand, wiggles toes on the left foot) ORIENTATION/CONSCIOUSNESS: Yes awake HENMT: COMMON NORMALS: oropharynx normal OTHER: Poor control of oral musculature. Neck/C-Spine: COMMON NORMALS: no JVD Resp: COMMON NORMALS: normal respiratory effort and clear to auscultation bilaterally AUSCULTATION: clear to auscultation bilaterally Cardio: COMMON NORMALS: no JVD, regular rhythm, S1 normal heart sound present, S2 normal heart sound present and No murmurs present (Cardio) RHYTHM: regular rhythm HEART SOUNDS: S1 normal heart sound present and S2 normal heart sound present GI: COMMON NORMALS: Normal to inspection, nondistended, normoactive bowel sounds present, Soft to palpation and non-tender PALPATION: Yes Soft to palpation OTHER: PEG in place Extremity: COMMON NORMALS: no joint enlargement and no pedal edema Neuro: COMMON NORMALS: negative for patient oriented x3 S ENSORIUM/ORIENTATION: Yes alert OTHER: Right-sided hemiparesis. Right-sided facial droop. Skin: COMMON NORMALS: no rashes or lesions noted GENERAL SKIN EXAM: no rashes or lesions noted Urinary Catheter Management: Hood: Cath Placed During This Visit: yes Reason for Continuing Indwelling Catheter: Accurate Measurement of Urinary Output in Critically Ill Patients Urinary Catheter Date of Insertion: 10/27/23 Urinary Catheter Time of Insertion: 08:08 Data 10/30/23 06:04 10/30/23 06:04 A&P Assessment and plan (1) Acute ischemic left MCA stroke: Status post PEG tube placement. Surgery documentation reviewed. Per surgery okay to use PEG tube today. Monitor for tolerance of tube feeds. Continue ND aspirin for now. Post thrombolytics. Reviewed CBC, chemistry. Reviewed chest x-ray, PICC line has been placed today. Recommended advancement. Continue PT, OT, ST, post discharge planning. Discussed with casework specialist. Echocardiogram done shows normal EF with grade 1 diastolic dysfunction with mild MR. Keep mean arterial pressure around 65. Patient not safe to have oral diet as per speech evaluation. Restart statin via PEG tube Elevate head of bed. Discussed with casework specialist. Pending arrangements for SNF. (2) Thrombolytic medication administered within last 5 days: Trace irregular high attenuation in the left frontal lobe similar on repeat CT, possible trace hemorrhage or occluded vessel left frontal lobe. Possible calcified arterial emboli. (3) Hypotension: Stop normal saline. Hypotension resolved. Reviewed CBC, leukocytosis resolved. Reviewed chemistry, renal function WNL. Reviewed procalcitonin, noted 0.06. Stop meropenem. DC PICC line. Hypotension most likely from dehydration and neurogenic. (4) Diabetes: Recent A1c more than 9. Blood sugars better controlled now. Continue to monitor. Insulin sliding scale at moderate dose protocol every 6 hourly. Glargine 50 units at bedtime. Patient takes glargine 50 units twice daily along with sliding scale. Qualifiers: Diabetes mellitus type: type 2 Diabetes mellitus half-way insulin use: with petroleum terminal plant operator use Diabetes mellitus complication status: with other specified complication Qualified Code(s): E11.69 - Type 2 diabetes mellitus with other specified complication; Z79.4 - jail (current) use of insulin (5) Hyperkalemia: Resolved. (6) Hyponatremia: Resolved. Most likely pseudohyponatremia in setting of hyperglycemia. Normal saline as above. Repeat BMP daily. (7) Acute kidney injury: Resolved. Monitor BMP daily. (8) Hypothyroidism (acquired): Resume levothyroxine. (9) Essential hypertension: Goal blood pressure is above. Hold off on antihypertensives. (10) Noncompliance: Plan Obstructive sleep apnea: Will confirm if patient uses CPAP. If does well continue nightly. Left arm superficial thrombophlebitis: Reviewed duplex ultrasound, noted superficial thrombophlebitis. Elevate LUE. Discussed with family. Shoulder x-ray. CODE STATUS: Discussed with sister at bedside. For now we will remain full code. Patient's daughter is DPOA is not at bedside. NPO. Protonix for PUD prophylaxis SCDs for DVT prophylaxis. Discharge plan: SNF. Discussed with systems requirements planner. Attestations 2 Medical Necessity Statement*: Continue admission for assessment management following MCA CVA, inability to tolerate oral diet, assessment of tolerance of tube feeding, arrangements for SNF. and High MDM includes amount and/or complexity of data reviewed/ordered [ previous or external records, resulted lab(s)/test(s) and other healthcare professional discussion] as documented Diagnoses Acute ischemic left MCA stroke I63.512 Thrombolytic medication administered within last 5 days Z78.9 Hypotension I95.9 Type 2 diabetes mellitus with other specified complication, with long-term current use of insulin E11.69; Z79.4 Diabetes mellitus type: type 2 Diabetes mellitus petroleum terminal plant operator insulin use: with petroleum terminal plant operator use Diabetes mellitus complication status: with other specified complication Hyperkalemia E87.5 Hyponatremia E87.1 Acute kidney injury N17.9 Hypothyroidism (acquired) E03.9 Essential hypertension I10 Noncompliance Z91.19
--- NOTE | 2023-10-30 13:50 | PC.OT ---
OT TREATMENT ATTEMPTED TWICE THIS P.M. PATIENT IS SLEEPING SOUNDLY BOTH ATTEMPTS. WILL ATTEMPT AGAIN AT A LATER TIME.
--- NOTE | 2023-10-30 14:27 | PM.PN ---
Subjective Subjective: History of Present Illness Christina Julien is a 83 year old female with a history of remote left frontal lobe infarction with encephalomalacia, chronic cortical atrophy, insulin requiring type 2 diabetes mellitus, hypothyroidism, hypertension, obstructive sleep apnea, venous stasis dermatitis, thyroid nodule, polyarthralgia, abdominal hernia and questionable abdominal aneurysm. The patient was reported to be in her usual state of health. But on 10/26/2023 the patient was reported to be found down at 9:45 AM on 10/26/2023. Patient's last known well (LKW) was 7:30 AM on 10/26/2023. According to the family, the patient checked her blood sugar this morning on 10/26/2023 and it was reported by the family needs to be 184 and the patient self-administered her subcutaneous insulin injection. The patient was brought to [facility] emergency room via EMS secondary to acute on onset of right-sided paralysis, left gaze preference and inability to speak. NIH score = 29 by ER physician and NIH score = 24 by neurology evaluation at the bedside and emergency department bed #11. following the stat noncontrast head CT was performed. Stat noncontrast head CT was obtained and revealed No evidence of intracranial hemorrhage or mass effect. Dense focal calcification in the LEFT mid MCA. This can be further evaluated with CTA. Moderate small vessel changes with moderate parenchymal volume loss worse in the frontal lobes. Chronic infarct with encephalomalacia in the LEFT frontal lobe unchanged from previous. The family was contacted via phone and 1 family member arrived in person to give consent for intravenous tenecteplase (TNKase). Intravenous tenecteplase was administered at 11:05 AM on 10/26/2023. The patient tolerated the tenecteplase bolus without issues. In view of the patient's clinical findings of the left MCA distribution stroke, she was sent back to the CT scanner for CT angiogram of the head and neck as well as CT of the chest since there was reports of a questionable aortic aneurysm, per patient's family history given in the ER today in room # 11. The results of the CT angiograms were not available for review at the time of this dictation. The patient was transferred to the intensive care unit Bed 11 per NIH stroke protocol and post tenecteplase administration. Today on 10/27/2023 the patient remained stable. The patient is an ICU bed 11. She was easily arousable to verbal and tactile stimuli. Patient trying to cooperate. She still has a dense nonfluent aphasia with severe dysarthria but slightly improved since 10/26/2023. Patient has some slight movement of the fingers of the right hand and right toes but still has significant deficit during motor testing of the right arm and right leg with near paralysis. Extensor plantar response still observed during neurological testing in the right lower extremity. The patient was reevaluated on 10/28/2023 the patient remains alert and cooperative. She still has near paralysis of the right arm and right leg. Patient still has dense nonfluent aphasia but attempts to speak. Repeat noncontrast head CT performed on 10/27/2023 approximately 24 hours after tenecteplase was administered revealed a Large ischemic infarct throughout the entire left MCA distribution producing effacement of the left cortical sulci and 2 mm midline shift to the right and stable left frontal lobe encephalomalacia with subarachnoid hemorrhage and punctate calcification. The patient had a repeat noncontrast head CT on 10/28/2023 to assess for any progression in the left hemispheric mass effect and reported subarachnoid hemorrhage in the remote stroke in the frontal region. This study was essentially unchanged. The patient was transferred to [facility] unit room 252 bed 1 on 10/28/2023. On examination on 10/30/2023, the patient clinically remains unchanged. She is still alert and follows commands using her left upper extremity and left lower extremity. Patient has near right-sided paralysis. The patient was also discovered to have superficial vein thrombosis in the left upper extremity. She was scheduled for PEG placement. Patient has been evaluated by speech, OT and PT. CT angiogram of the head and neck 10/26/2023 IMPRESSION: 1. Focal calcification in the LEFT mid M1 segment with moderate to severe stenosis. Distal vessel remains patent. However significant decreased vascularity to the second and third order branches MCA territory 2. Suspected developing subacute ischemia LEFT MCA territory. 3. Intracranial CTA otherwise patent. 4. Approximately 60 to 70% RIGHT proximal ICA stenosis. RIGHT ICA is patent to the skull base. 5. Prior LEFT carotid endarterectomy. No significant stenosis. CT angiogram of the head and neck was reviewed with Dr. Rodriguez, radiologist by Dr. Root. I spoke with Dr. Root who informed me that Dr. Rodriguez, radiologist could not determine distinctly if there was a thrombus in the left M1 segment of the left middle cerebral artery but due to the reported suspected developing subacute ischemia in the LEFT MCA on the CT angiogram of the head and neck, Dr. Root informing that the radiologist, Dr. Rodriguez stated that the patient would not be a candidate for thrombectomy secondary to potential for worsening the patient's condition secondary to risks of hemorrhagic changes if the procedure was attempted and therefore the patient was not referred to another facility to be evaluated for thrombectomy. The CT angiogram report also stated patient has history of a previous left carotid endarterectomy. Repeat noncontrast head CT 10/27/2023 approximate 24 hours post tenecteplase revealed: IMPRESSION: 1. Large ischemic infarct throughout the entire left MCA distribution producing effacement of the left cortical sulci and 2 mm midline shift to the right. 2. Stable left frontal lobe encephalomalacia with subarachnoid hemorrhage and punctate calcification. Repeat noncontrast head CT 10/28/2023: IMPRESSION: 1. Evolving subacute infarct in the left MCA territory. 2. Trace irregular high attenuation in the left frontal lobe similar to the finding on 10/27/2023. Possible trace hemorrhage or occluded vessel. 3. Calcifications in the proximal left middle cerebral artery and in the left frontal lobe adjacent to the aforementioned focus of irregular high attenuation. Possible calcified arterial emboli. 4. Cerebral volume loss with mildly increased mass effect related to the left MCA territory infarct. Stable 2 mm rightward subfalcine midline shift. Mildly progressive partial effacement of the left lateral ventricle. Drug allergies: Clindamycin which resulted in a rash Penicillins which resulted in a rash Sulfonamide antibiotics which resulted in tongue, lip and throat swelling Tetracycline which resulted in tongue lip and throat swelling Jardiance which resulted in abdominal pain Januvia which resulted in abdominal pain Home medications: Norvasc 5 mg p.o. daily Tylenol 1000 mg p.o. every 6 hours as needed pain Aspirin 81 mg p.o. daily Lipitor 40 mg p.o. q. evening Calcium with vitamin D3 600 mg / 12.5 mcg p.o. daily Zyrtec 10 mg p.o. daily as Pepcid 20 mg p.o. twice daily Lasix 20 mg p.o. twice daily Guaifenesin extended release 600 mg every 12 hours as needed Insulin 100 units subcutaneously Detemir insulin 100 units per 3 mL 50 units subcutaneously twice daily Ketoconazole 2% topical cream to be applied twice a day as needed Synthroid 88 mcg p.o. daily Lisinopril 40 mg p.o. daily Mupirocin 2% topical ointment twice a day Nitroglycerin 0.4 mg tablets sublingual every 5 minutes as needed for chest pain Nystatin 100,000 units/g topical powder applied topically 3 times a day as needed [place]-3 fatty acid 1000 mg p.o. daily Oxybutynin ER 15 mg p.o. daily Potassium chloride 20 mEq p.o. daily Triamcinolone 0.1% topical cream to be applied daily Past medical history: 60% to 70% stenosis of the proximal right internal carotid artery reported on CT angiogram of the head and neck 10/26/2023History of left carotid endarterectomyHypothyroidType 2 diabetes mellitus, insulin requiring Sleep apnea Obesity Old left frontal lobe infarction with encephalomalacia changes Venous stasis dermatitis Habits: None Review of Systems General: Reports: 10 or mor e systems reviewed and unremarkable except in HPI and below Neuro: Reports: weakness in extremities, la ck of coordination , difficulty walki ng, Slurred speech present and diffi culty communicatin g thoughts Vitals/I&O/Wt Last Vital Signs Temp 97.6 F 10/30/23 11:19 Pulse 76 10/30/23 11:19 Resp 16 10/30/23 11:19 BP 158/64 10/30/23 11:19 Pulse Ox 100 10/30/23 11:19 O2 Del Method Nasal Cannula 10/30/23 11:19 O2 Flow Rate 2 10/30/23 08:00 10/29/23 10/30/23 10/30/23 22:59 06:59 14:59 Intake Total 1247 / 2064.917 50 / 2114.917 50 / 50 Output Total 700 / 1300 Balance 1247 / 1464.917 -650 / 814.917 50 / 50 Weight last 48 hrs Weight 176 lb Weight 181 lb 8 oz Physical Exam Narrative: The patient is alert but nonverbal. She has severe dysarthria and unable to speak. Pupils 4 mm round reactive to light and accommodation. Extraocular movements revealed left gaze preference. There was right lower facial weakness. Motor testing revealed right upper and right lower extremity paralysis. Deep tendon reflexes revealed 1+ in the upper extremities and trace in the lower extremities with extensor plantar response on the right. There was no clonus. Sensory examination revealed neglect on the right side of her body. There was lack of coordination and secondary to paralysis of the right arm and right leg. Throat clear. Lungs clear. Heart regular rhythm and rate. Extremities revealed venous stasis dermatitis and edema in the lower extremities. Urinary Catheter Management: Hood: Cath Placed During This Visit: yes Reason for Continuing Indwelling Catheter: Accurate Measurement of Urinary Output in Critically Ill Patients Urinary Catheter Date of Insertion: 10/27/23 Urinary Catheter Time of Insertion: 08:08 Data 10/30/23 06:04 10/30/23 06:04 A&P Assessment and plan (1) Acute ischemic left MCA stroke: Impression: 1. Acute large MCA distribution stroke manifested as nonfluent aphasia, left gaze preference, and right-sided paralysis 1a. Focal calcification in the LEFT mid M1 segment with moderate to severe stenosis. Distal vessel remains patent. However significant decreased vascularity to the second and third order branches MCA territory and Suspected developing subacute ischemia LEFT MCA territory. The patient was reported not to be a candidate for thrombectomy secondary to subacute ischemic changes in the left MCA territory with potential for worsening of the patient's condition and hemorrhage 1b. Abnormal repeat noncontrast head CT performed on 10/27/2023 approximately 24 hours post tenecteplase administration revealed large ischemic infarct throughout the entire left MCA distribution producing effacement of the left cortical sulci and 2 mm midline shift to the right. Stable left frontal lobe encephalomalacia with subarachnoid hemorrhage and punctate calcification. 1c. Vascular and dural calcifications 2. Administration of tenecteplase (TNKase) on 10/26/2023 at 11:05 AM without acute complications 2a. Remote left frontal lobe infarction with encephalomalacia 3. History of left carotid endarterectomy 3a. 60 to 70% stenosis of the proximal right internal carotid reported on CT angiogram of the head and neck performed on 10/26/2023 4. Insulin requiring type 2 diabetes mellitus 5. Sleep apnea 6. Obesity 7. Venous stasis dermatitis 8. Abdominal hernia 9. History of questionable aortic aneurysm, per patient's family report 10. Hypothyroidism 11. Hypertension 12. Superficial left upper extremity venous thrombosis in the Left Cephalic vein: Occluded with abnormal flow and phasicity. Left Basilic vein: Occluded with abnormal flow and phasicity. Plan: 1. Follow NIH stroke protocol and post tenecteplase administration/intensive care unit treatment 2. Recommend patient be placed on CPAP or BiPAP since the patient was observed to have decreased O2 saturations in the 80s during sleep in the intensive care unit bed #11 and the patient has history of sleep apnea 3. Agree with obtaining CT angiogram of the chest to assess for aortic aneurysm 4. Patient scheduled for repeat noncontrast head CT to assess for worsening of left see left MCA distribution cerebral edema/mass effect and to evaluate any worsening of the reported subarachnoid hemorrhage in the remote stroke with encephalomalacia in the left frontal region. Note: Patient status post tenecteplase administration(tenecteplase given at 11:05 AM on 10/26/2023). Repeat Noncontrast head CT scheduled for 12 PM on 10/28/2023 5. Resume Lipitor 24 hours post tenecteplase administered 6. Recommend holding low-dose aspirin 81 mg p.o. every morning secondary to reports of left MCA distribution cerebral edema with mass effect and subarachnoid hemorrhage in the old left frontal lobe stroke with encephalomalacia reported on noncontrast head CT scan performed on 10/27/2023 approximately 24 hours post tenecteplase administration 7. Continue neurochecks and vitals per NIH stroke protocol and post thrombolytics (tenecteplase) administration 8. Recommend continuing occupational therapy, physical therapy and speech therapy for nonfluent aphasia, and right-sided paralysis 9. Keep head of bed elevated at 30 degrees as tolerated 10. Use normal saline for IV fluids and no hypotonic fluids (hypotonic fluids may potentially increase the cerebral edema reported on noncontrast head CT) 11. Agree with PEG placement for nutrition (this procedure is scheduled for 10/29/2023) 12. Recommend resuming aspirin using aspirin suppository 300 mg daily 24 hours after PEG placement (PEG placement scheduled for 10/29/2023 at 11:30 AM) Attestations Medical Necessity Statement*: The patient was evaluated by neurology for left MCA distribution Coding Level of Care Code 10978 Diagnoses Acute ischemic left MCA stroke I63.512
[2023-10-30 17:40] LABS: Glucose Point of Care 96 mg/dL (70-110)
[2023-10-30] MEDS: pantoprazole 40 mg SDV IVP (17:47)
[2023-10-30] MEDS: atorvastatin 40 mg Tablet 20 MG PO (20:37)
[2023-10-31] VITALS: BP 159/72; PULSE 79; RESP 19; TEMP 36.7; O2SAT 94
[2023-10-31 00:58] LABS: Glucose Point of Care 124 mg/dL (70-110)
[2023-10-31 04:00] VITALS: BP 150/73; PULSE 70; RESP 19; TEMP 36.6; O2SAT 99
[2023-10-31 06:30] LABS: Glucose Point of Care 153 mg/dL (70-110)
[2023-10-31 07:09] LABS: Blood Urea Nitrogen 15 mg/dL (8-23); Carbon Dioxide 25 mmol/L (22-29); Chloride 110 mmol/L (98-107); Glucose 138 mg/dL (65-115); Osmolality Calculated 309 mOsm/kg (285-295); Sodium 148 mmol/L (136-145)
[2023-10-31 07:13] LABS: Anion Gap 17.3 (5-19); Potassium 4.3 mmol/L (3.5-5.1)
[2023-10-31 07:59] VITALS: BP 145/66; PULSE 68; RESP 18; TEMP 36.4; O2SAT 92
[2023-10-31 08:15] LABS: Basophils % 0.3 %; Eosinophils # 0.1 10^3/uL (0.0-0.8); Eosinophils % 1.3 %; Hematocrit 32.2 % (36-47); Lymphocytes # 2.6 10^3/uL (0.8-4.8); Lymphocytes % 27.9 %; Mean Corpuscular HGB Conc 30.1 g/dL (30-55); Mean Corpuscular Hemoglobin 29.4 pg (27-33); Mean Corpuscular Volume 97.6 fl (85-98); Monocytes # 0.7 10^3/uL (0.2-0.9); Neutrophils # 5.98 10^3/uL (1.8-7.7); Neutrophils % 63.2 %; Nucleated Red Blood Cells % 0 %; Platelet Count 203 10^3/cmm (157-399); Red Cell Distribution Width 14.1 % (12.1-15.1); White Blood Count 9.46 10^3/uL (3.29-11.43)
[2023-10-31 09:04] VITALS: PULSE 70; O2SAT 94
[2023-10-31] MEDS: levothyroxine 88 mcg Tablet PEG-TUBE (09:35)
[2023-10-31] MEDS: aspirin 300 mg Supp PR (09:35)
[2023-10-31 09:52] LABS: SARS Covid-2 Antigen negative (Negative)
[2023-10-31 11:34] VITALS: BP 147/62; PULSE 69; RESP 20; TEMP 36.5; O2SAT 99
[2023-10-31 12:30] LABS: Glucose Point of Care 211 mg/dL (70-110)
[2023-10-31] MEDS: insulin lispro 100 unit/1 mL SUBCUT (12:30)
--- NOTE | 2023-10-31 13:39 | PM.DCS ---
Discharge Providers Date of Admission: 10/26/23 12:12 Date of Discharge: October 31, 2023 Attending Provider at Admission: Deonte Torre MD Attending Provider at Discharge: Sumanth Lemus Primary Care Provider: VERONICA Ram Diagnoses at Discharge Discharge Diagnosis (1) Acute ischemic left MCA stroke: Status: Acute Reason for Visit Reason for Visit: STROKE LIKE SYMPTOMS Hospital Course Hospital Course 89-year-old lady with history of DM2, HTN, HLD, smoking, hypothyroidism, GARRISON, CAD, diabetic foot, noncompliance and other medical problems was admitted after presenting with symptoms of stroke, with right-sided paralysis, left-sided gaze preference, aphasia, assessed by neurology, received treatment with TNK, subsequently continued with post TNK and acute stroke care and workup. Continued with IV fluids, transiently required pressor support, had been unable to resume oral intake due severe dysphagia. Without improvement, required PEG tube placement. Blood pressures improved, resuming on low-dose antihypertensive. Avoid hypotension. CT of the head with possible mild hemorrhagic conversion with trace irregular high attenuation area in the left frontal lobe, unchanged on reassessment. Possible hemorrhage or occluded vessel. Follow-up in case of change of symptoms. Follow-up with neurology once she is done with skilled rehabilitation, or in case of change in symptoms. Was assessed by critical care unit nurse, continue tube feeds as per recommendations. NPO. Continue speech therapy, PT, OT. Elevate head of bed 30 degrees. Continue positioning to prevent pressure ulcers. Hood catheter was removed at discharge. Continue to optimize hypertension, controlled diabetes. A1c is 9.4. Physical Exam Const: COMMON NORMALS: alert; negative for patient oriented x3 GENERAL APPEARANCE: cooperative (Squeezes left hand, wiggles toes on the left foot) ORIENTATION/CONSCIOUSNESS: Yes awake HENMT: COMMON NORMALS: oropharynx normal OTHER: Poor control of oral musculature. Neck/C-Spine: COMMON NORMALS: no JVD Resp: COMMON NORMALS: normal respiratory effort and clear to auscultation bilaterally AUSCULTATION: clear to auscultation bilaterally Cardio: COMMON NORMALS: no JVD, regular rhythm, S1 normal heart sound present, S2 normal heart sound present and No murmurs present (Cardio) RHYTHM: regular rhythm HEART SOUNDS: S1 normal heart sound present and S2 normal heart sound present GI: COMMON NORMALS: Normal to inspection, nondistended, normoactive bowel sounds present, Soft to palpation and non-tender PALPATION: Yes Soft to palpation OTHER: PEG in place Extremity: COMMON NORMALS: no joint enlargement and no pedal edema Neuro: COMMON NORMALS: negative for patient oriented x3 SENSORIUM/ORIENTATION: Yes alert OTHER: Right-sided hemiparesis. Right-sided facial droop. Skin: COMMON NORMALS: no rashes or lesions noted GENERAL SKIN EXAM: no rashes or lesions noted Urinary Catheter Management: Hood: Cath Placed During This Visit: yes Reason for Continuing Indwelling Catheter: Accurate Measurement of Urinary Output in Critically Ill Patients Urinary Catheter Date of Insertion: 10/27/23 Urinary Catheter Time of Insertion: 08:08 Discharge Data Studies Completed and Pending Completed Studies During Hospitalization Category Date Time Status CT head thrombolytic 44963 Stat Cat Scan 10/26/23 10:[address] head wo con* [id number] Routine Cat Scan 10/27/23 12:[address] head wo con* [id number] Routine Cat Scan 10/28/23 12:00 Completed CTA head neck [CT angio headneck* 16369/24796] Stat Cat Scan 10/26/23 11:11 Completed CXRP [XR chest 1V portable [id number]] Stat Exams 10/28/23 04:26 Completed XR chest 1V portable [id number] Routine Exams 10/29/23 01:31 Completed XR chest 1V portable [id number] Stat Exams 10/26/23 10:49 Completed XR shoulder RT 1V 16708 Routine Exams 10/27/23 10:56 [place] [id number] Routine Ultrasound 10/27/23 10:56 Completed CV. echo complete* [id number] Routine Ultrasound 10/27/23 06:00 Completed US venous duplex upper extremity LT [CV venous duplex Ultrasound 10/28/23 18:07 [place] [id number]] Routine Pending at discharge Category Date Time Status Basic Metabolic Panel AM LABS Lab 11/01/23 04:00 Ordered Complete Blood Count w/Auto AM LABS Lab 11/01/23 04:00 Ordered Radiology Impressions Shoulder X-Ray 10/27/23 10:56 IMPRESSION: No acute findings. Head CT 10/28/23 12:00 IMPRESSION: 1. Evolving subacute infarct in the left MCA territory. 2. Trace irregular high attenuation in the left frontal lobe similar to the finding on 10/27/2023. Possible trace hemorrhage or occluded vessel. 3. Calcifications in the proximal left middle cerebral artery and in the left frontal lobe adjacent to the aforementioned focus of irregular high attenuation. Possible calcified arterial emboli. 4. Cerebral volume loss with mildly increased mass effect related to the left MCA territory infarct. Stable 2 mm rightward subfalcine midline shift. Mildly progressive partial effacement of the left lateral ventricle. Venous Duplex 10/28/23 18:07 IMPRESSION: Venous thrombosis in the veins of the superficial left upper extremity veins as described above. Chest X-Ray 10/29/23 01:31 IMPRESSION: Right PICC with tip in the region of the proximal subclavian vein. Recommend advancement by at least 5 cm. Laboratory Results WBC 9.46 10^3/uL (3.29-11.43) 10/31/23 08:05 Corrected WBC Cancelled 10/31/23 05:53 RBC 3.30 10^6/uL (3.85-5.65) L 10/31/23 08:05 Hgb 9.70 g/dL (11.27-16.99) L 10/31/23 08:05 Hct 32.2 % (36-47) L 10/31/23 08:05 MCV 97.6 fl (85-98) 10/31/23 08:05 MCH 29.4 pg (27-33) 10/31/23 08:05 MCHC 30.1 g/dL (30-55) 10/31/23 08:05 RDW 14.1 % (12.1-15.1) 10/31/23 08:05 Plt Count 203 10^3/cmm (157-399) 10/31/23 08:05 MPV 10.0 fL (7.4-10.4) 10/31/23 08:05 Gran % Cancelled 10/31/23 05:53 Neut % (Auto) 63.2 % 10/31/23 08:05 Lymph % (Auto) 27.9 % 10/31/23 08:05 Rankin % (Auto) 7.0 % 10/31/23 08:05 Eos % (Auto) 1.3 % 10/31/23 08:05 Baso % (Auto) 0.3 % 10/31/23 08:05 Neut # (Auto) 5.98 10^3/uL (1.8-7.7) 10/31/23 08:05 Lymph # (Auto) 2.6 10^3/uL (0.8-4.8) 10/31/23 08:05 Rankin # (Auto) 0.7 10^3/uL (0.2-0.9) 10/31/23 08:05 Eos # (Auto) 0.1 10^3/uL (0.0-0.8) 10/31/23 08:05 Baso # (Auto) 0.0 10^3/uL (0.0-0.1) 10/31/23 08:05 Absolute Gran (auto) Cancelled 10/31/23 05:53 Nucleated RBC % (auto) 0 % 10/31/23 08:05 Nucleated RBCs # 0.0 /100WBC 10/31/23 08:05 PT 14.50 SECONDS (12.1-14.9) 10/26/23 11:00 INR 1.09 (0.8-1.2) 10/26/23 11:00 APTT 22.8 SECONDS (23.9-36.7) L 10/26/23 11:00 Specimen Type Arterial 10/28/23 15:50 Sample Site Radial, right 10/28/23 15:50 ABG pH 7.45 (7.35-7.45) 10/28/23 15:50 ABG pCO2 38.3 mmHg (35-45) 10/28/23 15:50 ABG pO2 57.0 mmHg (80.0-100.0) L 10/28/23 15:50 ABG PO2/FiO2 Ratio 0 10/28/23 15:50 ABG HCO3 26.6 mmol/L (22-26) H 10/28/23 15:50 ABG O2 Saturation 91.3 10/28/23 15:50 ABG Base Excess 2.6 mmol/L (-2.0-2.0) H 10/28/23 15:50 John Test Pos 10/28/23 15:50 A-a O2 Gradient 5.8 mmHg (5-10) 10/28/23 15:50 Hematocrit 32.5 % (37-47) L 10/28/23 15:50 Hgb O2 Saturation 89.7 % (95-100) L 10/28/23 15:50 Carboxyhemoglobin 1.3 %THgb (0.4-20.1) 10/28/23 15:50 Methemoglobin 0.5 % (0.4-1.5) 10/28/23 15:50 Total Hemoglobin 10.6 g/dL (12-16) L 10/28/23 15:50 Sodium 141.0 mmol/L (131-143) 10/28/23 15:50 Potassium 3.7 mmol/L (3.5-5.0) 10/28/23 15:50 Glucose 179.0 mg/dL (70-115) H 10/28/23 15:50 Ionized Calcium 1.2 mmol/L (1.1-1.4) 10/28/23 15:50 O2 Delivery Device Room air 10/28/23 15:50 FiO2 21.0 % 10/28/23 15:50 Cancer Registry Manager ID glc 10/28/23 15:50 Sodium 148 mmol/L (136-145) H 10/31/23 05:53 Potassium 4.3 mmol/L (3.5-5.1) 10/31/23 05:53 Chloride 110 mmol/L (98-107) H 10/31/23 05:53 Carbon Dioxide 25 mmol/L (22-29) 10/31/23 05:53 Anion Gap 17.3 (5-19) 10/31/23 05:53 BUN 15 mg/dL (8-23) 10/31/23 05:53 Creatinine 0.5 mg/dL (0.5-0.9) 10/31/23 05:53 GFR Calculation Not Reportable 10/31/23 05:53 Glucose 138 mg/dL (65-115) H 10/31/23 05:53 POC Glucose 211 mg/dL (70-110) H 10/31/23 12:27 Calculated Osmolality 309 mOsm/kg (285-295) H 10/31/23 05:53 Calcium 9.0 mg/dL (8.5-10.5) 10/31/23 05:53 Phosphorus 2.1 mg/dL (2.5-4.5) L 10/27/23 04:12 Magnesium 1.7 mg/dL (1.7-2.3) 10/27/23 04:12 Iron 92 ug/dL (37-145) 10/26/23 12:08 TIBC 283 mcg/dl 10/26/23 12:08 % Saturation 32.5 % (20-50) 10/26/23 12:08 Unsat Iron Binding 191 ug/dL (112-347) 10/26/23 12:08 Total Bilirubin 0.9 mg/dL (0.15-1.2) 10/29/23 05:32 AST 24 U/L (0-32) 10/29/23 05:32 ALT 14 U/L (0-33) 10/29/23 05:32 Alkaline Phosphatase 68 U/L (35-105) 10/29/23 05:32 Total Protein 6.0 g/dL (6.6-8.7) L 10/29/23 05:32 Albumin 3.2 g/dL (3.5-5.2) L 10/29/23 05:32 Globulin 2.8 g/dL (1.3-4.6) 10/29/23 05:32 Vitamin B12 595 pg/mL (232-1245) 10/26/23 12:08 Folate > 20.0 ng/mL (4.8-37.3) 10/27/23 04:12 Procalcitonin 0.06 ng/mL (0-0.5) 10/30/23 06:04 Urine Color Yellow (Yellow) 10/27/23 08:06 Urine Appearance Clear (CLEAR) 10/27/23 08:06 Urine pH 5 (5-7) 10/27/23 08:06 Ur Specific [place] 1.015 (1.005-1.030) 10/27/23 08:06 Urine Protein Neg (Negative) 10/27/23 08:06 Urine Glucose (UA) 4+ (Normal) H 10/27/23 08:06 Urine Ketones Negative (Negative) 10/27/23 08:06 Urine Blood Neg (Negative) 10/27/23 08:06 Urine Nitrate Negative (Negative) 10/27/23 08:06 Urine Bilirubin Neg (Negative) 10/27/23 08:06 Urine Urobilinogen Norm mg/dL (Negative) 10/27/23 08:06 Ur Leukocyte Esterase Negative (Negative) 10/27/23 08:06 Urine Opiates Screen Negative ng/mL (Negative) 10/27/23 08:06 Ur Barbiturates Screen Negative ng/mL (Negative) 10/27/23 08:06 Ur Phencyclidine Scrn Negative ng/mL (Negative) 10/27/23 08:06 Ur Amphetamines Screen Negative ng/mL (Negative) 10/27/23 08:06 U Benzodiazepines Scrn Negative ng/mL (Negative) 10/27/23 08:06 Urine Cocaine Screen Negative ng/mL (Negative) 10/27/23 08:06 U Marijuana (THC) Screen Negative ng/mL (Negative) 10/27/23 08:06 SARS-CoV-2 Ag (Rapid) negative (Negative) 10/31/23 09:00 Vitals Last Vital Signs Temp 97.7 F 10/31/23 11:34 Pulse 69 10/31/23 11:34 Resp 20 H 10/31/23 11:34 BP 147/62 10/31/23 11:34 Pulse Ox 99 10/31/23 11:34 O2 Del Method Nasal Cannula 10/31/23 11:34 O2 Flow Rate 1 10/31/23 09:04 Discharge Plan Discharge Patient Disposition: Xfer SNF Condition: Stable Prescriptions: New lisinopril 2.5 mg tablet 2.5 mg PO DAILY Qty: 90 0RF Continued ([facility] [place]) Diabetic shoes with 3 inserts See Rx Instructions .ROUTE .MEDSUPPLY Qty: 1 0RF Rx Instructions: As directed by GIGI&O ([facility] [place]) Diabetic shoes See Rx Instructions .Route .MEDSUPPLY Qty: 1 0RF Rx Instructions: As directed ascorbic acid (vitamin C) 1,000 mg tablet 500 mg PO DAILY 30 Days Qty: 30 2RF mupirocin 2 % ointment 1 applic topical BID Qty: 22 2RF (DME) adult protective underwear See Rx Instructions .Route .MEDSUPPLY Qty: 1 0RF Rx Instructions: As directed ([facility] [place]) adult protective large underwear See Rx Instructions .Route .MEDSUPPLY Qty: 1 0RF Rx Instructions: As directed ([facility] [place]) diabetic shoes with 3 inserts See Rx Instructions .Route .MEDSUPPLY Qty: 1 0RF Rx Instructions: As directed by home nitroglycerin 0.4 mg tablet, sublingual 0.4 mg sublingual Q5M PRN (Reason: chest pain) Qty: 25 2RF Rx Instructions: do not exceed 3 doses per episode (DME) pen needle, diabetic [Comfort EZ Pen [place]] 31 gauge x 3/16 needle See Rx Instructions .Route Qty: 200 5RF Rx Instructions: As directed potassium chloride 20 mEq tablet extended release 20 meq PO DAILY Qty: 30 2RF triamcinolone acetonide 0.1 % cream 1 applic TOPICAL DAILY 30 Days Qty: 80 2RF oxybutynin chloride 15 mg tablet extended release 24hr 15 mg PO DAILY 30 Days Qty: 30 2RF omega-3 fatty acids 1,000 mg capsule 1,000 mg PO DAILY 30 Days Qty: 30 2RF nystatin 100,000 unit/gram ointment 1 applic topical BID PRN (Reason: rash) Qty: 30 2RF Rx Instructions: large area, skin folds nystatin 100,000 unit/gram powder 1 applic topical TID PRN (Reason: rash) Qty: 60 2RF levothyroxine 88 mcg tablet 88 mcg PO DAILY Qty: 30 2RF (DME) lancets 31 gauge misc See Rx Instructions .Route Qty: 200 11RF Rx Instructions: 6 times daily ketoconazole 2 % cream 1 applic topical BID PRN (Reason: rash) Qty: 15 0RF Rx Instructions: large area skin folds insulin detemir U-100 100 unit/mL (3 mL) insulin pen 50 unit SUBCUT BID 30 Days Qty: 30 2RF insulin aspart U-100 [Novolog PenFill U-100 Insulin] 100 unit/mL cartridge See Rx Instructions SUBCUT TID 30 Days Qty: 3 2RF Rx Instructions: PER sliding scale 12-45 units, please use previous instructions Mucinex 600 mg tablet extended release 12hr 600 mg PO Q12H PRN (Reason: congestion) 30 Days Qty: 60 2RF famotidine 20 mg tablet 20 mg PO BID 30 Days Qty: 60 2RF calcium carbonate-vitamin D3 [Calcium 600 with Vitamin D3] 600 mg-12.5 mcg (500 unit) capsule 1 cap PO DAILY 30 Days Qty: 30 2RF (DME) Blood Glucose Test Strip See Rx Instructions .Route Qty: 200 11RF Rx Instructions: six times daily, CONTOUR NEXT atorvastatin 40 mg tablet 40 mg PO DAILY 30 Days Qty: 30 2RF amlodipine 5 mg tablet 5 mg PO DAILY Qty: 90 2RF Changed Zyrtec 10 mg tablet 10 mg PO DAILY PRN (Reason: Itching) 30 Days Qty: 30 2RF aspirin 81 mg tablet,delayed release (DR/EC) 81 mg feeding tube DAILY Qty: 1 0RF furosemide 20 mg tablet 20 mg PO BID PRN (Reason: Edema) 30 Days Qty: 60 2RF acetaminophen 500 mg capsule 1,000 mg feeding tube Q6H PRN (Reason: Pain) Qty: 1 0RF Discontinued lisinopril 40 mg tablet 40 mg PO DAILY Qty: 90 3RF Discharge Orders: Discharge Order (Routine); Ordered 10/31/23 Ordered By: Sumanth Lemus Referrals: Marcelina Enrique FNP-C [Primary Care Provider] - 4-7 days Discharge Diet: As Directed Discharge Activity: As per PT/OT instructions Patient Instructions: Lisinopril (By mouth), GI Discharge Instructions, Opioid Safety, Stroke Stoplight Activity Restrictions/Additional Instructions: Continue NPO. Tube feeding with Glucerna 1.2 at 1200 mL/day, bolus 355 mL at 8 AM, 200 300 475 mL at the 55 mL at 1800. Water flushes 150 mL 3 times daily. Elevate head of bed 30 degrees. Continue speech therapy follow-up. Continue PT, OT. Please call Dr. Perez's office after she is coming out of the [facility] at the [facility] for follow-up or if symptoms change. Similarly in case of change in symptoms follow-up CT head to reassess stroke and area of irregular high attenuation in the left frontal lobe. Monitor blood pressures 3 times daily, continue to optimize control, target 130/80, avoid hypotension. Continue to optimize control of diabetes. A1c of 9, please follow-up. Discharge Attestations Time Spent in Discharge Care*: greater than 30 min Quality Metrics Clinical Quality Measures [ Cerebrovascular Accident { Contraindication to Antithrombotic: None; antithrombotic prescribed; Contraindication to Anticoagulation: Overlap treatment not indicated; Contraindication to Statin: None; Statin prescribed;}] Coding Level of Care Code 86910 Total time (in minutes) for Discharge: 40 Diagnoses Acute ischemic left MCA stroke I63.512
[2023-10-31 14:42] VITALS: BP 147/62; PULSE 69; RESP 20; TEMP 36.5; O2SAT 99
--- NOTE | 2023-10-31 14:42 | PC.NURSE ---
REPORT CALLED TO [facility]. PATIENT JUST LEFT VIA EMS.
== END 2023-10-31 14:43 | disposition skilled nursing facility (03) | DRG 62 ==
LOC: ER 12:17 → ICU 13:01 → MEDSURG 10-28 14:41
PROVIDERS: Surgery; Admitting Provider Student in an Organized Health Care Education/Training Program; Emergency Provider Family Medicine; PCP Nurse Practitioner Family; Visit Provider Internal Medicine
PROC: 0DJ08ZZ Inspection of Upper Intestinal Tract, Via Natural or Artificial Opening Endoscopic (ICD-10-PCS; CPT 43235; principal; 2023-10-29 12:00)
PROC: 0DH63UZ Insertion of Feeding Device into Stomach, Percutaneous Approach (ICD-10-PCS; CPT 43246; 2023-10-29 12:00)
DX: I63.512 Cerebral infarction due to unspecified occlusion or stenosis of left middle cerebral artery (principal); E87.1 Hypo-osmolality and hyponatremia; G81.91 Hemiplegia, unspecified affecting right dominant side; N17.9 Acute kidney failure, unspecified; R47.01 Aphasia; R13.10 Dysphagia, unspecified; R29.724 NIHSS score 24; E11.65 Type 2 diabetes mellitus with hyperglycemia; I10 Essential (primary) hypertension; E78.5 Hyperlipidemia, unspecified; G47.30 Sleep apnea, unspecified; I25.10 Atherosclerotic heart disease of native coronary artery without angina pectoris; G93.89 Other specified disorders of brain; M79.89 Other specified soft tissue disorders; E86.0 Dehydration; I95.9 Hypotension, unspecified; E87.5 Hyperkalemia; K46.9 Unspecified abdominal hernia without obstruction or gangrene; E89.0 Postprocedural hypothyroidism; K21.9 Gastro-esophageal reflux disease without esophagitis; E66.9 Obesity, unspecified; I87.2 Venous insufficiency (chronic) (peripheral); Z72.0 Tobacco use; Z98.890 Other specified postprocedural states; Z11.52 Encounter for screening for COVID-19; Z79.4 Long term (current) use of insulin; Z86.73 Personal history of transient ischemic attack (TIA), and cerebral infarction without residual deficits; Z91.199 Patient's noncompliance with other medical treatment and regimen due to unspecified reason; Z68.34 Body mass index [BMI] 34.0-34.9, adult; Z79.82 Long term (current) use of aspirin; Z88.1 Allergy status to other antibiotic agents; Z88.0 Allergy status to penicillin; Z88.2 Allergy status to sulfonamides; Z88.8 Allergy status to other drugs, medicaments and biological substances
CPT/HCPCS: 36415; 36416; 36573; 36600; 43246; 51702; 70450; 70496; 70498; 71045; 73020; 80048; 80051; 80053; 80306; 81003; 82330; 82607; 82746; 82805; 82962; 83540; 83550; 83735; 84100; 84145; 85025; 85610; 85730; 87426; 92507; 92523; 92526; 92610; 93005; 93306; 93971; 94664; 96372; 96374; 96376; 97110; 97163; 97165; 97530; 99291; 99292; C1751; C9113; J1815; J2185; J2270; J2704; J3101; J7030; Q9967

== ENCOUNTER 2023-11-02 10:14 | Emergency (ER) | payer MEDICARE, MEDICAID, SELFPAY ==
[2023-11-02 10:22] VITALS: BP 130/64; PULSE 98; RESP 20; TEMP 36.6; O2SAT 93
--- NOTE | 2023-11-02 10:25 | CT_ITS ---
WS: [id number] CT HEAD NONCONTRAST HISTORY: AMS TECHNIQUE: Contiguous axial imaging performed through the brain in 2.5 mm imaging. Bone and soft tiss ue windows. Sagittal and coronal reformats reviewed. All CT scans at [facility] use at least one of these dose optimization techniques: automated exposure control; mA and/or kV adjustment per pa tient size (includes targeted exams where dose is matched to clinical indication); or iterative recon struction. DLP: 1020.68 mGy.cm COMPARISON: 10/26/2023, 10/27/2023 and 10/28/2023 Patient has a known subacute large LEFT MCA territory infarct. Large infarct appeared to be acute on 10/26/2023 with overall appropriate evolution since that examination. There is loss of the navarrete-white matter differentiation and diffuse low-attenuation now present which is unchanged since 10/28/2023. T here is slightly less mass effect upon the LEFT lateral ventricle. No acute hemorrhage. Moderate volu me loss in the RIGHT cerebrum but no large territory infarct. There is no hemorrhage. No midline shif t. Ventricles: Normal size with no hydrocephalus. No inferior displacement of the cerebellar tonsils. Reidentified is a dense calcification in the LEFT MCA artery territory that was previously described. Paranasal sinuses: Mild mucoperiosteal thickening in the ethmoid air cells. Mastoid air cells: Well pneumatized. Calvarium and scalp: Skull is intact with no soft tissue edema or swelling. IMPRESSION: 1. Patient has a large subacute LEFT MCA territory infarct. Similar to the most recent examination of 10/28/2023. 2. No acute blood products and no progression of mass effect or midline shift. 3. Mild volume loss RIGHT cerebrum.
--- NOTE | 2023-11-02 10:27 | ED_ITS ---
HPI - General Adult 2 General: Chief complaint: Weakness Stated complaint: decreased ams Time Seen by Provider: 11/02/23 10:21 Source: family Mode of arrival: EMS Limitations: altered mental status History of Present Illness: 83-year-old female presents [facility]cy [facility] from the [facility]. She was discharged from this facility 2 days ago after an acute history of ischemic stroke in the distribution of the left MCA with right-sided weakness she returns with altered mental status and worsening right-sided weakness. She is nonresponsive this time has agonal like breathing. She had a PEG tube placed when she was here she has a distended abdomen. Family member at the bedside and daughter states she wishes her to be in no COVID. Family stated the PEG tube has not been working family is also noticed distention in the abdomen Onset (ago): hour(s) Relieving factors: none Exacerbating factors: none Review of Systems 2 General: Reports: ROS unobtainable due to medical condition and ROS unobtainable due to mental status PFSH ED 2 PFSH: Medical History Cellulitis Heart murmur, systolic Diabetic foot Atherosclerosis Vasovagal episode Chemical induced allergic contact dermatitis Chronic low back pain Osteoarthritis (arthritis due to wear and tear of joints) Polyarthralgia Thyroid nodule Leg swelling Venous stasis dermatitis Vaginal candidiasis Vitamin D deficiency Medication refill Lower extremity edema Environmental and seasonal allergies Chronic GERD Diabetes Noncompliance Asymptomatic bilateral carotid artery stenosis Dyslipidemia Hypothyroidism (acquired) Essential hypertension Adult onset hypothyroidism Enrolled in chronic care management Surgical History H/O thyroidectomy History of cholecystectomy Family History Father CAD (coronary artery disease), Onset Age: 56 [place] Mother Diabetes Stroke Family/Other Cancer Brother Lung disease Other Hypertension Denies family history of Clotting disorder Dementia Chronic kidney disease (CKD) Suicide Anesthesia complication Bleeding disorder Social History Smoking and tobacco/nicotine status: never used tobacco/nicotine Second hand smoke exposure: No Alcohol intake: never Substance/Drug Use: never Adopted: No Caregiver/support person: No Lives independently: Yes Household members: children Housing: House Marital status: / Number of children: 4 service: No Current occupational status: retired Do you think of yourself as: Straight/Heterosexual Current gender identity: Female Physical Exam 2 HENMT: COMMON NORMALS: normocephalic and atraumatic HEAD & SCALP: n ormocephalic and atraumatic Resp: COMMON NORMALS: normal respiratory effort, No retractions, No use of accessory muscles and clear to auscultation bilaterally AUSCULTATION: clear to auscultation bilaterally Cardio: COMMON NORMALS: regular rate, regular rhythm and No murmurs present (Cardio) RATE: regular rate RHYTHM: regular rhythm GI: COMMON NORMALS: Soft to palpation and No hepatosplenomegaly present A USCULTATION: Yes normoactive bowel sounds PALPATION: Yes Soft to palpation, No Tenderness to palpation present (GI), No Guarding due to palpation present (GI) and Yes No hepatosplenomegaly present Extremity: COMMON NORMALS: normal to inspection, capillary refill normal, no clubbing, cyanosis or edema, no calf tenderness and no pedal edema Skin: COMMON NORMALS: no rashes or lesions noted GENERAL SKIN EXAM: no rashes or lesions noted Course 2 Vital Signs: Vital signs: Vital Signs Temperature 97.8 F 11/02/23 10:22 Pulse Rate 98 11/02/23 10:22 Respiratory Rate 20 H 11/02/23 10:22 Blood Pressure 130/64 11/02/23 10:22 Pulse Oximetry 93 11/02/23 10:22 Oxygen Delivery Me thod Nasal Cannula 11/02/23 10:22 Oxygen Flow Rate 3 11/02/23 10:22 [facility] - General Adult Medical Decision Making Patient is very complicated history and is acutely ill at this time given her recent extensive stroke. On exam she appears to have a bowel obstruction. She would not be a candidate for any kind of surgical intervention. Long discussion with family at the bedside. Ultimately family decided to make the patient a Do Not Recussitate and wishes to [facility] to the [facility] care I did call and discussed with her attending Dr. Baron he will provide end-of-life care. We stopped all her medications and wrote prescriptions for comfort care. Medical Records I reviewed the patient's medical records. Lab Data 11/02/23 10:00 11/02/23 10:00 Laboratory Results WBC 13.43 10^3/uL (3.29-11.43) H 11/02/23 10:00 RBC 3.63 10^6/uL (3.85-5.65) L 11/02/23 10:00 Hgb 10.40 g/dL (11.27-16.99) L 11/02/23 10:00 Hct 34.4 % (36-47) L 11/02/23 10:00 MCV 94.8 fl (85-98) 11/02/23 10:00 MCH 28.7 pg (27-33) 11/02/23 10:00 MCHC 30.2 g/dL (30-55) 11/02/23 10:00 RDW 14.6 % (12.1-15.1) 11/02/23 10:00 Plt Count 333 10^3/cmm (157-399) 11/02/23 10:00 MPV 10.6 fL (7.4-10.4) H 11/02/23 10:00 Neut % (Auto) 77.2 % 11/02/23 10:00 Lymph % (Auto) 16.3 % 11/02/23 10:00 [place] % (Auto) 5.9 % 11/02/23 10:00 Eos % (Auto) 0.0 % 11/02/23 10:00 Baso % (Auto) 0.2 % 11/02/23 10:00 Neut # (Auto) 10.37 10^3/uL (1.8-7.7) H 11/02/23 10:00 Lymph # (Auto) 2.2 10^3/uL (0.8-4.8) 11/02/23 10:00 [place] # (Auto) 0.8 10^3/uL (0.2-0.9) 11/02/23 10:00 Eos # (Auto) 0.0 10^3/uL (0.0-0.8) 11/02/23 10:00 Baso # (Auto) 0.0 10^3/uL (0.0-0.1) 11/02/23 10:00 Nucleated RBC % (auto) 0 % 11/02/23 10:00 Nucleated RBCs # 0.0 /100WBC 11/02/23 10:00 Specimen Type Arterial 11/02/23 10:33 Sample Site Radial, left 11/02/23 10:33 ABG pH 7.47 (7.35-7.45) H 11/02/23 10:33 ABG pCO2 47.4 mmHg (35-45) H 11/02/23 10:33 ABG pO2 59.7 mmHg (80.0-100.0) L 11/02/23 10:33 ABG HCO3 34.2 mmol/L (22-26) H 11/02/23 10:33 ABG O2 Saturation 93.1 11/02/23 10:33 ABG Base Excess 9.3 mmol/L (-2.0-2.0) H 11/02/23 10:33 John Test Pos 11/02/23 10:33 A-a O2 Gradient 4.0 mmHg (5-10) L 11/02/23 10:33 Hematocrit 32.3 % (37-47) L 11/02/23 10:33 Hgb O2 Saturation 90.6 % (95-100) L 11/02/23 10:33 Carboxyhemoglobin 2.1 %THgb (0.4-20.1) 11/02/23 10:33 Methemoglobin 0.6 % (0.4-1.5) 11/02/23 10:33 Total Hemoglobin 10.5 g/dL (12-16) L 11/02/23 10:33 Sodium 152.0 mmol/L (131-143) H 11/02/23 10:33 Potassium 4.1 mmol/L (3.5-5.0) 11/02/23 10:33 Glucose 325.0 mg/dL (70-115) H 11/02/23 10:33 Ionized Calcium 1.3 mmol/L (1.1-1.4) 11/02/23 10:33 O2 Delivery Device Nc 11/02/23 10:33 O2 Liters/Min 4.0 % 11/02/23 10:33 Medical Doctor Md/Medical Director ID [place] 11/02/23 10:33 Sodium Cancelled 11/02/23 10:00 Potassium Cancelled 11/02/23 10:00 Chloride Cancelled 11/02/23 10:00 Carbon Dioxide Cancelled 11/02/23 10:00 Anion Gap Cancelled 11/02/23 10:00 BUN Cancelled 11/02/23 10:00 Creatinine Cancelled 11/02/23 10:00 GFR Calculation Cancelled 11/02/23 10:00 Glucose Cancelled 11/02/23 10:00 Calculated Osmolality Cancelled 11/02/23 10:00 Lactic Acid 2.1 mmol/L (0.5-2.2) 11/02/23 11:00 Calcium Cancelled 11/02/23 10:00 Total Bilirubin Cancelled 11/02/23 10:00 AST Cancelled 11/02/23 10:00 ALT Cancelled 11/02/23 10:00 Alkaline Phosphatase Cancelled 11/02/23 10:00 Creatine Kinase Cancelled 11/02/23 10:00 Troponin T Baseline 47 ng/L (0-10) H 11/02/23 10:00 Total Protein Cancelled 11/02/23 10:00 Albumin Cancelled 11/02/23 10:00 Globulin Cancelled 11/02/23 10:00 Serum Ketones Cancelled 11/02/23 10:00 All radiology interpretation(s) finalized by discharge Discharge Plan Discharge Patient Disposition: Home Clinical Impression: CVA (cerebral vascular accident), Bowel obstruction Condition: Stable Prescriptions: New morphine concentrate 100 mg/5 mL (20 mg/mL) Solution 20 mg sublingual DIRECTED MDD N/A PRN (Reason: Pain/SOB) 14 Days Qty: 30 0RF Rx Instructions: 0.25ml-1ml q1H PRN may increase to 0.5ml-1ml Q1H PRN Dulcolax (bisacodyl) 10 mg Suppository 10 mg MA DAILY PRN (Reason: Constipation) Qty: 5 0RF Rx Instructions: 1 suppository per rectum every day PRN for constipation. atropine 1 % Drops 4 drp sublingual Q4H PRN (Reason: Secretions) Qty: 5 0RF Rx Instructions: 4 drops SL q 4 hours PRN for terminal congestion/excessive secretions. ondansetron 4 mg Tablet,Disintegrating 4 mg translingual Q4H PRN (Reason: Nausea) Qty: 5 0RF Rx Instructions: Dissolve 1 tablet under tongue every 4 hours PRN for nausea lorazepam 2 mg/mL Concentrate 2 mg sublingual Q4H PRN (Reason: Anxiety/Seizure) Qty: 30 0RF Rx Instructions: 0.25ml-1ml q4H PRN Anxiety/Seizure Start 0.25ml may increase to 0.5ml-1ml q4H Discontinued mupirocin 2 % ointment 1 applic topical BID Qty: 22 2RF nitroglycerin 0.4 mg tablet, sublingual 0.4 mg sublingual Q5M PRN (Reason: chest pain) Qty: 25 2RF Rx Instructions: do not exceed 3 doses per episode potassium chloride 20 mEq tablet extended release 20 meq PO DAILY Qty: 30 2RF triamcinolone acetonide 0.1 % cream 1 applic TOPICAL DAILY 30 Days Qty: 80 2RF nystatin 100,000 unit/gram ointment 1 applic topical BID PRN (Reason: rash) Qty: 30 2RF nystatin 100,000 unit/gram powder 1 applic topical TID PRN (Reason: rash) Qty: 60 2RF ketoconazole 2 % cream 1 applic topical BID PRN (Reason: rash) Qty: 15 0RF insulin detemir U-100 100 unit/mL (3 mL) insulin pen 50 unit SUBCUT BID 30 Days Qty: 30 2RF calcium carbonate-vitamin D3 [Calcium 600 with Vitamin D3] 600 mg-12.5 mcg (500 unit) capsule 1 cap PO DAILY 30 Days Qty: 30 2RF aspirin 81 mg tablet,delayed release (DR/EC) 81 mg feeding tube DAILY Qty: 1 0RF magnesium hydroxide [Milk of Magnesia] 400 mg/5 mL Suspension 40,030 ml PO DAILY PRN (Reason: Constipation) bisacodyl 10 mg Suppository 10 mg MA DAILY PRN (Reason: Constipation) Fleet Enema 19-7 gram/118 mL Enema 118 ml MA DAILY PRN (Reason: Constipation) insulin aspart U-100 100 unit/mL (3 mL) insulin pen See Rx Instructions .ROUTE .COMPLEX Rx Instructions: INJECT 3 TIMES DAILY WITH MEAL PER SLIDING SCALE; BS 150-200=3 UNITS, 201- 250=5 UNITS, 251-300=7 UNITS, 301-350=9 UNITS, 351-400=11 UNITS. atorvastatin 40 mg tablet 40 mg feeding tube DAILY ascorbic acid (vitamin C) 1,000 mg tablet 500 mg feeding tube DAILY oxybutynin chloride 15 mg tablet extended release 24hr 15 mg PO DAILY omega-3 fatty acids 1,000 mg capsule 1,000 mg feeding tube DAILY cetirizine [Zyrtec] 10 mg tablet 10 mg feeding tube DAILY PRN (Reason: Itching) amlodipine 5 mg tablet 5 mg feeding tube DAILY levothyroxine 88 mcg tablet 88 mcg feeding tube DAILY famotidine 20 mg tablet 20 mg feeding tube BID furosemide 20 mg tablet 20 mg feeding tube BID PRN (Reason: Edema) lisinopril 2.5 mg tablet 2.5 mg feeding tube DAILY guaifenesin [Mucinex] 600 mg tablet extended release 12hr 600 mg PO Q12H PRN (Reason: congestion) acetaminophen 500 mg Tablet 1,000 mg feeding tube Q6H PRN (Reason: Pain) No Action (DME) Diabetic shoes with 3 inserts See Rx Instructions .ROUTE .MEDSUPPLY Qty: 1 0RF Rx Instructions: As directed by [employer] (DME) Diabetic shoes See Rx Instructions .Route .MEDSUPPLY Qty: 1 0RF Rx Instructions: As directed (DME) adult protective underwear See Rx Instructions .Route .MEDSUPPLY Qty: 1 0RF Rx Instructions: As directed (DME) adult protective large underwear See Rx Instructions .Route .MEDSUPPLY Qty: 1 0RF Rx Instructions: As directed (DME) diabetic shoes with 3 inserts See Rx Instructions .Route .MEDSUPPLY Qty: 1 0RF Rx Instructions: As directed by home (DME) pen needle, diabetic [Comfort EZ Pen [place]] 31 gauge x 3/16 needle See Rx Instructions .Route Qty: 200 5RF Rx Instructions: As directed (DME) lancets 31 gauge misc See Rx Instructions .Route Qty: 200 11RF Rx Instructions: 6 times daily (DME) Blood Glucose Test Strip See Rx Instructions .Route Qty: 200 11RF Rx Instructions: six times daily, CONTOUR NEXT Discharge Orders: Discharge ED (Routine); Ordered 11/02/23 Ordered By: Redd Root Referrals: Marcelina Enrique FNP-C [Primary Care Provider] - Patient Instructions: Opioid Safety, Pain Management Activity Restrictions/Additional Instructions: [facility]carged to [facility] on comfort cares. Dr. Baron will manage cares at the [facility]. Coding Level of Care Code ED An Employee Sponsor Or Advocate And for Cheryle Russell
--- NOTE | 2023-11-02 10:35 | ECG_ITS ---
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 Measurements Intervals [place]aphne Rate: 93 P: 157 IA: 135 QRS: -8 QRSD: 101 T: 12 QT: 385 QTc: 481 Interpretive Statements ECTOPIC ATRIAL RHYTHM LOW QRS VOLTAGE IN PRECORDIAL LEADS [QRS DEFLECTION < 1.0 mV IN CHEST LEADS] INCOMPLETE RIGHT BUNDLE BRANCH BLOCK [90+ ms QRS DURATION, TERMINAL R IN V1/V2, 40+ ms S IN I/aVL/V4/V5/V6] ABNORMAL RHYTHM ECG Compared to ECG 10/26/2023 10:54:55 Ectopic atrial rhythm now present Low QRS voltage now present Incomplete right bundle-branch block now present Sinus rhythm no longer present Atrial abnormality no longer present Myocardial infarct finding no longer present Electronically Signed On 11-02-2023 16:07:00 RRTS by Shyam Bellamy M.D. [id number]
[2023-11-02 10:44] LABS: ABG PCO2 47.4 mmHg (35-45); ABG PH Result 7.47 (7.35-7.45); Arterial Blood Gas Hematocrit 32.3 % (37-47); Base Excess ABG 9.3 mmol/L (-2.0-2.0); Blood Gas Allen Test Pos; Blood Gas Operator Identificat WALCI; Blood Gas Sample Site Radial, left; Blood Gas Sample Type Arterial; Carboxyhemoglobin 2.1 %THgb (0.4-20.1); HCO3 ABG 34.2 mmol/L (22-26); HGB O2 Sat 90.6 % (95-100); Ionized Calcium Level - ABG 1.3 mmol/L (1.1-1.4); Methemoglobin 0.6 % (0.4-1.5); Oxygen Device NC; Oxygen Saturation ABG 93.1; PO2 ABG 59.7 mmHg (80.0-100.0); Potassium Level - ABG 4.1 mmol/L (3.5-5.0); Total Hemoglobin 10.5 g/dL (12-16)
[2023-11-02 10:45] LABS: Basophils % 0.2 %; Hematocrit 34.4 % (36-47); Lymphocytes # 2.2 10^3/uL (0.8-4.8); Lymphocytes % 16.3 %; Mean Corpuscular HGB Conc 30.2 g/dL (30-55); Mean Corpuscular Hemoglobin 28.7 pg (27-33); Mean Corpuscular Volume 94.8 fl (85-98); Mean Platelet Volume 10.6 fL (7.4-10.4); Monocytes # 0.8 10^3/uL (0.2-0.9); Monocytes % 5.9 %; Neutrophils # 10.37 10^3/uL (1.8-7.7); Neutrophils % 77.2 %; Nucleated Red Blood Cells % 0 %; Platelet Count 333 10^3/cmm (157-399); Red Blood Count 3.63 10^6/uL (3.85-5.65); Red Cell Distribution Width 14.6 % (12.1-15.1); White Blood Count 13.43 10^3/uL (3.29-11.43)
[2023-11-02 11:05] LABS: Troponin(5th) Baseline 47 ng/L (0-10)
[2023-11-02 11:34] LABS: Lactic Sepsis W/Reflex 2.1 mmol/L (0.5-2.2)
[2023-11-02 12:54] LABS: Reflex Lactate Order REFLEX LACTIC ORDERD
== END 2023-11-02 15:44 | disposition home or self-care (01) ==
PROVIDERS: Emergency Provider Family Medicine; PCP Nurse Practitioner Family
DX: I63.9 Cerebral infarction, unspecified (principal); I10 Essential (primary) hypertension; K56.609 Unspecified intestinal obstruction, unspecified as to partial versus complete obstruction; Z66 Do not resuscitate; Z51.5 Encounter for palliative care
CPT/HCPCS: 36415; 36600; 70450; 80051; 82330; 82805; 83605; 84484; 85025; 93005; 99285